=== PATIENT | female | born 1935 | race Caucasian/White ===

== ENCOUNTER → 2017-11-12 07:37 | Outpatient (CLI) | payer MEDICARE, SELFPAY ==
[2017-11-12 08:50] LABS: Microalbumin:Creatinine Ratio 100.8 mg/g CRE (<30 mg/g CRE)
[2017-11-12 08:56] LABS: AST(SGOT) 18 U/L (15-37); Alanine Aminotransfer ALT/SGPT 23 U/L (13-56); Albumin, Serum 3.8 g/dL (3.2-5.0); Alkaline Phosphatase 77 U/L (45-117); Bilirubin, Direct 0.15 mg/dL (0.00-0.30); Cholesterol 88 mg/dL (200); Globulin 3.8 g/dL (2.2-4.2); High Density Lipoprotein 37 mg/dL; Protein, Total 7.6 g/dL (6.4-8.2); Triglycerides 133 mg/dL; Very Low Density Lipoprotein 27 mg/dL (5-40)
[2017-11-12 08:59] LABS: Hemoglobin A1c 7.1 % (4.2-6.3)
[2017-11-12 09:06] LABS: T4 Free Direct 0.96 ng/dL (0.76-1.46)
== END ==
PROVIDERS: Family Provider Internal Medicine; PCP Internal Medicine; Visit Provider Internal Medicine Cardiovascular Disease
DX: E78.5 Hyperlipidemia, unspecified (principal); E11.65 Type 2 diabetes mellitus with hyperglycemia; E03.9 Hypothyroidism, unspecified; Z79.899 Other long term (current) drug therapy
CPT/HCPCS: 36415; 80061; 80076; 82043; 82570; 83036; 84439; 84443

== ENCOUNTER → 2018-03-09 10:24 | Outpatient (CLI) | payer MEDICARE, SELFPAY ==
[2018-03-09 12:52] LABS: Hemoglobin A1c 7.2 % (4.2-6.3)
== END ==
PROVIDERS: Nurse Practitioner Family; Family Provider Internal Medicine; PCP Internal Medicine; Referring Provider Internal Medicine; Visit Provider Internal Medicine
DX: E11.9 Type 2 diabetes mellitus without complications (principal)
CPT/HCPCS: 36415; 83036

== ENCOUNTER → 2018-03-15 13:37 | Outpatient (CLI) | payer MEDICARE, SELFPAY ==
[2018-03-15 16:06] LABS: T4 Free Direct 1.01 ng/dL (0.76-1.46); Thyroid Stim Hormone (TSH) 5.93 uIU/mL (0.358-3.74)
== END ==
PROVIDERS: Family Provider Internal Medicine; PCP Internal Medicine; Referring Provider Internal Medicine; Visit Provider Internal Medicine
DX: E03.9 Hypothyroidism, unspecified (principal)
CPT/HCPCS: 84439; 84443

== ENCOUNTER → 2018-06-05 07:57 | Outpatient (CLI) | payer MEDICARE, SELFPAY ==
[2018-03-12 09:46] VITALS: BMI 27.1
[2018-06-05 08:56] LABS: AST(SGOT) 13 U/L (15-37); Alanine Aminotransfer ALT/SGPT 21 U/L (13-56); Albumin, Serum 3.7 g/dL (3.2-5.0); Alkaline Phosphatase 74 U/L (45-117); Bilirubin, Direct 0.18 mg/dL (0.00-0.30); Cholesterol 115 mg/dL (200); Globulin 3.7 g/dL (2.2-4.2); High Density Lipoprotein 38 mg/dL; Protein, Total 7.4 g/dL (6.4-8.2); Triglycerides 134 mg/dL; Very Low Density Lipoprotein 27 mg/dL (5-40)
[2018-06-05 16:13] LABS: Xtra Tube EP Lab EXTRA TUBE
[2018-06-08 07:49] LABS: Hemoglobin A1c 8.9 % (4.2-6.3)
== END ==
PROVIDERS: Family Provider Internal Medicine; PCP Internal Medicine; Referring Provider Nurse Practitioner Family; Visit Provider Nurse Practitioner Family
DX: E11.9 Type 2 diabetes mellitus without complications (principal); E78.5 Hyperlipidemia, unspecified
CPT/HCPCS: 36415; 80061; 80076; 83036

== ENCOUNTER → 2018-06-22 07:40 | Outpatient (CLI) | payer MEDICARE, SELFPAY ==
[2018-06-08 14:36] VITALS: BMI 26.9
[2018-06-11 09:25] VITALS: BMI 26.9
--- NOTE | 2018-06-22 07:42 | ECHOD_ITS ---
Reason For Study: cabg/mvr Procedure This was a 2D Doppler, Color Flow transthoracic echocardiogram. Exam performed in department. Left Ventricle Normal size and thickness. The estimated ejection fraction is 65 %. No regional wall motion abnormalities noted. Right Ventricle Normal size and thickness. Normal systolic function. Atria Normal left atrium. Normal right atrium. Normal atrial septum. Mitral Valve Peak transmitral valve gradient 8 mmHg. Mean transmitral valve gradient 4 mmHg. Stable appearing bioprosthetic mitral valve apparatus. Tricuspid Valve Normal tricuspid valve. Mild (1+) tricuspid valve insufficiency. Right ventricular systolic pressure estimated to be 31 mmHg. Aortic Valve Trisinus/trileaflet aortic valve. Normal aortic valve. Pulmonic Valve Normal pulmonic valve. Trivial pulmonic valve insufficiency. Great Vessels Normal aortic root. Normal arch. Normal inferior vena cava. Inferior vena cava collapse with sniff. Pericardium/Pleural No pericardial effusion. MMode/2D Measurements & Calculations LVIDd: 3.9 cm IVSd: 0.96 cm Ao root diam: 3.0 cm LVIDs: 2.2 cm LVPWd: 0.91 cm RVDd: 2.5 cm FS: 42.4 % LAV(MOD-bp): 56.1 ml EDV(MOD-sp4): 47.6 ml SV(MOD-sp4): 31.6 ml LAV(MOD-bp) Indexed: 31.4 ml/m2 ESV(MOD-sp4): 16.0 ml LAV(MOD-sp2): 69.4 ml EF(MOD-sp4): 66.4 % LAV(MOD-sp4): 44.2 ml LA dimension(2D): 3.7 cm LA A4 area: 17.1 cm2 RA A4 area: 9.7 cm2 Time Measurements MV dec time: 0.26 sec Doppler Measurements & Calculations MV E max luther: 154.9 cm/sec Lat Peak E' Luther: 7.6 cm/sec Med Peak E' Luther: 5.0 cm/sec MV A max luther: 131.1 cm/sec E/E' lat: 20.5 E/E' med: 31.2 MV E/A: 1.2 MV V2 max: 144.1 cm/sec Ao V2 max: 183.0 cm/sec LV V1 max: 132.2 cm/sec MV max P.3 mmHg Ao max P.4 mmHg LV V1 max P.0 mmHg MV V2 mean: 96.6 cm/sec Ao V2 mean: 130.9 cm/sec LV V1 mean P.9 mmHg MV mean P.1 mmHg Ao mean P.5 mmHg LV V1 mean: 93.9 cm/sec MV V2 VTI: 48.8 cm Ao V2 VTI: 42.0 cm LV V1 VTI: 31.7 cm PA V2 max: 84.3 cm/sec PI end-d luther: 94.4 cm/sec TR max luther: 252.7 cm/sec TR max P.6 mmHg MV P1/2t-pr_phl: 102.5 msec Interpretation Summary The estimated ejection fraction is 65 %. Stable appearing bioprosthetic mitral valve apparatus with normal gradients. Mild (1+) tricuspid valve insufficiency. Right ventricular systolic pressure estimated to be 31 mmHg. Compared to echo report dated 05/07/2017, no appreciable changes noted. Ordering Physician: Ruddy Lewis Referring Physician: Renetta Barr Performed By: Enid Gómez, MICHAEL, RVT
== END ==
PROVIDERS: Family Provider Internal Medicine; PCP Internal Medicine; Referring Provider Internal Medicine Cardiovascular Disease; Visit Provider Internal Medicine Cardiovascular Disease
DX: Z95.3 Presence of xenogenic heart valve (principal); Z95.1 Presence of aortocoronary bypass graft
CPT/HCPCS: 93306

== ENCOUNTER → 2018-06-24 09:19 | Outpatient (CLI) | payer MEDICARE, SELFPAY ==
[2018-06-08 14:36] VITALS: BMI 26.9
[2018-06-11 09:25] VITALS: BMI 26.9
--- NOTE | 2018-06-24 09:22 | STE_ITS ---
Reason For Study: S/P CABG Stress Results Protocol: Stress Echocardiogram Maximum Predicted HR: 140 bpm Target HR: 119 bpm % Maximum Predicted HR: 94 % DurationHeart Rate Stage (mm:ss) (bpm) BP BASELINE 70 132/60 NESTOR PROTOCOL- STAGE 1 3:00 114 142/84 NESTOR PROTOCOL- STAGE 2 0:44 131 / RECOVERY 74 124/60 Stress Duration: 3:44 mm:ss Maximum Stress HR: 131 bpm Baseline Echocardiogram Findings The estimated ejection fraction is 65 %. Stable appearing bioprosthetic mitral valve apparatus. Stress Echo Wall motion Data Resting WM Intermediate WM Stress WM Resting Wall Motion Wall Motion Stress No regional wall motion No regional wall motion abnormalities noted. abnormalities noted. EKG Data The baseline ECG displays normal sinus rhythm. The patient exercised according to the regular Nestor protocol for a total duration of 3:44. The maximum heart rate attained was 131 beats per minute. This was 93% of maximum predicted heart rate. The patient exercised into stage 2 of the Nestor protocol. During stress, there were no ST or T wave changes noted to suggest ischemia. No clinical angina was noted. No arrhythmias noted. Interpretation Summary The estimated ejection fraction is 65 %. Normal, adequate, treadmill echocardiogram. Negative for ischemia by EKG and echocardiographic criteria. No anginal symptoms noted. No arrhythmias noted. Appropriate blood pressure response to exercise. Average exercise capacity for age. Final LVEF is 75%. Test terminated due to the attainment of target heart rate. Ordering Physician: Ruddy Lewis Referring Physician: Ruddy Lewis Performed By: Brianna Fisher RDCS
== END ==
PROVIDERS: Family Provider Internal Medicine; PCP Internal Medicine; Referring Provider Internal Medicine Cardiovascular Disease; Visit Provider Internal Medicine Cardiovascular Disease
DX: I25.10 Atherosclerotic heart disease of native coronary artery without angina pectoris (principal); I48.0 Paroxysmal atrial fibrillation; Z95.3 Presence of xenogenic heart valve
CPT/HCPCS: 93017; 93350

== ENCOUNTER → 2018-07-07 08:08 | Outpatient (CLI) | payer MEDICARE, SELFPAY ==
[2018-06-11 09:25] VITALS: BMI 26.9
[2018-07-07 10:48] LABS: AST(SGOT) 11 U/L (15-37); Alanine Aminotransfer ALT/SGPT 21 U/L (13-56); Albumin, Serum 3.7 g/dL (3.2-5.0); Alkaline Phosphatase 91 U/L (45-117); Bilirubin, Direct 0.11 mg/dL (0.00-0.30); Cholesterol 135 mg/dL (200); Globulin 4.2 g/dL (2.2-4.2); High Density Lipoprotein 36 mg/dL; Protein, Total 7.9 g/dL (6.4-8.2); Triglycerides 158 mg/dL; Very Low Density Lipoprotein 32 mg/dL (5-40)
[2018-07-07 10:55] LABS: T4 Free Direct 0.87 ng/dL (0.76-1.46)
== END ==
PROVIDERS: Nurse Practitioner Family; Family Provider Internal Medicine; PCP Internal Medicine; Referring Provider Internal Medicine; Visit Provider Internal Medicine
DX: E11.9 Type 2 diabetes mellitus without complications (principal); E03.9 Hypothyroidism, unspecified; E78.5 Hyperlipidemia, unspecified
CPT/HCPCS: 36415; 80061; 80076; 83036; 84439; 84443

== ENCOUNTER → 2018-08-27 09:34 | Outpatient (CLI) | payer MEDICARE, SELFPAY ==
[2018-08-10 09:25] VITALS: BMI 26.1
[2018-08-27 13:16] LABS: T4 Free Direct 1.36 ng/dL (0.76-1.46); Thyroid Stim Hormone (TSH) 1.41 uIU/mL (0.358-3.74)
== END ==
PROVIDERS: Family Provider Internal Medicine; PCP Internal Medicine; Visit Provider Internal Medicine
DX: E03.9 Hypothyroidism, unspecified (principal)
CPT/HCPCS: 36415; 84439; 84443

== ENCOUNTER → 2018-10-06 10:38 | Outpatient (CLI) | payer MEDICARE, SELFPAY ==
[2018-10-05 13:29] VITALS: BMI 25.7
[2018-10-06 12:30] LABS: Absolute Lymphocyte Count 1.88 X10^3/ul (0.83-4.51); Absolute Neutrophil Count 3.7 X10^3/uL (2.0-7.7); Basophil# 0.03 X10^3/uL; Basophil% 0.5 % (0-1); Eosinophil# 0.22 X10^3/uL; Eosinophils% 3.3 % (0-5); Hematocrit 41.1 % (37-47); Hemoglobin 13.4 g/dl (12.0-15.0); Lymphocyte # 1.88 X10^3/ul (4.0); Lymphocyte % 28.6 % (19-41); Mean Corp Hgb Conc 32.6 g/gl (32-36); Mean Corpuscular Hgb 29.1 pg (27.0-32.0); Mean Corpuscular Volume 89.2 fL (81-99); Mean Platelet Vol. 11.5 fl (6.2-12.0); Monocyte# 0.77 X10^3/uL; Monocyte% 11.7 % (0-10); Neutrophil # 3.67 X10^3/uL (2.7-7.7); Neutrophil % 55.7 % (47-70); Platelet Count 267 K/mm3 (150-450); RBC Distribution Width CV 13.7 % (11.6-14.6); Red Blood Count 4.61 M/mm3 (4.2-5.4); White Blood Count 6.6 K/mm3 (4.4-11.0)
[2018-10-06 12:36] LABS: POSITIVE COUNT NO; POSITIVE DIFFERENTIAL NO; POSITIVE MORPHOLOGY NO
== END ==
PROVIDERS: Family Provider Internal Medicine; PCP Internal Medicine; Visit Provider Nurse Practitioner Family
DX: E78.5 Hyperlipidemia, unspecified (principal); R53.83 Other fatigue
CPT/HCPCS: 36415; 85025

== ENCOUNTER → 2019-01-06 09:04 | Outpatient (CLI) | payer MEDICARE, SELFPAY ==
[2019-01-05 09:30] VITALS: BMI 25.7
[2019-01-06 12:53] LABS: Microalbumin,Random Urine 10.8 mg/L (NO RANGE EST.); Microalbumin:Creatinine Ratio 17.2 mg/g CRE (<30 mg/g CRE); T4 Free Direct 0.86 ng/dL (0.76-1.46); Thyroid Stim Hormone (TSH) 2.85 uIU/mL (0.358-3.74)
[2019-01-06 12:55] LABS: AST(SGOT) 16 U/L (15-37); Alanine Aminotransfer ALT/SGPT 19 U/L (13-56); Albumin, Serum 3.6 g/dL (3.2-5.0); Alkaline Phosphatase 63 U/L (45-117); Bilirubin, Direct 0.12 mg/dL (0.00-0.30); Cholesterol 109 mg/dL (200); Globulin 3.9 g/dL (2.2-4.2); High Density Lipoprotein 39 mg/dL; Protein, Total 7.5 g/dL (6.4-8.2); Triglycerides 112 mg/dL; Very Low Density Lipoprotein 22 mg/dL (5-40)
== END ==
PROVIDERS: Nurse Practitioner Family; Family Provider Internal Medicine; PCP Internal Medicine; Visit Provider Internal Medicine
DX: E11.9 Type 2 diabetes mellitus without complications (principal); E78.5 Hyperlipidemia, unspecified; E03.9 Hypothyroidism, unspecified
CPT/HCPCS: 36415; 80061; 80076; 82043; 82570; 84439; 84443

== ENCOUNTER → 2019-03-17 09:15 | Outpatient (CLI) | payer MEDICARE, SELFPAY ==
[2019-03-16 13:26] VITALS: BMI 24.3
[2019-03-17 11:00] LABS: Prolactin 16.9 ng/mL
== END ==
PROVIDERS: Family Provider Internal Medicine; PCP Internal Medicine; Visit Provider Internal Medicine
DX: N64.52 Nipple discharge (principal)
CPT/HCPCS: 36415; 84146

== ENCOUNTER → 2019-03-22 | Outpatient (CLI) | payer MEDICARE, SELFPAY ==
[2019-03-16 13:26] VITALS: BMI 24.3
--- NOTE | 2019-03-22 08:36 | BI_ITS ---
MAMMOGRAPHY - BILATERAL DIAGNOSTIC REASON FOR EXAM: Female, 83 years old. Six-month history of right breast discharge. PERTINENT HISTORY: Non-contributory. TECHNIQUE: Digital bilateral breast kaylin (3D mammographic acquisition) in the CC and MLO projections. 2-D mediolateral oblique (MLO) and craniocaudad (CC) views of both breasts were obtained. Compression spot views of the breast were obtained as well. CAD: Full Field Digital Mammography with Computer Added Detection was performed. COMPARISON: Comparison is made with prior mammogram dated March 16, 2008. FINDINGS: Breast Composition: There are scattered areas of fibroglandular density. There are no dominant masses or suspicious calcifications. Amorphous calcifications are now seen in the inferior medial aspect of the right breast. A biopsy is recommended. No other significant abnormalities are identified. BI/DIAG MAMM W/CAD, BILAT IMPRESSION: Amorphous calcifications seen in the inferior medial aspect of the right breast. Biopsy recommended. ASSESSMENT CATEGORY: BIRADS Category 4: Suspicious - Biopsy Should Be Considered. A letter regarding these results will be sent to the patient by the facility within 30 days. Approximately 10% of breast cancers are not detected by mammography. A normal mammogram should not delay biopsy of a clinically suspicious abnormality. Electronically Signed: Abel Mcmahon, at 11:16 EDT , Service support ,
--- NOTE | 2019-03-22 10:03 | US_ITS ---
STUDY: ULTRASOUND BREAST - RIGHT REASON FOR EXAM: Female, 83 years old. Patient has a history of right nipple discharge. TECHNIQUE: Axial and longitudinal images of the RIGHT breast were performed with a high resolution ultrasound transducer. COMPARISON: Comparison is made with prior mammogram done earlier in the day. FINDINGS: RIGHT Breast: The retroareolar region of the right breast was examined by ultrasound. No sonographic abnormality is seen US/Breast Limited Unilateral IMPRESSION: No sonographic abnormality is seen. ASSESSMENT CATEGORY: BIRADS Category 1: Negative. A letter regarding these results will be sent to the patient by the facility within 30 days. Electronically Signed: Abel Mcmahon, at 11:01 EDT , Service support ,
== END | disposition home or self-care (01) ==
LOC: OPBI 08:34
PROVIDERS: Family Provider Internal Medicine; PCP Internal Medicine; Referring Provider Internal Medicine; Visit Provider Internal Medicine
DX: N64.52 Nipple discharge (principal)
CPT/HCPCS: 76642; 77062; 77066; G0279

== ENCOUNTER → 2019-04-05 10:27 | Outpatient (CLI) | payer MEDICARE, SELFPAY ==
--- NOTE | 2019-03-24 02:56 | HP_ITS ---
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 Is patient in pain?: No Allergies cortisone Allergy (Verified 03/16/19 13:23) Hives erythromycin base Allergy (Verified 03/16/19 13:23) Swelling Medications aspirin 81 mg tablet,delayed release PO 07/29/17 [History Confirmed 03/24/19] trazodone 50 mg tablet 25 mg PO QHS PRN #60 tab 11/27/17 [Rx Confirmed 03/24/19] citalopram 10 mg tablet 10 mg PO DAILY 06/08/18 [History Confirmed 03/24/19] losartan 50 mg tablet 25 mg PO QDAY tab 06/11/18 [History Confirmed 03/24/19] sitagliptin 100 mg tablet 100 mg PO DAILY #90 tab 06/11/18 [Rx Confirmed 03/24/19] levothyroxine 75 mcg tablet 75 mcg PO QDAY #90 tab 07/07/18 [Rx Confirmed 03/24/19] blood sugar diagnostic strips See Dose Instructions .ROUTE .MEDSUPPLY #50 ea 08/30/18 [Rx Confirmed 03/24/19] metformin 500 mg tablet 1,000 mg PO BID 90 Days #360 tab 10/05/18 [Rx Confirmed 03/24/19] metoprolol tartrate 50 mg tablet 50 mg PO BID tab 10/05/18 [History Confirmed 03/24/19] rosuvastatin 40 mg tablet 40 mg PO QDAY #90 tab 10/12/18 [Rx Confirmed 03/24/19] Is last menstrual period known: No Post menopausal: Yes Patient : No PFSH Medical History Paroxysmal atrial fibrillation (Chronic) Atherosclerosis of coronary artery of [place] heart without angina 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) Diabetes type 2, uncontrolled (Chronic) Tremor (Chronic) Syncope (Chronic) IBS (irritable bowel syndrome) (Chronic) GERD (gastroesophageal reflux disease) (Chronic) Hypothyroidism (Chronic) Hyperlipemia (Chronic) Hypertension (Chronic) History of hysterectomy (Chronic) Surgical History History of mitral valve replacement with bioprosthetic valve (Chronic 11/23/09) 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) History of carpal tunnel release (Chronic) History of knee surgery (Chronic) Family History Mother Heart disease Myocardial infarction Father Tuberculosis Brother Diabetes Sister Heart disease Social History (Updated 03/24/19 @ 14:57 by Ruddy Humphries MD) Smoking Status: Never smoker alcohol intake: never substance use type: does not use what type of physical activity do you participate in: none HPI HPI HPI: LAKEISHA SHIRLEY, is a 83 F who presents to the office today for HPI HPI Surgical H&P: Yes HPI: LAKEISHA SHIRLEY, is a 83 F who presents to the office today for Evaluation of an abnormal mammogram. Patient had her mammograms completed was [facility] on 03/22/2019. This came back showing a amorphous calcification seen in the inferior medial aspect of the right breast and a biopsy was recommended. They gave this a BI-RADS Category 4. Patient has had numerous biopsies in the past never a stereotactic breast biopsy though. She is not having any breast pain at the present time she is not experiencing any nipple discharge. ROS General General: No weight change, appetite, fatigue, colon cancer, breast cancer or weakness HEENT HEENT: No difficulty swallowing, eye injury, eye surgery, swollen glands or hoarseness Endo Endocrine: Yes thyroid disease and diabetes mellitus; no thyroid cancer, Hair loss, heat intolerance or cold intolerance Breast Breast: Yes nipple discharge and abnormal mammogram; no left breast lump, right breast lump, breast pain, abnormal US or breast enlargement Cardio Cardiovascular: Yes heart disease, atrial fibrillation and high blood pressure; no murmur, pacemaker, heart attack, heart stent, palpitations, shortness of breat with exertion or chest pain Additional Details: CABG, CAD, Mitral valve replacement Resp Respiratory: No shortness of breath, No sleep apnea, No cough, No COPD, No asthma, No emphysema, No wheezing Gastro Gastrointestinal: No abdominal pain, No nausea or vomiting, Yes diarrhea, No constipation, No blood in stool, Yes acid reflux, No hemorrhoids, No ulcers, No gallbladder problem, No black,tarry stools Neuro Neurologic: No weakness Exam [facility] Head: normal to inspection, normocephalic, atraumatic Mouth: oropharynx normal, moist mucous membranes Eyes General: appearance normal, both eyes and all related structures Sclera: sclerae normal Neck Neck: trachea midline, no lymphadenopathy noted Neck mass: No Thyroid: thyroid normal Lymphatic: no lymphadenopathy noted Chest Breast inspection: normal inspection of the breasts Breast Palpation: Yes nipple discharge Resp Other: Respiratory Exam: Deferred Cardio Heart Sounds: no murmurs Other: Cardiac Exam: Deferred GI Other: GI Exam: Deferred Other: Rectal Exam: Deferred Extrem Other: Extremity Exam: Deferred Assessment & Plan Problems 1. Microcalcification of right breast on mammogram R92.0 Plan I have discussed above with the patient. I have recommended Stereotactic guided needle core breast biopsy with vacuum assistance. I have described the procedure to the patient. I have discussed with the patient that sometimes the Stereotactic lesion may be artifact and is user dependent and therefore prior to undergoing the procedure, the patient will have a definitive US to ensure that the lesion is truly present and is not artifact. A marker clip will be placed to identify the location. Patient has been counseled to the risks/benefits of the procedure. I have explained the risks of the surgery, including but not limited to: infection, bleeding, injury to any blood vessels/nerves, scar tissue, missing the lesion, further surgery, etc. - the patient understands and agrees to proceed. I have answered all of the patient's questions to her satisfaction and she has no further questions. Coding Level of Care Code Off vis,new,level 3 Diagnoses Microcalcification of right breast on mammogram R92.0 03/24/19 0550 <Electronically signed by Ruddy iniguez MD> Date _ Ruddy Humphries MD I have re-examined the patient. There are no clinical changes since date of exam.
[2019-03-24 14:40] VITALS: BMI 24.3
--- NOTE | 2019-04-05 | IMM_PTH ---
PATIENT: LAKEISHA SHIRLEY LOC: [facility] U#:[id number] AGE/SX: 89/F ROOM: RE04/05/[address]: Dr. Ruddy Humphries MD : 1935 BED: DIS: SPEC #: [id number] RECD: 04/06/19 12:18 STATUS: AIDE REQ #: [id number] DENNIS: 04/05/19 00:[address]: Ruddy Humphries DEPT: IMMUNOHISTOCHEMISTRY RECD BY: Destini Win ENTERED: 04/06/19 12:20 SP TYPE: IMMUNO OTHR DR: Dr. Renetta Barr MD Tissues: Right breast, NOS Procedures: CALPONIN-1 (add) CK5-6 (add) CK8 (add) E-CAD (add) HER2 STACI (add) KI-67 (add) P53 (add) NC (add) P40 (add) ER (initial) PHYSICIAN & INSTITUTION [place] [id number] SPECIMEN INFORMATION: Tissue Source: Right breast core tissue Clinical Info: Right breast medial inferior microcalcification Specimen Number: [id number] #[id number] CPT code: 66019, 57880 x6, 52410 x3 METHODOLOGY: Deparaffinized sections of prefer/formalin-fixed tissue or PAP/DQ stained slides are incubated with monoclonal/polyclonal antibodies/oligonucleotide probes. Localization is made via biotin free immunoperoxidase method. Appropriate controls are performed and reacted as expected. Results on target cell population are indicated in the following table: RESULTS: ANTIBODY / CLONE RESULT Block 5 E-Cad (ECH-6) positive CK8 (37oyrrH48) positive Calponin-1 (EZ706M) negative CK5-6 (D5 & 1684) negative P40 (BC28) negative P53 (DO-7) positive, moderate Ki-67 (30-9) positive, low MORPHOMETRIC ANALYSIS ER (clone 6F11) 0% NC (clone 16/1E2) 0% Her-2Neu (clone CB11) 3+ The prognostic test for HER2 is performed on formalin-fixed paraffin embedded tissue. A 3+ (positive) staining pattern is defined as intense, homogeneous, complete, circumferential membranous staining in >10% of contiguous tumor cells. A similar weak (2+) staining pattern is interpreted as equivocal. CARMEN follow-up testing is recommended for all equivocal cases. Positivity/negativity for ER/NC is reported if > or < 1% of the tumor cells are immuno- reactive, respectively. The ASCO/CAP criteria is used for scoring. Reference: Journal of Clinical Oncology, 2013; 31:9136-8901 & 2010; 16:3474-3305. Duration of fixation: 8 Hrs; Sample Adequate: Yes. These assays have not been validated on decalcified tissues. Results should be interpreted with caution given the likelihood of false negativity on decalcified specimens. These tests were developed and their performance characteristics determined by [facility]. They may not have been cleared or approved by the U.S. Food and Drug Administration. The FDA has determined that such clearance or approval is not necessary. The above immunohistochemical/dualISH markers are ordered and reviewed by the Pathologist. INTERPRETATION: Right breast, medial inferior microcalcification, stereotactic core biopsy: Invasive ductal carcinoma, nuclear grade 3. Negative for estrogen receptors (unfavorable prognostic indicator). Negative for progesterone receptors (unfavorable prognostic indicator). Positive for overexpression of FGN0khf. SJ:westley 04/07/19 Case has been reviewed in consultation with Dr. Gaming who concurs with the above diagnosis. IDC:AM
--- NOTE | 2019-04-05 11:00 | BRBX_PTH ---
PATIENT: LAKEISHA SHIRLEY LOC: [facility] U#:[id number] AGE/SX: 89/F ROOM: RE04/05/[address]: Dr. Ruddy Humphries MD : 1935 BED: DIS: SPEC #: [id number] RECD: 04/05/19 11:59 STATUS: AIDE REGINO #: [id number] DENNIS: 04/05/19 11:[address]: Ruddy Humphries DEPT: SURGICAL PATHOLOGY RECD BY: Beatriz Johnson ENTERED: 04/05/19 12:19 SP TYPE: BREAST BX OTHR DR: Dr. Renetta Barr MD Tissues: Right breast, NOS Procedures: Surgery Specimen Level IV HEADER OPERATION: Right stereotactic breast biopsy PRE-OP DIAGNOSIS: Right breast medial inferior microcalcification TISSUE SUBMITTED: Right breast core tissue ISCHEMIC TIME: 1 minute FIXATION TIME: 8 hours MICROSCOPIC DIAGNOSIS Right breast, medial inferior microcalcifications, stereotactic core biopsy: Invasive ductal carcinoma (0.3 cm in greatest dimension). Additional findings - fibrocystic changes, adenosis and intraductal hyperplasia with focal atypia. Focal microcalcifications. See comment. JAMMIE:westley 04/06/19 COMMENT Immunohistochemistry ([id number]) supports the above diagnosis. ER/NJ/Sog4uxa studies are being performed on sections of tumor and the results from this study will be reported separately ([id number]). Case has been reviewed in consultation with Dr. Gaming who concurs with the above diagnosis. IDC:AM MICROSCOPIC DESCRIPTION Slides are reviewed. GROSS DESCRIPTION Received is one container labeled with the patient's name and not further designated. The specimen consists of multiple elongated fragments of velasco-yellow fibroadipose tissue that in aggregate measure 5 x 3 x 0.8 cm. The entire specimen is submitted in five cassettes. / JAMMIE:westley 04/05/19 TC:0 CPT: 57642
--- NOTE | 2019-04-05 11:34 | PCM.HP.BLA ---
History and Physical Date of Admission: 04/05/19 [facility] Medical Records Department [address] [place] [address] History and Physical 03/24/19 0256 MR#: [id number] Acct: [id number] Name: LAKEISHA SHIRLEY Rep #: [id number] : 1935 83 From: Ruddy Humphries MD PCP: Renetta Barr MD Status: PRE CLI Location: [facility] Intake Vital Signs 03/24/19 Body Mass Index (BMI) 24.3 03/24/19 Height 5 ft 5 in 03/24/19 Weight: 146 lb 2 oz 03/24/19 Body Mass Index (BMI) 24.3 03/24/19 Blood Pressure 139/69 H 03/24/19 Blood Pressure Location Rt brachial 03/24/19 Blood Pressure Position Sitting 03/24/19 Respiratory Rate 20 H 03/24/19 Pulse Rate 70 03/24/19 Pulse Ox 99 Intake Visit Reasons: Rt Breast Birads 4 Chief Complaint: discharge Rt breast Straddle Bug Operator Required: No Is patient in pain?: No Allergies cortisone Allergy (Verified 03/16/19 13:23) Hives erythromycin base Allergy (Verified 03/16/19 13:23) Swelling Medications aspirin 81 mg tablet,delayed release PO 07/29/17 [History Confirmed 03/24/19] trazodone 50 mg tablet 25 mg PO QHS PRN #60 tab 11/27/17 [Rx Confirmed 03/24/19] citalopram 10 mg tablet 10 mg PO DAILY 06/08/18 [History Confirmed 03/24/19] losartan 50 mg tablet 25 mg PO QDAY tab 06/11/18 [History Confirmed 03/24/19] sitagliptin 100 mg tablet 100 mg PO DAILY #90 tab 06/11/18 [Rx Confirmed 03/24/19] levothyroxine 75 mcg tablet 75 mcg PO QDAY #90 tab 07/07/18 [Rx Confirmed 03/24/19] blood sugar diagnostic strips See Dose Instructions .ROUTE .MEDSUPPLY #50 ea 08/30/18 [Rx Confirmed 03/24/19] metformin 500 mg tablet 1,000 mg PO BID 90 Days #360 tab 10/05/18 [Rx Confirmed 03/24/19] metoprolol tartrate 50 mg tablet 50 mg PO BID tab 10/05/18 [History Confirmed 03/24/19] rosuvastatin 40 mg tablet 40 mg PO QDAY #90 tab 10/12/18 [Rx Confirmed 03/24/19] Is last menstrual period known: No Post menopausal: Yes Patient : No PFSH Medical History Paroxysmal atrial fibrillation (Chronic) Atherosclerosis of coronary artery of [place] heart without angina 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) Diabetes type 2, uncontrolled (Chronic) Tremor (Chronic) Syncope (Chronic) IBS (irritable bowel syndrome) (Chronic) GERD (gastroesophageal reflux disease) (Chronic) Hypothyroidism (Chronic) Hyperlipemia (Chronic) Hypertension (Chronic) History of hysterectomy (Chronic) Surgical History History of mitral valve replacement with bioprosthetic valve (Chronic 11/23/09) 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) History of carpal tunnel release (Chronic) History of knee surgery (Chronic) Family History Mother Heart disease Myocardial infarction Father Tuberculosis Brother Diabetes Sister Heart disease Social History (Updated 03/24/19 @ 14:57 by Ruddy Humphries MD) Smoking Status: Never smoker alcohol intake: never substance use type: does not use what type of physical activity do you participate in: none HPI HPI HPI: LAKEISHA SHIRLEY is a 83 F who presents to the office today for HPI HPI Surgical H&P: Yes HPI: LAKEISHA SHIRLEY, is a 83 F who presents to the office today for Evaluation of an abnormal mammogram. Patient had her mammograms completed [facility] on 03/22/2019. This came back showing a amorphous calcification seen in the inferior medial aspect of the right breast and a biopsy was recommended. They gave this a BI-RADS Category 4. Patient has had numerous biopsies in the past never a stereotactic breast biopsy though. She is not having any breast pain at the present time she is not experiencing any nipple discharge. ROS General General: No weight change, appetite, fatigue, colon cancer, breast cancer or weakness HEENT HEENT: No difficulty swallowing, eye injury, eye surgery, swollen glands or hoarseness Endo Endocrine: Yes thyroid disease and diabetes mellitus; no thyroid cancer, Hair loss, heat intolerance or cold intolerance Breast Breast: Yes nipple discharge and abnormal mammogram; no left breast lump, right breast lump, breast pain, abnormal US or breast enlargement Cardio Cardiovascular: Yes heart disease, atrial fibrillation and high blood pressure; no murmur, pacemaker, heart attack, heart stent, palpitations, shortness of breat with exertion or chest pain Additional Details: CABG, CAD, Mitral valve replacement Resp Respiratory: No shortness of breath, No sleep apnea, No cough, No COPD, No asthma, No emphysema, No wheezing Gastro Gastrointestinal: No abdominal pain, No nausea or vomiting, Yes diarrhea, No constipation, No blood in stool, Yes acid reflux, No hemorrhoids, No ulcers, No gallbladder problem, No black,tarry stools Neuro Neurologic: No weakness Exam HENMT Head: normal to inspection, normocephalic, atraumatic Mouth: oropharynx normal, moist mucous membranes Eyes General: appearance normal, both eyes and all related structures Sclera: sclerae normal Neck Neck: trachea midline, no lymphadenopathy noted Neck mass: No Thyroid: thyroid normal Lymphatic: no lymphadenopathy noted Chest Breast inspection: normal inspection of the breasts Breast Palpation: Yes nipple discharge Resp Other: Respiratory Exam: Deferred Cardio Heart Sounds: no murmurs Other: Cardiac Exam: Deferred GI Other: GI Exam: Deferred Other: Rectal Exam: Deferred Extrem Other: Extremity Exam: Deferred Assessment & Plan Problems 1. Microcalcification of right breast on mammogram R92.0 Plan I have discussed above with the patient. I have recommended Stereotactic guided needle core breast biopsy with vacuum assistance. I have described the procedure to the patient. I have discussed with the patient that sometimes the Stereotactic lesion may be artifact and is user dependent and therefore prior to undergoing the procedure, the patient will have a definitive US to ensure that the lesion is truly present and is not artifact. A marker clip will be placed to identify the location. Patient has been counseled to the risks/benefits of the procedure. I have explained the risks of the surgery, including but not limited to: infection, bleeding, injury to any blood vessels/nerves, scar tissue, missing the lesion, further surgery, etc. - the patient understands and agrees to proceed. I have answered all of the patient's questions to her satisfaction and she has no further questions. Coding Level of Care Code Off vis,new,level 3 Diagnoses Microcalcification of right breast on mammogram R92.0 03/24/19 1457 <Electronically signed by Ruddy Humphries MD> Date Ruddy Humphries MD Date: Time: Ruddy Humphries MD CC: ~ Date Dictated: 03/24/19 0256 Date Transcribed: 03/28/19 1033 Riding Double: Draft I have re-examined the patient. There are no clinical changes since date of exam.
--- NOTE | 2019-04-05 11:35 | PCM.OPRPT ---
Problem List (1) Microcalcification of right breast on mammogram Status: Acute Report of Operation Date of Procedure: 04/05/19 Pre-Operative Diagnosis: Microcalcifications to right breast Post-Operative Diagnosis: Same Surgery/Procedure Performed:: Right stereotactic breast biopsy Type of Anesthesia:: Local Description of Procedure: Patient was brought into the mammography unit placed in the supine position on the fissure table. Right breast was brought down through the opening. Medial to lateral view was obtained. Microcalcifications were identified ?15 degrees views were obtained. I targeted on the microcalcifications. I prepped the breast with Betadine. I injected 1% lidocaine plain. A skin gila was made. I placed the needle in the prefire position. 2 more stereo views were obtained showing the microcalcifications to be targeted appropriately. I fired the needle and took 360 degree circumferential biopsies. I x-rayed my specimen. Micro calcifications were identified. I backed the needle off 6 mm and placed a small titanium clip in the biopsy cavity. Sterile dressings were applied. Mammograms were obtained. Patient tolerated the procedure well. - Admit VTE Documentation VTE Present on Admission: No VTE Mechan Device Prophylaxis: None VTE Pharm Prophylaxis ordered?: No Reason prophylaxis not ordered:: Treatment Not Indicated
== END ==
PROVIDERS: Family Provider Internal Medicine; PCP Internal Medicine; Referring Provider Surgery; Visit Provider Surgery
DX: C50.311 Malignant neoplasm of lower-inner quadrant of right female breast (principal); N60.21 Fibroadenosis of right breast; N62 Hypertrophy of breast; I48.0 Paroxysmal atrial fibrillation; I25.10 Atherosclerotic heart disease of native coronary artery without angina pectoris; I05.2 Rheumatic mitral stenosis with insufficiency; E11.65 Type 2 diabetes mellitus with hyperglycemia; I10 Essential (primary) hypertension; E03.9 Hypothyroidism, unspecified; E78.5 Hyperlipidemia, unspecified; K58.9 Irritable bowel syndrome, unspecified; K21.9 Gastro-esophageal reflux disease without esophagitis; Z78.0 Asymptomatic menopausal state; Z79.82 Long term (current) use of aspirin; Z79.84 Long term (current) use of oral hypoglycemic drugs; Z79.899 Other long term (current) drug therapy; Z88.1 Allergy status to other antibiotic agents; Z95.2 Presence of prosthetic heart valve; Z90.710 Acquired absence of both cervix and uterus; Z95.1 Presence of aortocoronary bypass graft
CPT/HCPCS: 19081; 88305; 88341; 88342; J7050; A4648

== ENCOUNTER 2019-04-26 15:01 | Observation (INO) | payer MEDICARE, SELFPAY ==
--- NOTE | 2019-03-24 02:56 | HP_ITS ---
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 Is patient in pain?: No Allergies cortisone Allergy (Verified 03/16/19 13:23) Hives erythromycin base Allergy (Verified 03/16/19 13:23) Swelling Medications aspirin 81 mg tablet,delayed release PO 07/29/17 [History Confirmed 03/24/19] trazodone 50 mg tablet 25 mg PO QHS PRN #60 tab 11/27/17 [Rx Confirmed 03/24/19] citalopram 10 mg tablet 10 mg PO DAILY 06/08/18 [History Confirmed 03/24/19] losartan 50 mg tablet 25 mg PO QDAY tab 06/11/18 [History Confirmed 03/24/19] sitagliptin 100 mg tablet 100 mg PO DAILY #90 tab 06/11/18 [Rx Confirmed 03/24/19] levothyroxine 75 mcg tablet 75 mcg PO QDAY #90 tab 07/07/18 [Rx Confirmed 03/24/19] blood sugar diagnostic strips See Dose Instructions .ROUTE .MEDSUPPLY #50 ea 08/30/18 [Rx Confirmed 03/24/19] metformin 500 mg tablet 1,000 mg PO BID 90 Days #360 tab 10/05/18 [Rx Confirmed 03/24/19] metoprolol tartrate 50 mg tablet 50 mg PO BID tab 10/05/18 [History Confirmed 03/24/19] rosuvastatin 40 mg tablet 40 mg PO QDAY #90 tab 10/12/18 [Rx Confirmed 03/24/19] Is last menstrual period known: No Post menopausal: Yes Patient : No PFSH Medical History Paroxysmal atrial fibrillation (Chronic) Atherosclerosis of coronary artery of [place] heart without angina 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) Diabetes type 2, uncontrolled (Chronic) Tremor (Chronic) Syncope (Chronic) IBS (irritable bowel syndrome) (Chronic) GERD (gastroesophageal reflux disease) (Chronic) Hypothyroidism (Chronic) Hyperlipemia (Chronic) Hypertension (Chronic) History of hysterectomy (Chronic) Surgical History History of mitral valve replacement with bioprosthetic valve (Chronic 11/23/09) 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) History of carpal tunnel release (Chronic) History of knee surgery (Chronic) Family History Mother Heart disease Myocardial infarction Father Tuberculosis Brother Diabetes Sister Heart disease Social History (Updated 03/24/19 @ 14:57 by Ruddy Humphries MD) Smoking Status: Never smoker alcohol intake: never substance use type: does not use what type of physical activity do you participate in: none HPI HPI HPI: LAKEISHA SHIRLEY, is a 83 F who presents to the office today for HPI HPI Surgical H&P: Yes HPI: LAKEISHA SHIRLEY, is a 83 F who presents to the office today for Evaluation of an abnormal mammogram. Patient had her mammograms completed was [facility] on 03/22/2019. This came back showing a amorphous calcification seen in the inferior medial aspect of the right breast and a biopsy was recommended. They gave this a BI-RADS Category 4. Patient has had numerous biopsies in the past never a stereotactic breast biopsy though. She is not having any breast pain at the present time she is not experiencing any nipple discharge. ROS General General: No weight change, appetite, fatigue, colon cancer, breast cancer or weakness HEENT HEENT: No difficulty swallowing, eye injury, eye surgery, swollen glands or hoarseness Endo Endocrine: Yes thyroid disease and diabetes mellitus; no thyroid cancer, Hair loss, heat intolerance or cold intolerance Breast Breast: Yes nipple discharge and abnormal mammogram; no left breast lump, right breast lump, breast pain, abnormal US or breast enlargement Cardio Cardiovascular: Yes heart disease, atrial fibrillation and high blood pressure; no murmur, pacemaker, heart attack, heart stent, palpitations, shortness of breat with exertion or chest pain Additional Details: CABG, CAD, Mitral valve replacement Resp Respiratory: No shortness of breath, No sleep apnea, No cough, No COPD, No asthma, No emphysema, No wheezing Gastro Gastrointestinal: No abdominal pain, No nausea or vomiting, Yes diarrhea, No constipation, No blood in stool, Yes acid reflux, No hemorrhoids, No ulcers, No gallbladder problem, No black,tarry stools Neuro Neurologic: No weakness Exam [facility] Head: normal to inspection, normocephalic, atraumatic Mouth: oropharynx normal, moist mucous membranes Eyes General: appearance normal, both eyes and all related structures Sclera: sclerae normal Neck Neck: trachea midline, no lymphadenopathy noted Neck mass: No Thyroid: thyroid normal Lymphatic: no lymphadenopathy noted Chest Breast inspection: normal inspection of the breasts Breast Palpation: Yes nipple discharge Resp Other: Respiratory Exam: Deferred Cardio Heart Sounds: no murmurs Other: Cardiac Exam: Deferred GI Other: GI Exam: Deferred Other: Rectal Exam: Deferred Extrem Other: Extremity Exam: Deferred Assessment & Plan Problems 1. Microcalcification of right breast on mammogram R92.0 Plan I have discussed above with the patient. I have recommended Stereotactic guided needle core breast biopsy with vacuum assistance. I have described the procedure to the patient. I have discussed with the patient that sometimes the Stereotactic lesion may be artifact and is user dependent and therefore prior to undergoing the procedure, the patient will have a definitive US to ensure that the lesion is truly present and is not artifact. A marker clip will be placed to identify the location. Patient has been counseled to the risks/benefits of the procedure. I have explained the risks of the surgery, including but not limited to: infection, bleeding, injury to any blood vessels/nerves, scar tissue, missing the lesion, further surgery, etc. - the patient understands and agrees to proceed. I have answered all of the patient's questions to her satisfaction and she has no further questions. Coding Level of Care Code Off vis,new,level 3 Diagnoses Microcalcification of right breast on mammogram R92.0 03/24/19 8311 <Electronically signed by Ruddy iniguez MD> Date _ Ruddy Humphries MD
[2019-04-11 09:22] VITALS: BMI 24.3
--- NOTE | 2019-04-18 09:11 | EKG12_ITS ---
Test Reason : PRE-OP Blood Pressure : / mmHG Vent. Rate : 073 BPM Atrial Rate : 073 BPM P-R Int : 178 ms QRS Dur : 070 ms QT Int : 386 ms P-R-T Axes : 030 037 031 degrees QTc Int : 425 ms Normal sinus rhythm Normal ECG Confirmed by KEHINDE MARQUEZ, LENORA ([id number]), assignment editor SELINA REYES ([id number]) on 04/19/2019 9:49:20 AM Referred By: Ruddy Humphries Confirmed By:LENORA BUSBY MD
[2019-04-18 10:31] LABS: Hematocrit 38.5 % (37-47); Hemoglobin 12.5 g/dL (12.0-15.0); Mean Corp Hgb Conc 32.5 g/dL (32-36); Mean Corpuscular Hgb 29.6 pg (27.0-32.0); Mean Platelet Vol. 11.2 fl (6.2-12.0); Platelet Count 266 K/mm3 (150-450); RBC Distribution Width CV 13.6 % (11.6-14.6); RBC Distribution Width SD 45.5 fl (35.1-43.9); Red Blood Count 4.23 M/mm3 (4.2-5.4); White Blood Count 6.4 K/mm3 (4.4-11.0)
[2019-04-18 11:28] LABS: Anion Gap 5 (5-15); BUN 19 mg/dL (7-18); Chloride 106 mmol/L (98-107); EST Glomerular Filtration Rate 57 mL/min (>60); Est Glom Filt Rate - Afr Amer 68 mL/min (>60); Glucose 139 mg/dL (74-106); Sodium Level 138 mmol/L (136-145)
[2019-04-26] VITALS (13 sets, daily range): BP systolic 93–124; BP diastolic 40–72; PULSE 63–81; RESP 16–18; TEMP 35.9–36.8; O2SAT 92–100; BMI 25.0
--- NOTE | 2019-04-26 | IMM_PTH ---
PATIENT: LAKEISHA SHIRLEY LOC: MS3 U#:[id number] AGE/SX: 83/F ROOM: MS307 RE04/26/[address]: Dr. Ruddy Humphries MD : 1935 BED: 1 DIS: 04/27/2019 SPEC #: [id number] RECD: 05/02/19 12:10 STATUS: AIDE REQ #: [id number] DENNIS: 04/26/19 00:[address]: Ruddy Humphries DEPT: IMMUNOHISTOCHEMISTRY RECD BY: Beatriz Johnson ENTERED: 05/02/19 12:11 SP TYPE: IMMUNO OTHR DR: MD Dr. Renetta Urrutia MD Tissues: Lymph node, NOS Procedures: CK8 (initial) CK8 (add) ER (add) P53 (add) MN (add) Pankeratin (initial) Pankeratin (add) PHYSICIAN & INSTITUTION [place] [address] SPECIMEN INFORMATION: Tissue Source: A. [place] lymph node biopsy, B. 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 Localization is made via biotin free immunoperoxidase method. Appropriate controls are performed and reacted as expected. Results on target cell population are indicated in the following table: RESULTS: ANTIBODY / CLONE RESULT Block A1 AE1-3 (AE1/AE3/PCK26) negative CK8 (75hwiiU20) negative Block A2 AE1-3 (AE1/AE3/PCK26) negative CK8 (67tztjC41) negative Block A3 AE1-3 (AE1/AE3/PCK26) negative CK8 (32ckhrM71) negative Block B1 CK8 (78fkztP91) positive ER (6F11) negative MN (1E2) negative P53 (DO-7) negative These tests were developed and their performance characteristics determined by [facility]. They may not have been cleared or approved by the U.S. Food and Drug Administration. The FDA has determined that such clearance or approval is not necessary. The above immunohistochemical/dualISH markers are ordered and reviewed by the Pathologist. INTERPRETATION: A. Right axillary sentinel lymph nodes, biopsy: Two out of 2 lymph nodes negative for carcinoma B. Right breast, lumpectomy: Consistent with Paget's disease of nipple AM:cc 05/03/19
--- NOTE | 2019-04-26 | AXNB_PTH ---
PATIENT: LAKEISHA HSIRLEY LOC: MS3 U#:[id number] AGE/SX: 83/F ROOM: MS307 RE04/26/[address]: Dr. Ruddy Humphries MD : 1935 BED: 1 DIS: 04/27/2019 SPEC #: [id number] RECD: 04/26/19 11:46 STATUS: AIDE REQ #: [id number] DENNIS: 04/26/19 00:[address]: Ruddy Humphries DEPT: SURGICAL PATHOLOGY RECD BY: Destini Win ENTERED: 04/26/19 13:09 SP TYPE: AX NODE BX OTHR DR: MD Dr. Renetta Urrutia MD Tissues: A - Axillary lymph node, NOS B - Right breast, NOS Procedures: Frozen Section (charge) Surgery Specimen Level IV Surgery Specimen Level HEADER OPERATION: Mastectomy with sentinel lymph node biopsy, radiotracer PRE-OP DIAGNOSIS: Right breast invasive ductal carcinoma TISSUE SUBMITTED: A - [place] lymph node right breast sent for FS, B - Right breast FROZEN SECTION DIAGNOSIS A. Right axillary sentinel lymph nodes, biopsy: Two out of two lymph nodes negative for carcinoma. AM:westley 04/26/19 MICROSCOPIC DIAGNOSIS A. Right axillary sentinel lymph nodes, biopsy: Two out of two lymph nodes negative for carcinoma B. Right breast, lumpectomy: Invasive ductal carcinoma See cancer check list below AM:keron 05/02/19 COMMENT BREAST CANCER SUMMARY: Procedure: Mastectomy Specimen: Type: Total breast Size: 26 x 19 x 5.6 cm Laterality: Right breast Invasive tumor: Size: 2 x 2 x 1 mm Focality: Single focus of invasive tumor Histologic type: Invasive ductal carcinoma Histologic Grade (Santiago grade): Glandular/tubular differentiation score - 2 Nuclear pleomorphism score - 2 Mitotic count score - 1 Overall grade - 1 (score of 5) Lymph-vascular invasion: not identified Ductal carcinoma Insitu: Not identified Lobular carcinoma Insitu: Not present Tumor extension: Skin: Free of invasive and insitu carcinoma Nipple: Paget's disease present Skeletal muscle: Not applicable Margins involved by Invasive Carcinoma: None. Distance from closets margin: 10 mm from posterior margin Lymph nodes: Number of sentinel lymph nodes examined: 2 Total number of lymph nodes examined: 2 No evidence of macrometastases, micrometastases or isolated tumor cells See specimen A Microcalcification: Present in non-neoplastic tissue Treatment effect: Unknown Additional Pathologic Findings: Biopsy cavity focal intra ductal hyperplasia without atypia Ancillary studies: Previously performed on same tumor ([id number] and [id number]) ER : 0% OH : 0% Her2 :3+ (IHC) Ki67: low Clinical History: Mass of right breast PATHOLOGIC STAGE: pT1a N0 Mx Case has been reviewed in consultation with Dr. Mcpherson who concurs with the above diagnosis. IDC:SJ The above summary is in compliance with [employer] [place] [employer] (CAP) Cancer Protocols Checklist and [place] Joint Committee on Cancer (AJCC), Staging Manual, 7th Ed. MICROSCOPIC DESCRIPTION Slides are reviewed. GROSS DESCRIPTION A - Received fresh for frozen section consultation labeled with the patient's name is a specimen designated sentinel lymph node, right. The specimen consists of an irregular fragment of yellow fatty tissue measuring 4 x 3 x 2 cm. Dissection reveals two nodules ranging in size from 1.2 to 3 cm in greatest dimension. The nodules are submitted in their entirety for frozen section consultation in three blocks. / AM:rg 04/26/19 B - Received in fixative is one container labeled with the patient's name and designated right breast. The specimen consists of a mastectomy specimen measuring 26 x 19 x 6.5 cm and weighing 734 gm. The anterior surface contains grossly unremarkable skin containing centrally located nipple and areola. The skin fragment measures 15.3 x 7.8 cm. The specimen is differentially inked as follows: posterior - black, superior - blue, inferior - green. Serial sections reveal a blood-filled biopsy cavity measuring 8.5 x 3.2 x 3 cm. The biopsy cavity is located 1 cm from its closest (posterior) margin of excision. The remainder of the breast parenchyma is velasco-yellow with occasional fatty streaks. No distinct mass lesion is identified. The specimen is left for additional overnight fixation. / AM: 04/26/19 Pl Sql Developer sections are submitted in 12 cassettes as follows: 1 - nipple, 2 - perpendicular posterior margin, 3 - perpendicular superior margin, 4 - perpendicular inferior margin, 5 - perpendicular medial margin, 6 - perpendicular lateral margin, 7-9 - blood filled biopsy cavity, 10-12 - event representative sections of uninvolved breast parenchyma adjacent to and away from biopsy cavity. Cassettes are submitted after additional fixation. / AM: 04/27/19 TC: 0 CPT: 05522 x2, 87606, 64956 x2
--- NOTE | 2019-04-26 08:30 | NM_ITS ---
PROCEDURE: NUCLEAR MEDICINE Injection [place] Node - RIGHT breast(s). REASON FOR EXAM: Female, 83 years old. Right breast cancer. TECHNIQUE: [place] node localization using radionuclide methods of the RIGHT breast(s) was performed following subcutaneous administration of 1.2 mCi of of sulfur colloid Tc-99m. FINDINGS: 1.2 mCi of technetium labeled sulfur colloid was injected subcutaneously in 4 equal aliquots in the inferior slightly medial aspect of the breast. NM/Lymph Node Injection Only IMPRESSION: 1.2 mCi of technetium labeled sulfur colloid was injected subcutaneously for [place] node imaging. Electronically Signed: Abel Mcmahon, at 9:47 EST , Service support ,
[2019-04-26] MEDS: Lactated Ringers 1,000 ML 100 ML IV (08:46)
[2019-04-26 09:05] LABS: Bedside Glucose 143 mg/dL (70-110)
--- NOTE | 2019-04-26 10:10 | PCM.HP.BLA ---
History and Physical Date of Admission: 04/26/19 [facility] [address] [place] [address] OFFICE VISIT Date of Service: 04/11/19 MR#: [id number] Acct: [id number] Name: LAKEISHA SHIRLEY Rep #: [id number] : 1935 Provider: Ruddy Humphries MD Age/Sex: 83/F Location: [facility] Status: Signed Intake Vital Signs 04/11/19 Body Mass Index (BMI) 24.3 04/11/19 Height 5 ft 4.5 in 04/11/19 Weight: 147 lb 04/11/19 Body Mass Index (BMI) 24.8 04/11/19 Blood Pressure 143/73 H 04/11/19 Blood Pressure Location Rt brachial 04/11/19 Blood Pressure Position Sitting 04/11/19 Respiratory Rate 18 04/11/19 Pulse Rate 70 04/11/19 Pulse Source Monitor 04/11/19 Temperature 97.5 F L 04/11/19 Temperature Source Oral 04/11/19 Pulse Ox 97 04/11/19 Oxygen Delivery Method room air Intake Visit Reasons: F/U R Breast BX Chief Complaint: F/U right breast biopsy Chemical Detection Expert Required: No Is patient in pain?: No Allergies cortisone Allergy (Verified 04/11/19 09:19) Hives erythromycin base Allergy (Verified 04/11/19 09:19) Swelling Medications aspirin 81 mg tablet,delayed release PO 07/29/17 [History Confirmed 04/11/19] trazodone 50 mg tablet 25 mg PO QHS PRN #60 tab 11/27/17 [Rx Confirmed 04/11/19] sitagliptin 100 mg tablet 100 mg PO DAILY #90 tab 06/11/18 [Rx Confirmed 04/11/19] levothyroxine 75 mcg tablet 75 mcg PO QDAY #90 tab 07/07/18 [Rx Confirmed 04/11/19] blood sugar diagnostic strips See Dose Instructions .ROUTE .MEDSUPPLY #50 ea 08/30/18 [Rx Confirmed 04/11/19] metformin 500 mg tablet 1,000 mg PO BID 90 Days #360 tab 10/05/18 [Rx Confirmed 04/11/19] metoprolol tartrate 50 mg tablet 50 mg PO BID tab 10/05/18 [History Confirmed 04/11/19] rosuvastatin 40 mg tablet 40 mg PO QDAY #90 tab 10/12/18 [Rx Confirmed 04/11/19] citalopram 10 mg tablet 10 mg PO DAILY #90 tab 04/05/19 [Rx Confirmed 04/11/19] losartan 50 mg tablet 25 mg PO QDAY #90 tab 04/05/19 [Rx Confirmed 04/11/19] [facility] Medical History Paroxysmal atrial fibrillation (Chronic) Atherosclerosis of coronary artery of [place] heart without angina 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) Diabetes type 2, uncontrolled (Chronic) Tremor (Chronic) Syncope (Chronic) IBS (irritable bowel syndrome) (Chronic) GERD (gastroesophageal reflux disease) (Chronic) Hypothyroidism (Chronic) Hyperlipemia (Chronic) Hypertension (Chronic) Breast cancer (Acute) History of hysterectomy (Chronic) Surgical History History of mitral valve replacement with bioprosthetic valve (Chronic 11/23/09) 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) history right stereotactic biopsy (Acute ~04/05/19) History of carpal tunnel release (Chronic) History of knee surgery (Chronic) Family History Mother Heart disease Myocardial infarction Father Tuberculosis Brother Diabetes Sister Heart disease Social History (Updated 04/11/19 @ 12:23 by Ruddy Humphries MD) Smoking Status: Never smoker alcohol intake: never substance use type: does not use what type of physical activity do you participate in: none HPI HPI HPI: LAKEISHA SHIRLEY, is a 83 F who presents to the office today for HPI HPI Surgical H&P: Yes HPI: LAKEISHA SHIRLEY, is a 83 F who presents to the office today for A stereotactic breast biopsy on her right breast. This was completed on 04/05/2019. 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 The pathology report also was ER and WA negative and HER-2/akbar 3+. She has complained of some significant bruising in the lower aspect of her breast. ROS General General: No weight change, appetite, fatigue, colon cancer, breast cancer or weakness HEENT HEENT: No difficulty swallowing, eye injury, eye surgery, swollen glands or hoarseness Endo Endocrine: Yes thyroid disease and diabetes mellitus; no thyroid cancer, Hair loss, heat intolerance or cold intolerance Breast Breast: Yes nipple discharge and abnormal mammogram; no left breast lump, right breast lump, breast pain, abnormal US or breast enlargement Cardio Cardiovascular: Yes heart disease, atrial fibrillation and high blood pressure; no murmur, pacemaker, heart attack, heart stent, palpitations, shortness of breat with exertion or chest pain Additional Details: CABG, CAD, Mitral valve replacement Resp Respiratory: No shortness of breath, No sleep apnea, No cough, No COPD, No asthma, No emphysema, No wheezing Gastro Gastrointestinal: No abdominal pain, No nausea or vomiting, Yes diarrhea, No constipation, No blood in stool, Yes acid reflux, No hemorrhoids, No ulcers, No gallbladder problem, No black,tarry stools Neuro Neurologic: No weakness Exam Const General: no acute distress, well developed, well hydrated Orientation: oriented to person, oriented to place, oriented to time [facility] Head: normocephalic, atraumatic Ears: external ears normal Mouth: moist mucous membranes Eyes Sclera: sclerae normal Pupils: normal by confrontation Neck Neck: no lymphadenopathy noted Neck mass: No Thyroid: thyroid normal, symmetrical Chest Chest palpation & inspection: normal inspection of the chest Breast inspection: normal inspection of the breasts Breast Palpation: Yes nipple discharge Other: Palpation of the right breast reveals Significant bruising on the inferior aspect of the breast. There is no signs of any cellulitis.. Palpation of the left breast reveals Negative. Axillary exam demonstrates no suspicious masses in either the left or right axilla. Resp Effort & Inspection: normal respiratory effort Auscultation: clear to auscultation bilaterally Percussion: percussion normal Cardio Rate: regular rate Rhythm: regular rhythm Heart Sounds: no murmurs GI Palpation: soft, no hepatosplenomegaly, no masses, nontender Rectal Exam: other Other: Rectal exam deferred. Extrem General: normal to inspection, no clubbing, cyanosis or edema Assessment & Plan Problems 1. 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 Options are the following: lumpectomy followed by radiation therapy vs. mastectomy vs. mastectomy followed by immediate reconstruction. I have described the procedures to the patient. I have described the advantages and disadvantages of the options, but I have told the patient that among the options, the survival rate for breast cancer is the same. I have told the patient that with all the surgeries that a sentinel lymph node biopsy is required. I have described the procedure of sentinel lymph node biopsy to the patient. I have told the patient that if the biopsy is positive for metastatic disease, then a full axillary lymph node dissection is required. I have told the patient that adjuvant chemotherapy will be required should the lymph nodes reveal metastatic disease. Also, a full lymph node dissection will increase the risk for lymphedema, especially if there are 4 or more lymph nodes positive for metastatic disease and radiation to the axilla is also required. I have told the patient the risks of surgery, including but not limited to: infection, bleeding, scar tissue, seroma and persistent seroma, lymph leak, injury to any blood vessels, injury to any nerves (particularly the long thoracic, the thoracodorsal, and the second intercostal brachial and the resultant sequelae), lymphedema, cosmetic deformity, dysesthesias, wound infections, further surgery (especially if margins are not clear), complications of anesthesia, etc. the patient understands. The patient will think about the options and discuss it further with the family. The patient will contact me in the next few days when she decides what the patient wishes to do. I have answered all the patient?s questions at this point to her satisfaction and she has no further questions. The patient has elected to undergo a right-sided mastectomy with sentinel lymph node biopsies Coding Level of Care Code Off vis,est,level 3 Diagnoses Malignant neoplasm of lower-outer quadrant of right breast of female, estrogen receptor negative C50.511; Z17.1 ??Breast location: lower outer quadrant of breast ??Estrogen receptor status: negative ??Laterality: right 04/11/19 1224 <Electronically signed by Ruddy Humphries MD> Date Ruddy Godwin Signature: Date (if applicable) CC: Renetta Barr MD ~ I have re-examined the patient. There are no clinical changes since date of exam.
[2019-04-26] MEDS: Cefazolin 2 GM in 0.9% Normal Saline 100 ML IV (10:50)
[2019-04-26] MEDS: Isosulfan Blue 1% 5 ML Vial (10:55)
--- NOTE | 2019-04-26 11:47 | OP.PCM_ITS ---
Problem List (1) Malignant neoplasm of lower-outer quadrant of right female breast Status: Acute Qualifiers: Estrogen receptor status: negative Qualified Code(s): C50.511 - Malignant neoplasm of lower-outer quadrant of right female breast; Z17.1 - Estrogen receptor negative status [ER-] Report of Operation Date of Procedure: 04/26/19 Pre-Operative Diagnosis: Invasive ductal cancer or lower inner quadrant of right breast Post-Operative Diagnosis: Same Surgery/Procedure Performed:: 1. Injection of 5 cc of Lymphazurin blue. 2. Right-sided simple mastectomy. 3. Right-sided sentinel lymph node biopsy Type of Anesthesia:: General Anesthesiologist: Oc Londono Specimen's removed: 1. Right breast. 2. Right sentinel lymph nodes Drains: 15 round Anupam-Amado Estimated Blood Loss (mL): < 25 CC Description of Procedure: She was brought into the operating room. Placed in the supine position. Under excellent general anesthetic the right breast was cleaned with alcohol and injected with 5 cc of Lymphazurin blue circumareolar Gadiel. The breast was then sterilely prepped and draped in usual fashion. Elliptical incision was made around the nipple areolar complex. Dawson retractors were used in elliptical flaps were created going superiorly toward the clavicle inferiorly to the rectus abdominis muscle medially to the sternum and then laterally out to the latissimus dorsi muscle. I took the breast off of the pectoralis fascia with the plasma blade I had good hemostasis. I came to the clavipectoral fascia entered the clavipectoral fascia identified a grouping of blue lymph nodes the neoprobe lit up to 300 and I remove these lymph nodes with a harmonic dissector and sent it to pathology for frozen section. I remove the breast laterally off the latissimus dorsi muscle and sent it to pathology for permanent sectioning. I irrigated the cavity removing all extraneous small fat. I used the plasma blade for good hemostasis. I placed a 15 round Anupam-Amado drain from the me dial incision suturing it to the skin with a 3-0 nylon. Skin was brought together with deep dermal stitches of 3-0 Vicryl then a running 4-0 Monocryl Steri-Strips were applied sterile dressings were applied and the patient tolerated the procedure well. Frozen section came back as - Admit VTE Documentation VTE Present on Admission: No VTE Mechan Device Prophylaxis: SCD's VTE Pharm Prophylaxis ordered?: No Reason prophylaxis not ordered:: Treatment Not Indicated
[2019-04-26] MEDS: Bupivacaine 0.5% PF 10 ML VIAL (12:02)
[2019-04-26 13:06] LABS: Bedside Glucose 279 mg/dL (70-110)
[2019-04-26] MEDS: Lactated Ringers 1,000 ML 75 ML IV (14:30)
[2019-04-26] MEDS: metFORMIN HCl 1,000 MG Tablet 1000 MG PO (16:34)
[2019-04-26] MEDS: Cefazolin 1 GM/50 ML BAG IV (18:21)
[2019-04-26] MEDS: Ondansetron 4 MG/2 ML Vial IV (18:23)
[2019-04-26] MEDS: Atorvastatin Calcium 80 MG Tablet PO (20:45)
[2019-04-27 00:30] VITALS: BP 94/40; PULSE 72; RESP 16; TEMP 36.6; O2SAT 94
[2019-04-27] MEDS: Cefazolin 1 GM/50 ML BAG IV (03:15)
[2019-04-27] MEDS: Lactated Ringers 1,000 ML 75 ML IV (03:25)
[2019-04-27] MEDS: Levothyroxine 50 MCG Tablet PO (05:01)
[2019-04-27 05:37] VITALS: BP 94/48; PULSE 82; RESP 16; TEMP 37.2; O2SAT 97
--- NOTE | 2019-04-27 08:56 | NURSING ---
Pt is s/p right mastectomy. changed dressing and cleaned around the drain site with peroxide. applied a new split gauze dressing. discussed local support group and well as boutiques in [facility]. Pt states she plans to go get fitted for a prosthetic in the future. pt denies further needs at this time.
--- NOTE | 2019-04-27 09:49 | CASEMGMT ---
LW/POA forms in [facility], Kristofer Nagel is listed at POA, and Kristofer aNgel as the alternate. SW printed forms to be placed in paper chart, so they can be scanned into the summary tab of the [facility]. EDWAR Cummings
[2019-04-27 09:56] VITALS: BP 105/41; PULSE 88; RESP 18; TEMP 36.3; O2SAT 98
[2019-04-27 10:05] VITALS: PULSE 88
[2019-04-27] MEDS: Citalopram 10 MG Tablet PO (10:05)
[2019-04-27] MEDS: Metoprolol Tartrate 50 MG Tablet PO (10:05)
[2019-04-27] MEDS: metFORMIN HCl 1,000 MG Tablet 1000 MG PO (10:06)
[2019-04-27] MEDS: LINAGLIPTIN 5 MG TABLET PO (10:06)
--- NOTE | 2019-04-27 10:38 | PN.SURG_ITS ---
Patient Problems: Active and Suspected Problems (Last Reviewed 04/11/19 @ 12:20 by Ruddy Humphries MD) Malignant neoplasm of lower-outer quadrant of right female breast (Acute) Subjective: Patient evaluated resting comfortably in bed. She denies incisional discomfort, nausea, vomiting. - Physical Exam Vitals/I&O's: Vital Signs Temp Pulse Resp BP Pulse Ox 97.4 F L 88 18 105/41 L 98 04/27/19 09:56 04/27/19 10:05 04/27/19 09:56 04/27/19 09:56 04/27/19 09:56 Oxygen Flow Rate (L/min) 2 Oxygen Delivery Method Room Air Weight: 148 lb 0.011 oz Body Mass Index (BMI) 25.0 Intake and Output for Last 24 Hours 04/25/19 04/26/19 04/27/19 23:59 23:59 23:59 Intake Total 1432.08 / 1632.08 1203.75 / 1203.75 Output Total 558 / 883 565 / 565 Balance 874.08 / 749.08 638.75 / 638.75 General: Alert, Oriented x3, Cooperative Skin: - - Right chest- incision c/d/i. No erythema or infection noted. HEDY drain intact with bloody drainage noted. Laboratory Results 04/26/19 12:56: POC Glucose 279 H Current Medications Atorvastatin Calcium (Lipitor) 80 mg PO QHS [facility] Last Admin: 04/26/19 20:45 Dose: 80 mg Documented by: Citalopram Hydrobromide (Celexa) 10 mg PO DAILY [facility] Last Admin: 04/27/19 10:05 Dose: 10 mg Documented by: Hydromorphone HCl (Dilaudid Inj) 0.5 - 1 mg IV Q2H PRN PRN PRN Reason: Pain Score 1-10/10 Cefazolin Sodium () 1 gm in 50 mls @ 100 mls/hr IV Q8H [facility] Last Infusion: 04/27/19 04:48 Dose: Infused Documented by: Sodium Chloride () 250 mls @ 15 mls/hr IV .[id number] PRN PRN Reason: Saline Flush Lactated Ringer's () 1,000 mls @ 75 mls/hr IV .[id number] [facility] Last Infusion: 04/27/19 04:48 Dose: 75 mls/hr Documented by: Levothyroxine Sodium (Synthroid) 50 mcg PO DAILY@0600 [facility] Last Admin: 04/27/19 05:01 Dose: 50 mcg Documented by: Linagliptin (Tradjenta) 5 mg PO DAILY [facility] Last Admin: 04/27/19 10:06 Dose: 5 mg Documented by: Losartan Potassium (Cozaar) 25 mg PO DAILY [facility] Last Admin: 04/27/19 10:01 Dose: Not Given Documented by: [facility] Last Admin: 04/27/19 10:06 Dose: 1,000 mg Documented by: Metoprolol Tartrate (Lopressor (Beta Ashwini)) 50 mg PO BID [facility] Last Admin: 04/27/19 10:05 Dose: 50 mg Documented by: Ondansetron HCl (Zofran) 4 mg IV Q8H PRN PRN PRN Reason: NAUSEA Last Admin: 04/26/19 18:23 Dose: 4 mg Documented by: Oxycodone HCl (Oxyir) 5 - 10 mg PO Q4H PRN PRN PRN Reason: Pain Score 6-10/10 Sodium Chloride () 10 - 40 ml IV UD PRN PRN Reason: SALINE FLUSH Trazodone HCl (Desyrel) 12.5 mg PO QHS PRN PRN Reason: insomnia Medical Necessity - Tobacco Use Smoking Status: Never smoker Tobacco Use: Non-smoker Assessment/Plan All Active Problems (Last Reviewed 04/11/19 @ 12:20 by Ruddy Humphries MD) Malignant neoplasm of lower-outer quadrant of right female breast (Acute) Microcalcification of right breast on mammogram (Acute) Change in bowel habit (Acute) I am following this patient in conjunction with Dr. Humphries S/p right mastectomy with sentinel lymph node biopsy Ready for discharge
--- NOTE | 2019-04-27 10:46 | PCM.DC.BS ---
Discharge Diet: No Restrictions Discharge Activity: May Not Drive - for 5 days or while taking narcotic pain meds. May shower in (days): 1 Lifting Restrictions: 10 pounds for 1 week. Call your doctor if your incision/area has: Continuous Slow Oozing, Sudden Increased Bleeding Call your doctor if you observe: Fever of 101 or Higher Suture Line Care: Avoid Pulling/Pushing, Avoid Pinching/Bending Cleanse incision/area with: Soap & Water Additional Dressing/Incision Instructions:: Remove bulky dressing tomorrow. May leave any opsite dressing for 3-4 days. Keep dressing in place until your follow-up appointment. Allergies/Adverse Reactions: Allergies cortisone Allergy (Verified 04/26/19 08:21) Hives erythromycin base Allergy (Verified 04/26/19 08:21) Swelling Medications to take at Discharge aspirin 81 mg tablet,delayed release 81 mg PO DAILY 07/29/17 blood sugar diagnostic strips See Dose Instructions .ROUTE .MEDSUPPLY #50 ea 08/30/18 metoprolol tartrate 50 mg tablet 50 mg PO BID tab 10/05/18 Citalopram Hydrobromide [Citalopram HBr] 10 mg PO DAILY 04/15/19 Levothyroxine Sodium 50 mcg PO QDAY 04/15/19 Losartan Potassium [Cozaar] 25 mg PO QDAY 04/15/19 Metformin HCl [Glucophage] 1,000 mg PO BID 04/15/19 Rosuvastatin Calcium 40 mg PO QHS 04/15/19 Sitagliptin Phosphate [Januvia] 100 mg PO DAILY 04/15/19 Trazodone HCl 12.5 mg PO QHS PRN 04/15/19 Orders to be completed after discharge: 12 Lead EKG [CVS] Time Frame: 04/15/19, Facility: [facility], Location: Cardiovascular Services Basic Metabolic Profile (BMP) Time Frame: 04/15/19, Facility: [facility], Location: Laboratory CBC-Complete Blood Cnt No Diff Time Frame: 04/15/19, Facility: [facility], Location: Laboratory Hemoglobin A1c Time Frame: 04/15/19, Facility: [facility], Location: Laboratory Thyroid Stim Hormone (TSH) Time Frame: 04/15/19, Facility: [facility], Location: Laboratory Primary Care Physician: Renetta Barr MD [Primary Care Provider] - Please Follow Up With: Ruddy Humphries MD - [phone] When: 5 days, Wednesday 05/02 Proposed Discharge Date: 04/27/19
--- NOTE | 2019-04-27 10:50 | CASEMGMT ---
SW met w/pt and and room, offered support given new cancer diagnosis. SW remains available for any supportive needs. EDWAR Cummings
--- NOTE | 2019-04-27 13:31 | CASEMGMT ---
RN CM Assessment Presentation: Mastectomy Intro role of CM and purpose of RN CM assessment to patient and her in room. Demographics, PCP and Pharmacy verified. Pt and state they are able to manage at home. states he can empty drains, and pt's dressing is to remain intact until office visit. RN CM reviewed if difficulties or questions arise, to call to surgeon office and request to speak with nurse re: needs. No further questions. PCP: Dr. Barr Specialists: Dr. Humphries Preferred Pharmacy: [facility] Insurance: [employer] Prescription Benefit: yes LNOK: Living Arrangements: Lives independently in home with . No DME Transportation: drives, and can drive DME: none HHC: none Patient DC goals: Home DC PLAN: Home Ivet MCNEIL RN ACM
== END 2019-04-27 11:39 | disposition home or self-care (01) ==
LOC: SDC 16:38 → MS3 16:38
PROVIDERS: Admitting Provider Surgery; Family Provider Internal Medicine; PCP Internal Medicine; Referring Provider Surgery; Visit Provider Surgery
PROC: (CPT 19307; principal; 2019-04-26 10:45)
DX: C50.511 Malignant neoplasm of lower-outer quadrant of right female breast (principal); Z17.1 Estrogen receptor negative status [ER-]; I25.10 Atherosclerotic heart disease of native coronary artery without angina pectoris; I48.20 Chronic atrial fibrillation, unspecified; I48.0 Paroxysmal atrial fibrillation; K21.9 Gastro-esophageal reflux disease without esophagitis; E11.65 Type 2 diabetes mellitus with hyperglycemia; K58.9 Irritable bowel syndrome, unspecified; E03.9 Hypothyroidism, unspecified; I10 Essential (primary) hypertension; E78.5 Hyperlipidemia, unspecified; Z95.2 Presence of prosthetic heart valve; Z79.899 Other long term (current) drug therapy; Z79.84 Long term (current) use of oral hypoglycemic drugs; Z79.82 Long term (current) use of aspirin
CPT/HCPCS: 00400; 19303; 38525; 36415; 38792; 80048; 82962; 83036; 84443; 85027; 88305; 88309; 88331; 88341; 88342; 93005; 94762; 96361; 96365; 96366; 96375; 99218; 99251; J7120; A4216; G0378; G0379; G0463; J2405; Q9968

== ENCOUNTER → 2019-06-28 10:06 | Outpatient (CLI) | payer MEDICARE, SELFPAY ==
[2019-06-28 09:21] VITALS: BMI 23.2
[2019-06-28 13:01] LABS: Thyroid Stim Hormone (TSH) 3.53 uIU/mL (0.358-3.74)
== END ==
PROVIDERS: PCP Internal Medicine; Referring Provider Internal Medicine; Visit Provider Internal Medicine
DX: E03.9 Hypothyroidism, unspecified (principal)
CPT/HCPCS: 36415; 84443

== ENCOUNTER → 2019-07-08 07:40 | Outpatient (CLI) | payer MEDICARE, SELFPAY ==
[2019-06-28 09:21] VITALS: BMI 23.2
--- NOTE | 2019-07-08 07:41 | ECHOD_ITS ---
Reason For Study: S/P CABG Procedure This was a 2D Doppler, Color Flow transthoracic echocardiogram. Exam performed in department. Left Ventricle Mild concentric left ventricular hypertrophy. The estimated ejection fraction is 65 %. No regional wall motion abnormalities noted. Right Ventricle Normal size and thickness. Normal systolic function. Atria Normal left atrium. Normal right atrium. Normal atrial septum. Mitral Valve Peak transmitral valve gradient 10 mmHg. Mean transmitral valve gradient 4 mmHg. Stable appearing bioprosthetic mitral valve apparatus. Tricuspid Valve Normal tricuspid valve. Mild (1+) tricuspid valve insufficiency. Right ventricular systolic pressure estimated to be 31 mmHg. Aortic Valve Trisinus/trileaflet aortic valve. Aortic sclerosis, no stenosis. Pulmonic Valve Normal pulmonic valve. Mild (1+) pulmonic valve insufficiency. Great Vessels Calcified aortic root. Normal arch. Mild atherosclerosis of the aortic arch. Normal inferior vena cava. Inferior vena cava collapse with sniff. Pericardium/Pleural No pericardial effusion. MMode/2D Measurements & Calculations LVIDd: 4.2 cm IVSd: 1.1 cm Ao root diam: 2.9 cm LVIDs: 2.5 cm LVPWd: 0.74 cm ACS: 1.4 cm RVDd: 3.4 cm FS: 42.2 % LAV(MOD-bp): 55.7 ml LA A4 area: 17.6 cm2 LA dimension(2D): 4.2 cm LAV(MOD-bp) Indexed: 31.1 ml/m2 LAV(MOD-sp2): 64.8 ml LAV(MOD-sp4): 46.3 ml RA A4 area: 10.8 cm2 Time Measurements MV dec time: 0.23 sec Doppler Measurements & Calculations MV E max luther: 143.4 cm/sec Lat Peak E' Luther: 8.9 cm/sec Med Peak E' Luther: 4.2 cm/sec MV A max luther: 107.6 cm/sec E/E' lat: 16.0 E/E' med: 34.4 MV E/A: 1.3 MV V2 max: 160.5 cm/sec MV P1/2t max luther: 155.6 cm/sec Ao V2 max: 159.2 cm/sec MV max P.3 mmHg MV P1/2t: 76.8 msec Ao max P.1 mmHg MV V2 mean: 86.5 cm/sec MV dec slope: 593.6 cm/sec2 Ao V2 mean: 121.8 cm/sec MV mean P.5 mmHg Ao mean P.3 mmHg MV V2 VTI: 47.2 cm MVA(P1/2t): 2.9 cm2 Ao V2 VTI: 41.2 cm LV V1 max: 129.3 cm/sec PA V2 max: 76.0 cm/sec TR max luther: 254.1 cm/sec LV V1 max P.7 mmHg TR max P.8 mmHg LV V1 mean P.3 mmHg LV V1 mean: 101.5 cm/sec LV V1 VTI: 34.1 cm Interpretation Summary Mild concentric left ventricular hypertrophy. The estimated ejection fraction is 65 %. Stable appearing and normal functioning bioprosthetic mitral valve apparatus. Mild (1+) tricuspid valve insufficiency. Right ventricular systolic pressure estimated to be 31 mmHg. Compared to echo report dated 06/22/2018, no appreciable changes noted. Ordering Physician: Ruddy Lewis Referring Physician: Renetta Barr Performed By: Awa Phan, MICHAEL, RVT
== END ==
PROVIDERS: PCP Internal Medicine; Referring Provider Internal Medicine Cardiovascular Disease; Visit Provider Internal Medicine Cardiovascular Disease
DX: Z95.3 Presence of xenogenic heart valve (principal)
CPT/HCPCS: 93306

== ENCOUNTER → 2019-07-14 10:10 | Outpatient (CLI) | payer MEDICARE, SELFPAY ==
[2019-06-28 09:21] VITALS: BMI 23.2
--- NOTE | 2019-07-14 10:11 | STE_ITS ---
Reason For Study: Chest Pain; CAD Stress Results Protocol: Lyle Protocol Maximum Predicted HR: 139 bpm Target HR: 118 bpm % Maximum Predicted HR: 83 % DurationHeart Rate Stage (mm:ss) (bpm) BP Comment Baseline 71 136/64No Chest Pain Lyle Protocol Stage I 3:00 107 138/70No Chest Pain; Mild Dyspnea Lyle Protocol Stage II 2:30 116 138/62No Chest Pain; Moderate Dyspnea Recovery 80 120/64No Chest Pain Stress Duration: 5:30 mm:ss Maximum Stress HR: 116 bpm METS: 7 Baseline Echocardiogram Findings The estimated ejection fraction is 65 %. Stress Echo Wall motion Data Resting WM Intermediate WM Stress WM Resting Wall Motion Wall Motion Stress No regional wall motion No regional wall motion abnormalities noted. abnormalities noted. EKG Data The baseline ECG displays normal sinus rhythm. The patient exercised according to the regular Lyle protocol for a total duration of 5:30. The maximum heart rate attained was 129 beats per minute. This was 92% of maximum predicted heart rate. The patient exercised into stage 2 of the Lyle protocol. During stress, there were no ST or T wave changes noted to suggest ischemia. No clinical angina was noted. No arrhythmias noted. Interpretation Summary The estimated ejection fraction is 65 %. Normal, adequate, treadmill echocardiogram. Negative for ischemia by EKG and echocardiographic criteria. No anginal symptoms noted. No arrhythmias noted. Average exercise capacity for age. Normal blood pressure response to exercise. Test terminated due to dyspnea. Final LVEF is 75%. Patient tolerated procedure well. No complications. Ordering Physician: Ruddy Lewis Referring Physician: Renetta Barr Performed By: Vincent Hoover RCS
== END ==
PROVIDERS: PCP Internal Medicine; Referring Provider Internal Medicine Cardiovascular Disease; Visit Provider Internal Medicine Cardiovascular Disease
DX: R07.9 Chest pain, unspecified (principal); I25.10 Atherosclerotic heart disease of native coronary artery without angina pectoris
CPT/HCPCS: 93017; 93350

== ENCOUNTER → 2019-07-20 07:38 | Outpatient (CLI) | payer MEDICARE, SELFPAY ==
[2019-06-28 09:21] VITALS: BMI 23.2
[2019-07-20 08:51] LABS: AST(SGOT) 13 U/L (15-37); Alanine Aminotransfer ALT/SGPT 21 U/L (13-56); Albumin, Serum 3.8 g/dL (3.2-5.0); Alkaline Phosphatase 66 U/L (45-117); Bilirubin, Direct 0.15 mg/dL (0.00-0.30); Cholesterol 117 mg/dL (200); Globulin 4.1 g/dL (2.2-4.2); High Density Lipoprotein 38 mg/dL; Protein, Total 7.9 g/dL (6.4-8.2); Triglycerides 138 mg/dL; Very Low Density Lipoprotein 28 mg/dL (5-40)
== END ==
PROVIDERS: PCP Internal Medicine; Referring Provider Internal Medicine Cardiovascular Disease; Visit Provider Internal Medicine Cardiovascular Disease
DX: E78.00 Pure hypercholesterolemia, unspecified (principal); E78.5 Hyperlipidemia, unspecified
CPT/HCPCS: 36415; 80061; 80076

== ENCOUNTER → 2019-10-28 08:18 | Outpatient (CLI) | payer MEDICARE, SELFPAY ==
[2019-05-10 09:37] VITALS: BMI 23.9
[2019-10-24 09:39] VITALS: BMI 25.0
--- NOTE | 2019-10-28 08:35 | BI_ITS ---
MAMMOGRAPHY - UNILATERAL SCREENING: LEFT BREAST REASON FOR EXAM: Female, 83 years old. Routine annual screening examination (unilateral). PERTINENT HISTORY: Personal history of breast cancer. Prior right mastectomy. Prior left excisional breast biopsy. TECHNIQUE: Digital unilateral breast ariela (3D mammographic acquisition) in the CC and MLO projections. 2-D mediolateral oblique (MLO) and craniocaudad (CC) views of both breasts were obtained. CAD: Full Field Digital Mammography with Computer Added Detection was performed. COMPARISON: Comparison is made with prior study dated March 22, 2019. FINDINGS: Breast Composition: There are scattered areas of fibroglandular density. There are no dominant masses or suspicious calcifications. Stable vascular calcification in the left breast. No other significant abnormalities are identified. There has been no significant change since the prior study. BI/SCREEN MAMM (CAD) W/ARIELA UNI L IMPRESSION: Status post right mastectomy. Yearly follow-up mammogram recommended. (A) ASSESSMENT CATEGORY: BIRADS Category 2: Benign. A letter regarding these results will be sent to the patient by the facility within 30 days. Approximately 10% of breast cancers are not detected by mammography. A normal mammogram should not delay biopsy of a clinically suspicious abnormality. [id number] Electronically Signed: Abel Mcmahon, at 9:35 EDT , Service support ,
== END ==
PROVIDERS: Family Provider Internal Medicine; PCP Internal Medicine; Referring Provider Internal Medicine Medical Oncology; Visit Provider Internal Medicine Medical Oncology
DX: Z12.31 Encounter for screening mammogram for malignant neoplasm of breast (principal); Z85.3 Personal history of malignant neoplasm of breast
CPT/HCPCS: 77063; 77067

== ENCOUNTER → 2019-10-31 | Outpatient (CLI) | payer MEDICARE, SELFPAY ==
[2019-10-24 09:39] VITALS: BMI 25.0
--- NOTE | 2019-10-31 07:56 | CDU_ITS ---
Reason For Study: VERTIGO Rt. Velocities/BP Lt. Velocities/BP Prox CCA 73/16 cm/sec. Prox CCA 110/21 cm/sec. Mid CCA 80/16 cm/sec. Mid CCA 112/20 cm/sec. Dist CCA 84/15 cm/sec. Dist CCA 100/20 cm/sec. Prox ICA 100/18 cm/sec. Prox ICA 69/18 cm/sec. Mid ICA 168/40 cm/sec. Mid ICA 111/33 cm/sec. Dist ICA 125/26 cm/sec. Dist ICA 113/29 cm/sec. Rt. ICA/CCA = 2.2. Lt. ICA/CCA = 1.0. Prox ECA 52/0 cm/sec. Prox ECA 100/7 cm/sec. Rt. Vert. 84/18 cm/sec. Lt. Vert. 58/9 cm/sec. Right Extracranial There is homogeneous, smooth atherosclerotic plaque noted in the right common carotid artery. There is heterogeneous, irregular atherosclerotic plaque noted in the right internal carotid artery. There is heterogeneous, irregular atherosclerotic plaque noted in the right external carotid artery. Antegrade flow is noted in the right vertebral artery. There is heterogeneous, irregular atherosclerotic plaque noted in the right bulb. Left Extracranial There is homogeneous, smooth atherosclerotic plaque noted in the left common carotid artery. There is heterogeneous, irregular atherosclerotic plaque noted in the left internal carotid artery. There is homogeneous, smooth atherosclerotic plaque noted in the left external carotid artery. Antegrade flow is noted in the left vertebral artery. Procedure Carotid Duplex [id number]. Exam performed in department. Interpretation Summary Moderate (50-69%) stenosis right extracranial internal carotid. Mild (<50%) stenosis left extracranial internal carotid. Flow within the vertebral arteries is antegrade bilaterally. Ordering Physician: Keke Ortiz Referring Physician: Renetta Barr Performed By: Enid Gómez, RDCS, RVT
== END | disposition home or self-care (01) ==
LOC: CVS 07:56
PROVIDERS: PCP Internal Medicine; Referring Provider Physician Assistant Medical; Visit Provider Physician Assistant Medical
DX: R55 Syncope and collapse (principal)
CPT/HCPCS: 93880

== ENCOUNTER → 2020-01-17 08:18 | Outpatient (CLI) | payer MEDICARE, SELFPAY ==
[2020-01-02 10:09] VITALS: BMI 24.9
--- NOTE | 2020-01-17 08:25 | BD_ITS ---
STUDY: DUAL ENERGY X-RAY ABSORPTIOMETRY / DXA REASON FOR EXAM: Female, 84 years old. COLORS CUSTODIAN -- TYPE 2 DIABETIC- ON MEDS -- TAKES THYROID MEDICATION -- TAKES CALCIUM AND VITAMIN D -- DOES MODERATE AMOUNT OF EXERCISE -- ETHAN OF 0.75 INCHES TECHNIQUE: Bone Mineral Density (BMD) measurements of lumbar spine and bilateral hips were obtained. COMPARISON: None. FINDINGS: Lumbar Spine (L1-L4): g/cm2 (1.221) / T-score (0.2) / Z-score (2.0) Findings are suggestive of normal bone density with a low fracture risk. Left Femur Total: g/cm2 (0.803) / T-score (-1.6) / Z-score (0.5) Left Femoral Neck: g/cm2 (0.824) / T-score (-1.5) / Z-score (0.7) Right Femur Total: g/cm2 (0.777) / T-score (-1.8) / Z-score (0.3) Right Femoral Neck: g/cm2 (0.790) / T-score (-1.8) / Z-score (0.5) BD/Dexa Bone Density Study IMPRESSION: The patient is considered osteopenic as outlined below according to World Isaiah Organization (WHO) criteria with a moderate fracture risk. Reference Information: The T-score is the number of standard deviations above or below the standard which is normal for young adults at their peak bone mineral density. The World Health Organization (WHO) interprets the T-scores as follows: Above -1 Normal bone density Between -1 and -2.5 Osteopenia Equal to / or below -2.5 Osteoporosis As a practical clinical guideline, osteopenia may be graded as follows: Mild -1 through -1.5 Moderate -1.6 through -2.0 Severe -2.1 through -2.4 The Z-score is the number of standard deviations above or below age-matched controls. A Z-score of less than -1.5 would be considered abnormal. References: 1. NIH Osteoporosis and Related Bone Diseases http://www.osteo.org 2. International Society for Clinical Densitometry http://www.iscd.org 3. National Osteoporosis Foundation http://www.nof.org Electronically Signed: Abel Mcmahon, at 10:00 EDT , Service support ,
== END ==
PROVIDERS: PCP Internal Medicine; Referring Provider Internal Medicine; Visit Provider Internal Medicine
DX: Z78.0 Asymptomatic menopausal state (principal); M85.80 Other specified disorders of bone density and structure, unspecified site; E11.9 Type 2 diabetes mellitus without complications
CPT/HCPCS: 77080

== ENCOUNTER 2020-03-17 13:31 | Emergency (ER) | payer MEDICARE, SELFPAY ==
[2020-01-02 10:09] VITALS: BMI 24.9
[2020-03-17] VITALS (7 sets, daily range): BP systolic 123–204; BP diastolic 53–99; PULSE 73–83; RESP 15–20; TEMP 36.6; O2SAT 97–98; BMI 26.0
--- NOTE | 2020-03-17 13:44 | CT_ITS ---
STUDY: CT CERVICAL SPINE WITHOUT CONTRAST REASON FOR EXAM: Female, 84 years old. Fall trauma neck pain RADIATION DOSAGE (If Supplied By Facility): CTDIvol = ( 13.82 ) mGy, DLP = ( 289.07 ) mGycm TECHNIQUE: High resolution transaxial imaging was performed without contrast material. Sagittal and coronal images were reconstructed. Individualized dose optimization techniques were used for this CT. COMPARISON: None FINDINGS: Craniocervical junction and cervical spine are intact and aligned. Mineralization is normal. Paraspinous soft tissues are normal. There is spondylotic degeneration at C4-C5 and C5-C6 endplates with uncinate and facet hypertrophy producing mild thecal sac stenosis. C4-C5 has bilateral moderate foraminal stenosis. C5-C6 has moderate to severe left foraminal stenosis. CT/Spine Cervical without Contras IMPRESSION: 1. No acute osseous injury. 2. Age-appropriate spondylosis with minor thecal sac stenosis. Electronically Signed: Zenon Wharton, at 14:35 EDT Tel , Service support ,
--- NOTE | 2020-03-17 13:44 | CT_ITS ---
STUDY: CT FACIAL BONES WITHOUT CONTRAST REASON FOR EXAM: Female, 84 years old. Fall trauma hit face facial pain RADIATION DOSAGE (If Supplied By Facility): CTDIvol = ( 29.38 ) mGy, DLP = ( 569.49 ) mGycm TECHNIQUE: The patient was scanned in a multi detector CT scanner. Sagittal and coronal images were reconstructed. Individualized dose optimization techniques were used for this CT. COMPARISON: None. FINDINGS: Skull base is intact. Facial bones are intact. Orbits are normal. Paranasal sinuses are clear. Soft tissues of the face are unremarkable. Upper airway is patent. CT/Sinus/Facial Bone IMPRESSION: 1. Unremarkable face CT. No acute facial fracture. Electronically Signed: Zenon Wharton, at 14:41 EDT Tel , Service support ,
--- NOTE | 2020-03-17 13:44 | CT_ITS ---
STUDY: CT BRAIN WITHOUT CONTRAST REASON FOR EXAM: Female, 84 years old. Fall trauma head pain and face pain RADIATION DOSAGE (If Supplied By Facility): CTDIvol = ( 44.99 ) mGy, DLP = ( 796.11 ) mGycm TECHNIQUE: Transaxial CT imaging of the brain was performed without administration of intravenous contrast material. Individualized dose optimization techniques were used for this CT. COMPARISON: No relevant priors. FINDINGS: There is a small, 3 mm thick, left prefrontal subdural hematoma. There is no subarachnoid, intraventricular or parenchymal hemorrhage. Brain parenchyma is intact without focal lesions. The skull is intact. CT/Brain/Head without Contrast IMPRESSION: 1. Small acute 3 mm thick left prefrontal subdural hematoma. Electronically Signed: Zenon Wharton, at 14:27 EDT Tel , Service support ,
--- NOTE | 2020-03-17 13:44 | RAD_ITS ---
STUDY: X-RAY - RIGHT WRIST REASON FOR EXAM: Female, 84 years old. Fall injury pain in the wrist TECHNIQUE: view(s) of the wrist were obtained. COMPARISON: None. FINDINGS: The bones of the wrist are intact and located. There are extensive degenerative changes at the base of the thumb. Mineralization is decreased. Soft tissues are intact without defects, foreign bodies or gas.. RAD/Wrist min 3 Views IMPRESSION: 1. No acute osseous injury. 2. Base of thumb degenerative change, age-appropriate. Electronically Signed: Zenon Wharton, at 14:52 EDT Tel , Service support ,
--- NOTE | 2020-03-17 14:08 | RAD_ITS ---
STUDY: X-RAY - LEFT HAND REASON FOR EXAM: Female, 84 years old. TRIPPED OVER CURB AND FELL ONTO PAVEMENT. PAIN AND ABRASION TO BOTH HANDS, LACERATION TO LEFT HAND. TECHNIQUE: view(s) of the hand. COMPARISON: None. FINDINGS: Normal radiocarpal articulation. Normal distal radioulnar joint. Normal visualized carpal bones. Normal carpal articulations Normal carpometacarpal articulation of the thumb. Normal second through fifth carpometacarpal joints. Normal metacarpi. Normal metacarpophalangeal joint of the thumb. Normal interphalangeal joint of the thumb. Normal proximal and distal phalanges of the thumb. Normal metacarpophalangeal joints of the second through fifth fingers. There are degenerative changes in the second through fifth distal interphalangeal joints, age-appropriate. The soft tissue structures are unremarkable. RAD/Hand Min 3 Views IMPRESSION: No acute osseous injury. Electronically Signed: Zenon Wharton, at 14:44 EDT Tel , Service support ,
--- NOTE | 2020-03-17 14:09 | RAD_ITS ---
STUDY: X-RAY - LEFT WRIST REASON FOR EXAM: Female, 84 years old. Tripped over curb, fall trauma pain TECHNIQUE: view(s) of the wrist were obtained. COMPARISON: None. FINDINGS: The bones of the wrist are intact and located. There is expected reactive change at the base of the thumb. Mineralization is decreased. Soft tissues are intact without gas, foreign bodies or laceration. RAD/Wrist min 3 Views IMPRESSION: 1. No acute osseous injury. No acute fracture. Electronically Signed: Zenon Wharton, at 14:50 EDT Tel , Service support ,
--- NOTE | 2020-03-17 14:15 | RAD_ITS ---
STUDY: X-RAY - RIGHT HAND REASON FOR EXAM: Female, 84 years old. TRIPPED OVER CURB AND FELL ONTO PAVEMENT. PAIN AND ABRASION TO BOTH HANDS. TECHNIQUE: 3 view(s) of the hand. COMPARISON: None. FINDINGS: Normal radiocarpal articulation. Normal distal radioulnar joint. Normal visualized carpal bones. Normal carpal articulations Normal carpometacarpal articulation of the thumb. Normal second through fifth carpometacarpal joints. Normal metacarpi. Normal metacarpophalangeal joint of the thumb. Normal interphalangeal joint of the thumb. Normal proximal and distal phalanges of the thumb. Normal metacarpophalangeal joints of the second through fifth fingers. There are moderate to severe degenerative changes of the second through fifth distal interphalangeal joints.. Normal phalanges of the second through fifth fingers. The soft tissue structures are unremarkable. RAD/Hand Min 3 Views IMPRESSION: No acute osseous injury. Second through fifth distal interphalangeal joint degeneration. Electronically Signed: Zenon Wharton, at 14:51 EDT Tel , Service support ,
--- NOTE | 2020-03-17 14:57 | ED.DCSUM_ITS ---
- ER Visit Summary Date of Service: 03/17/20 Chief Complaint: Fall History of Present Illness: The patient is a 84 F who tripped on a curb and fell from standing. She did not lose consciousness. She complains of a headache and she broke a tooth. She injured both of her hands and her wrists. Physical Examination: Blood pressure 176/78. Otherwise vitals unremarkable. Tooth #11 is fractured, otherwise head and neck are atraumatic. Heart regular. Lungs clear. Abdomen soft. Back is nontender. Bilateral hand and wrist tenderness. No deformity. Good range of motion. Abrasion to her upper lip and skin tear to her left base of her thumb. Cranial nerves grossly intact. Good strength and sensation. Test Results: Labs are pending. CT head shows a 3 mm left frontal subdural, otherwise imaging is unremarkable. X-rays are still pending. Emergency Department Course and Treatment: Patient was discussed with Dr. Adkins. He will accept the patient to [place] [id number]. He advised DDAVP. Patient received a dose here. He recommended keeping the blood pressure less than 160. Patient will receive a dose of labetalol as needed. She is stable for transfer for further care. Treatment Plan: As above Disposition: Transfer Impression: Left frontal subdural hematoma This note was generated with [employer] dictation software. It may contain incorrect words, spelling, and punctuation that were not noted in review of the chart prior to signing ED Disposition - Plan for ED Patient: Referrals: Renetta Barr MD [Primary Care Provider] -
[2020-03-17] MEDS: Labetalol 100 MG/20 ML Vial 10 MG IV (15:02)
[2020-03-17] MEDS: Diphth,Pertuss(Acell),Tet Vac 0.5 ML Vial IM (15:04)
[2020-03-17 15:08] LABS: International Normalized Ratio 1.1; Prothrombin Time (Protime)PT. 13.4 SECONDS (11.7-14.9)
[2020-03-17 15:09] LABS: Absolute Lymphocyte Count 2.32 X10^3/uL (0.83-4.51); Absolute Neutrophil Count 7.1 X10^3/uL (2.0-7.7); Basophil# 0.06 X10^3/uL; Basophil% 0.6 % (0-1); Eosinophil# 0.19 X10^3/uL; Eosinophils% 1.8 % (0-5); Hematocrit 41.4 % (37-47); Hemoglobin 13.3 g/dL (12.0-15.0); Lymphocyte # 2.32 X10^3/ul (4.0); Lymphocyte % 21.6 % (19-41); Mean Corp Hgb Conc 32.1 g/dL (32-36); Mean Corpuscular Hgb 29.2 pg (27.0-32.0); Mean Corpuscular Volume 90.8 fL (81-99); Monocyte# 1.08 X10^3/uL; Monocyte% 10.1 % (0-10); NRBC Flagged by Analyzer 0 % (0-5); Neutrophil # 7.05 X10^3/uL (2.7-7.7); Neutrophil % 65.6 % (47-70); Partial Thromboplast Time 24.7 Seconds (24.1-36.2); Platelet Count 262 K/mm3 (150-450); RBC Distribution Width CV 13.1 % (11.6-14.6); RBC Distribution Width SD 43.1 fl (35.1-43.9); Red Blood Count 4.56 M/mm3 (4.2-5.4); White Blood Count 10.7 K/mm3 (4.4-11.0)
[2020-03-17 15:16] LABS: Anion Gap 4 (5-15); BUN 15 mg/dL (7-18); BUN/Creat Ratio 13.2 RATIO (10-20); Calcium,Total 10.1 mg/dL (8.5-10.1); Chloride 106 mmol/L (98-107); Creatinine, Serum 1.14 mg/dL (0.55-1.02); EST Glomerular Filtration Rate 49 mL/min (>60); Est Glom Filt Rate - Afr Amer 59 mL/min (>60); Estimated Creatinine Clearance 32.85 ml/min; Glucose 139 mg/dL (74-106); Potassium 5.3 mmol/L (3.5-5.1); Sodium Level 138 mmol/L (136-145)
[2020-03-17] MEDS: Desmopressin Acetate 40 MCG/10 ML Vial 20 MCG IV (15:23)
== END 2020-03-17 16:11 | disposition short-term general hospital (02) ==
PROVIDERS: Emergency Provider Emergency Medicine; PCP Internal Medicine
DX: S06.5X0A Traumatic subdural hemorrhage without loss of consciousness, initial encounter (principal); S02.5XXA Fracture of tooth (traumatic), initial encounter for closed fracture; S61.412A Laceration without foreign body of left hand, initial encounter; S00.511A Abrasion of lip, initial encounter; M79.641 Pain in right hand; M25.532 Pain in left wrist; M25.531 Pain in right wrist; W01.198A Fall on same level from slipping, tripping and stumbling with subsequent striking against other object, initial encounter; Y93.9 Activity, unspecified; Y92.9 Unspecified place or not applicable; I48.91 Unspecified atrial fibrillation; Y99.9 Unspecified external cause status; E11.9 Type 2 diabetes mellitus without complications; I10 Essential (primary) hypertension; Z79.84 Long term (current) use of oral hypoglycemic drugs; Z79.82 Long term (current) use of aspirin; Z79.899 Other long term (current) drug therapy
CPT/HCPCS: 70450; 70486; 72125; 73110; 73130; 80048; 85025; 85610; 85730; 90715; 96374; 96375; 99285; A4216; J2597

== ENCOUNTER → 2020-04-25 08:20 | Outpatient (CLI) | payer MEDICARE, SELFPAY ==
[2020-03-20 14:35] VITALS: BMI 24.7
[2020-04-25 09:32] LABS: AST(SGOT) 15 U/L (15-37); Alanine Aminotransfer ALT/SGPT 18 U/L (13-56); Albumin, Serum 3.7 g/dL (3.2-5.0); Alkaline Phosphatase 88 U/L (45-117); Bilirubin, Direct 0.19 mg/dL (0.00-0.30); Cholesterol 104 mg/dL (200); High Density Lipoprotein 39 mg/dL; Protein, Total 7.7 g/dL (6.4-8.2); Triglycerides 137 mg/dL; Very Low Density Lipoprotein 27 mg/dL (5-40)
== END ==
PROVIDERS: PCP Internal Medicine; Referring Provider Internal Medicine Cardiovascular Disease; Visit Provider Internal Medicine Cardiovascular Disease
DX: E78.5 Hyperlipidemia, unspecified (principal)
CPT/HCPCS: 36415; 80061; 80076; J7030; A4216

== ENCOUNTER 2020-07-02 14:10 | Emergency (ER) | payer MEDICARE, SELFPAY ==
[2020-05-01 09:29] VITALS: BMI 25.0
[2020-07-02 14:10] VITALS: BP 171/78; PULSE 84; RESP 136; TEMP 36.3; O2SAT 99; BMI 24.6
[2020-07-02 14:15] VITALS: TEMP 36.4
--- NOTE | 2020-07-02 14:18 | RAD_ITS ---
STUDY: X-RAY - LUMBAR SPINE REASON FOR EXAM: Female, 84 years old. fell on ice today -- LBP TECHNIQUE: 3 view(s) of the lumbar spine were obtained. COMPARISON: None FINDINGS: Normal lumbar lordosis. Mild levoscoliosis. There is a normal alignment of the vertebrae. There is multilevel endplate spondylosis of the lumbar vertebrae. There is multi-level degenerative disc disease with multi-level disc space narrowing. The soft tissue structures are unremarkable. RAD/Lumbar Spine 2 or 3 Views IMPRESSION: Mild levoscoliosis with mild diffuse degenerative disc disease per Electronically Signed: Tomás Noel MD at 15:27 EST Tel , Service support ,
--- NOTE | 2020-07-02 14:18 | RAD_ITS ---
STUDY: X-RAY - RIGHT HAND REASON FOR EXAM: Female, 84 years old. Fell on ice today, pain -- laceration to R hand TECHNIQUE: 3 view(s) of the hand. COMPARISON: 03/17/2020 FINDINGS: Normal radiocarpal articulation. Normal distal radioulnar joint. Normal visualized carpal bones. There is degenerative joint disease of the scaphotrapezium / trapezoid articulation. The remainder of the carpal articulations are normal. There is degenerative arthrosis of the carpometacarpal (CMC) articulation of the thumb. Normal second through fifth carpometacarpal joints. Normal metacarpi. Normal metacarpophalangeal joint of the thumb. Normal interphalangeal joint of the thumb. Normal proximal and distal phalanges of the thumb. Normal metacarpophalangeal joints of the second through fifth fingers. There is diffuse articular joint space narrowing of the proximal and distal interphalangeal joints of the second through fifth fingers, but without erosive changes or periarticular soft tissue swelling. Normal phalanges of the second through fifth fingers. The soft tissue structures are unremarkable. RAD/Hand Min 3 Views IMPRESSION: Degenerative joint disease of the hand and wrist, as described above. No acute fracture or dislocation. Electronically Signed: Tomás Noel MD at 15:26 EST Tel , Service support ,
--- NOTE | 2020-07-02 14:18 | RAD_ITS ---
STUDY: X-RAY - RIGHT WRIST REASON FOR EXAM: Right wrist pain after right wrist injury from a fall today. TECHNIQUE: 3 view(s) of the wrist were obtained. COMPARISON: Radiographs 03/17/2020. FINDINGS: Normal visualized distal radius and ulna. Normal radiocarpal articulation. Normal distal radioulnar articulation. Normal carpal bones. There is severe joint space narrowing of the triscaphe articulation. There are marginal osteophytes and severe joint space narrowing of the carpometacarpal articulation of the thumb. Normal second through fifth carpometacarpal articulations. Normal visualized metacarpal bones. There is mild vascular calcification. 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 No demonstrated fracture. Electronically Signed: Tavo Castro MD at 15:17 EST Tel , Service support ,
--- NOTE | 2020-07-02 14:18 | RAD_ITS ---
STUDY: X-RAY - THORACIC SPINE REASON FOR EXAM: Female, 84 years old. fell on ice today, pain TECHNIQUE: 3 view(s) of the thoracic spine were obtained. COMPARISON: None. FINDINGS: Normal kyphosis of the thoracic spine. There is no substantial scoliosis. Normal thoracic vertebrae and endplates. Normal disc space heights. Mild wedge compression fracture of L1 which may be acute or chronic. Clinical correlation correlation MRI would be useful. The soft tissue structures are unremarkable. RAD/Thoracic Spine 3 Views IMPRESSION: Mild compression fracture of L1 which may be acute or chronic and clinical correlation and MRI may be useful for Electronically Signed: Tomás Noel MD at 15:31 EST Tel , Service support ,
--- NOTE | 2020-07-02 14:22 | ED.VISSUMM ---
- ER Visit Summary Date of Service: 07/02/20 Chief Complaint: Fall History of Present Illness: The patient is a 84 F presenting after fall. Patient states she slipped on icy steps and fell down approximately 2 steps. She landed on her back. She denies hitting her head. She denies loss of consciousness. She complains of mid and lower back pain. She caught herself with her right hand and has a skin tear to the right hand. She is on aspirin, no other anticoagulants. No other complaints. Tetanus is up-to-date. Physical Examination: Vitals are stable. Patient is afebrile. Alert no acute distress. HEENT exam is unremarkable. No evidence of head trauma Neck is nontender Lungs are clear and equal bilaterally. Heart is regular rate and rhythm. Abdomen is soft nontender nondistended. Back: Mild thoracic and lumbar tenderness with no step-off Extremities skin tear right hand. Active full range of motion, no bony tenderness. Skin is warm and dry. No focal neurologic deficit. Remainder of exam is unremarkable. Emergency Department Course and Treatment: Skin tear was cleaned and dressed. Right hand and wrist x-ray read by myself and radiology show no acute fracture or dislocation. Lumbar xray shows mild levoscoliosis with mild diffuse degenerative disc disease. Thoracic xray shows mild compression fracture of L1 which may be acute or chronic. Patient was able to ambulate in the ED without difficulty. She is resting comfortably. She will follow-up with her primary care physician at scheduled appointment. She states she will take Tylenol and declines other pain medications. Advised wound care instructions. She is advised to return to the ED for worsening complaints. Disposition: Discharge home Impression: Status post mechanical fall, L1 compression fracture, skin tear right hand This note was generated with [employer] dictation software. It may contain incorrect words, spelling, and punctuation that were not noted in review of the chart prior to signing ED Disposition - Plan for ED Patient: Instructions: Back Fracture (Compression Fracture), ED Mechanical Fall, ED Skin Avulsion Referrals: Renetta Barr MD [Primary Care Provider] -
[2020-07-02 15:34] VITALS: BP 159/66; PULSE 74; RESP 17; O2SAT 97
--- NOTE | 2020-07-02 15:34 | ED.RN ---
Patient ambulated to bathroom and back with steady gait.
--- NOTE | 2020-07-02 15:43 | ED.DEP ---
ED Disposition - Plan for ED Patient: Instructions: ED Mechanical Fall, Back Fracture (Compression Fracture), ED Skin Avulsion Referrals: Renetta Barr MD [Primary Care Provider] -
[2020-07-02 15:52] VITALS: PULSE 74; RESP 17; O2SAT 99
== END 2020-07-02 15:54 | disposition home or self-care (01) ==
LOC: ED 15:08
PROVIDERS: Emergency Provider Emergency Medicine; PCP Internal Medicine
DX: S32.019A Unspecified fracture of first lumbar vertebra, initial encounter for closed fracture (principal); S61.411A Laceration without foreign body of right hand, initial encounter; W00.1XXA Fall from stairs and steps due to ice and snow, initial encounter; Y93.9 Activity, unspecified; Y92.9 Unspecified place or not applicable; Y99.9 Unspecified external cause status; M51.36 Other intervertebral disc degeneration, lumbar region; I48.91 Unspecified atrial fibrillation; I25.10 Atherosclerotic heart disease of native coronary artery without angina pectoris; E11.9 Type 2 diabetes mellitus without complications; I10 Essential (primary) hypertension; Z79.82 Long term (current) use of aspirin; Z79.899 Other long term (current) drug therapy
CPT/HCPCS: 72072; 72100; 73110; 73130; 99282

== ENCOUNTER → 2020-08-06 10:23 | Outpatient (CLI) | payer MEDICARE, SELFPAY ==
[2020-08-06 09:32] VITALS: BMI 23.9
[2020-08-06 12:54] LABS: Vitamin B12 394 pg/mL (211-911)
== END ==
PROVIDERS: PCP Internal Medicine; Visit Provider Internal Medicine
DX: E53.8 Deficiency of other specified B group vitamins (principal)
CPT/HCPCS: 36415; 82607

== ENCOUNTER → 2020-11-01 07:47 | Outpatient (CLI) | payer MEDICARE, SELFPAY ==
[2020-08-06 09:32] VITALS: BMI 23.9
--- NOTE | 2020-11-01 07:49 | BI_ITS ---
MAMMOGRAPHY - UNILATERAL SCREENING: LEFT BREAST REASON FOR EXAM: Female, 84 years old. Routine annual screening examination (unilateral). PERTINENT HISTORY: Personal history of breast cancer. Prior right mastectomy. Left excisional breast biopsy. TECHNIQUE: Digital unilateral breast ariela (3D mammographic acquisition) in the CC and MLO projections. 2-D mediolateral oblique (MLO) and craniocaudad (CC) views of both breasts were obtained. CAD: Full Field Digital Mammography with Computer Added Detection was performed. COMPARISON: Comparison is made with prior study dated 10/28/2019 and 03/22/2019. FINDINGS: Breast Composition: There are scattered areas of fibroglandular density. There are no dominant masses or suspicious calcifications. No other significant abnormalities are identified. There has been no significant change since the prior study. BI/SCREEN MAMM (CAD) W/ARIELA UNI L IMPRESSION: Stable unilateral screening mammogram. Yearly follow-up mammogram recommended. (A) ASSESSMENT CATEGORY: BIRADS Category 1: Negative. A letter regarding these results will be sent to the patient by the facility within 30 days. Approximately 10% of breast cancers are not detected by mammography. A normal mammogram should not delay biopsy of a clinically suspicious abnormality. [id number] Electronically Signed: Abel Mcmahon MD at 8:51 EDT , Service support ,
== END ==
PROVIDERS: PCP Internal Medicine; Referring Provider Internal Medicine; Visit Provider Internal Medicine
DX: Z12.31 Encounter for screening mammogram for malignant neoplasm of breast (principal); Z85.3 Personal history of malignant neoplasm of breast; Z90.11 Acquired absence of right breast and nipple
CPT/HCPCS: 77063; 77067

== ENCOUNTER → 2020-11-05 10:11 | Outpatient (CLI) | payer MEDICARE, SELFPAY ==
[2020-11-05 09:35] VITALS: BMI 23.9
[2020-11-05 12:38] LABS: Vitamin B12 399 pg/mL (211-911)
[2020-11-05 13:00] LABS: AST(SGOT) 12 U/L (15-37); Alanine Aminotransfer ALT/SGPT 17 U/L (13-56); Albumin, Serum 3.8 g/dL (3.2-5.0); Alkaline Phosphatase 89 U/L (45-117); Bilirubin, Direct 0.18 mg/dL (0.00-0.30); Cholesterol 116 mg/dL (200); Globulin 4.1 g/dL (2.2-4.2); High Density Lipoprotein 41 mg/dL; Protein, Total 7.9 g/dL (6.4-8.2); Triglycerides 163 mg/dL; Very Low Density Lipoprotein 33 mg/dL (5-40)
[2020-11-05 13:03] LABS: Anion Gap 6 (5-15); BUN 13 mg/dL (7-18); Calcium,Total 9.9 mg/dL (8.5-10.1); Chloride 105 mmol/L (98-107); Creatinine, Serum 1.08 mg/dL (0.55-1.02); EST Glomerular Filtration Rate 52 mL/min (>60); Est Glom Filt Rate - Afr Amer 62 mL/min (>60); Glucose 141 mg/dL (74-106); Potassium 4.9 mmol/L (3.5-5.1); Sodium Level 139 mmol/L (136-145); Thyroid Stim Hormone (TSH) 2.77 uIU/mL (0.358-3.74)
== END ==
PROVIDERS: Internal Medicine Cardiovascular Disease; PCP Internal Medicine; Referring Provider Internal Medicine; Visit Provider Internal Medicine
DX: I10 Essential (primary) hypertension (principal); E78.5 Hyperlipidemia, unspecified; E78.00 Pure hypercholesterolemia, unspecified; E03.9 Hypothyroidism, unspecified; E53.8 Deficiency of other specified B group vitamins
CPT/HCPCS: 36415; 80048; 80061; 80076; 82607; 84443

== ENCOUNTER → 2020-12-14 12:48 | Outpatient (CLI) | payer MEDICARE, SELFPAY ==
[2020-11-05 09:35] VITALS: BMI 23.9
--- NOTE | 2020-12-14 12:50 | ART_ITS ---
Reason For Study: PVD Procedure A bilateral lower extremity continuous wave Doppler with analog waveform analysis,segmental pressures,and ankle brachial indexes without exercise. Left Segmental Pressures Left brachial= 135mmHg. Left posterior tibial artery = 162mmHg. Left dorsalis pedis artery = 144mmHg. Left digit = 87 mmHg. Right Segmental Pressures Right posterior tibial artery = 168mmHg. Right dorsalis pedis artery = 155mmHg. Right digit = 92 mmHg. Indices The right ankle brachial index by the posterior tibial artery is 1.24. The right ankle brachial index by the dorsalis pedis is 1.15. The right digital-brachial index is 0.68. The left ankle brachial index by the posterior tibial artery is 1.20. The left ankle brachial index by the dorsalis pedis is 1.07. The left digital-brachial index is 0.64. VL/Lower Ext Art Exam w/o Exercis Interpretation Summary Triphasic Doppler waveforms are noted at ankle level bilaterally. Pulse-volume recording waveform amplitudes are diminished at digital level on the left, but satisfactory at all other levels bilaterally. Resting ankle-brachial indices are normal bilaterally. Digital-bra chial indices are mildly diminished bilaterally. Arterial flow appears normal at ankle level bilaterally. There is evidence of m ild, distal, small- vessel arterial occlusive disease at digital level bilaterally. Ordering Physician: Duarte Roberts Referring Physician: Duarte Roberts Performed By: Eileen Machado RDCS/RVT
== END ==
PROVIDERS: PCP Internal Medicine; Referring Provider Podiatrist; Visit Provider Podiatrist
DX: E11.51 Type 2 diabetes mellitus with diabetic peripheral angiopathy without gangrene (principal)
CPT/HCPCS: 93923

== ENCOUNTER → 2021-02-06 10:15 | Outpatient (CLI) | payer MEDICARE, SELFPAY ==
[2021-02-06 11:19] LABS: Anion Gap 5 (5-15); BUN 17 mg/dL (7-18); BUN/Creat Ratio 16.5 RATIO (10-20); Calcium,Total 10.1 mg/dL (8.5-10.1); Chloride 102 mmol/L (98-107); Creatinine, Serum 1.03 mg/dL (0.55-1.02); EST Glomerular Filtration Rate 54 mL/min (>60); Est Glom Filt Rate - Afr Amer 66 mL/min (>60); Glucose 162 mg/dL (74-106); Potassium 5.2 mmol/L (3.5-5.1); Sodium Level 136 mmol/L (136-145)
[2021-02-06 11:30] LABS: Microalbumin,Random Urine 25.3 mg/L (NO RANGE EST.); Microalbumin:Creatinine Ratio 20.2 mg/g CRE (<30 mg/g CRE)
== END ==
PROVIDERS: PCP Internal Medicine; Referring Provider Internal Medicine; Visit Provider Internal Medicine
DX: E11.9 Type 2 diabetes mellitus without complications (principal)
CPT/HCPCS: 36415; 80048; 82043; 82570

== ENCOUNTER → 2021-02-27 08:43 | Outpatient (CLI) | payer MEDICARE, SELFPAY ==
[2021-02-27 12:52] LABS: Potassium 5.6 mmol/L (3.5-5.1)
== END ==
PROVIDERS: PCP Internal Medicine; Referring Provider Internal Medicine; Visit Provider Internal Medicine
DX: E87.5 Hyperkalemia (principal)
CPT/HCPCS: 36415; 84132

== ENCOUNTER 2021-03-07 11:30 | Outpatient (RCR) | payer MEDICARE, SELFPAY ==
--- NOTE | 2021-02-13 11:41 | HP.PTEVAL_ITS ---
Patient's Visit Information LAKEISHA SHIRLEY is a 85 year old F referred to Physical Therapy by Dr. Renetta Barr MD with a diagnosis of Unsteady gait. Date of Evaluation: 02/13/21 Physical Therapist: Martinez Zhang, DPT, OCS, CSCS - Visit Plan Frequency: 2x /Week Duration: 4-6 Weeks Plan: 2x/week for 4-6 weeks. Recommended patient use cane but declines, does not wish to. Reviewwed in depth balance systems and risks with HO. Pt to be careful and focussed when walking. Please teach and progress to HEP the following... 1. weight shift exerices. 2. vestibular challenges(VOR, head movement, foam, ec balance ex). 3. General LE and postural strength ex pt can eventually do at home. Give pics as safety allows. - Subjective When I walk I sometimes run into wall, no dizzyness or spinning. Walks with and bumps into him sometimes. I do have tremors and has seen neurologist but no current management. Dr. Barr wants her to recheck with neuro. Feels insteady all the time not inetrmittent and has to be careful on steps and use railing, has fear of falling. No cane or walker needed. Admits to falling a year ago in front of [employer] and breaking tooth, occasionally will mis a step or trip on something. Was trying to multi task. Sleep is not great but that is normal for her. No pain. No dizzyness. Denies neuropathy. Not employed. Activities inculde trying to keep busy. Worked at [employer] until last year. No regular exercises. Used to walk all the time. Basic ADLS are getting done easily. Tremors make measuirng hard. and writing. - Objective Walks back to PT I a little slow. Trasnfers without UE I bed and chair. steps with one rail up and down reciprocally. When I challenge her walking she staggers quite a bit with head movemnets, visual challenges. Recommended using a cane but she does not have a cane or walker nor wish to use one at this point. reflexes 2/3 patella and achilles. Sensation WNL to gross light touch in LE. 4-/5 LE stretngth without myotomal abnormalities except hip abd, flexion, and ext which are 3+. Coordination to reciprocal toe tap is good, heel to cantrell test is good. Able to heel raise well with min support. VOR walking is a challenge for patient. - Balance/Special Test Scores Functional Gait Assessment Score: 20 % Disability: 33.3400 CATSIB Score (Max score 120 seconds): 45 Lower Extremity Functional Score: 63 - Goals Goal 1:: FGA to diminish fall risk. Goal Time Frame: 4-6 Weeks Goal 2:: Pt ambulate through PT department with head mvements without staggering Goal Time Frame: 4-6 Weeks Goal 3:: Pt feel 75% bbetter in overall balance and I appropriate HEP to minimize future risks. Goal Time Frame: 4-6 Weeks - Rehabilitation Potential Physical Therapy Diagnosis: Unsteady gait. Rehabilitation Potential: Fair - Anticipated Interventions Patient/Client Instruction: Educate patient on: Condition, Plan of Care, Risk Factors For the Purpose of:: To increase tolerance to activity/condition/position, To improve ability of physical actions for home/community/work/leisure, To improve gait and locomotor functions, To improve safety with gait Therapeutic Exercise to Include: Strength training, Balance training, Gait and locomotor training For the Purpose of:: To improve ability of physical actions for home/community/work/leisure, To improve safety with gait, To improve safety Thank you for the opportunity to evaluate your patient. For Medicare and Medicare HMO plans, please review the plan of care and approve it. It will need to be FAXED BACK to us at [phone] for Medicare purposes. For Medicare only, by signing this I certify the plan of care. Please let me know if there are questions or concerns regarding this plan of care. Physician Signature: Date:
--- NOTE | 2021-03-07 12:17 | HP.PTDCSUM ---
It has been my pleasure to treat LAKEISHA SHIRLEY referred by Dr. Renetta Barr MD, with the diagnosis of Unsteady gait for a total of 7 visit(s). Discharge Date: 03/07/21 Please see the following information for a summary of their discharge status. Subjective: Doing pretty good. No new complaitns. % Improvement: 75 Objective/Function: Great tolerance to all strength and dynamic balance activities. Mild dizzy following fast movement VOR. Left knee mildly bothersome with squat, step-up and nustep, etc. Goal 1:: FGA to diminish fall risk. Goal Progress: Goal Met Goal 2:: Pt ambulate through PT department with head mvements without staggering Goal Progress: Goal Met Goal 3:: Pt feel 75% bbetter in overall balance and I appropriate HEP to minimize future risks. Goal Progress: Goal Met Plan: Re-check with [facility]. Discharge Comments: Will continue HEP at homeand f/u doctor in 2 weeks. If there are questions or concerns regarding this patient's physical therapy, please feel free to call me at [phone]. Thank you for the referral of this patient. Sincerely, Martinez Zhang, DPT, OCS, CSCS Balance/Gait/Functional tests - Balance/Special Test Scores Functional Gait Assessment Score: 24 % Disability: 20.0000 CATSIB Score (Max score 120 seconds): 45 Lower Extremity Functional Score: 63
== END 2021-03-07 19:00 | disposition home or self-care (01) ==
LOC: PT 11:30
PROVIDERS: PCP Internal Medicine; Referring Provider Internal Medicine; Visit Provider Internal Medicine
DX: R26.81 Unsteadiness on feet (principal)
CPT/HCPCS: 97110; 97162; 97164

== ENCOUNTER → 2021-03-28 09:04 | Outpatient (CLI) | payer MEDICARE, SELFPAY ==
[2021-03-28 12:24] LABS: Anion Gap 8 (5-15); BUN 16 mg/dL (7-18); BUN/Creat Ratio 13.4 RATIO (10-20); Calcium,Total 9.5 mg/dL (8.5-10.1); Chloride 101 mmol/L (98-107); Creatinine, Serum 1.19 mg/dL (0.55-1.02); EST Glomerular Filtration Rate 46 mL/min (>60); Est Glom Filt Rate - Afr Amer 56 mL/min (>60); Glucose 180 mg/dL (74-106); Potassium 4.4 mmol/L (3.5-5.1); Sodium Level 138 mmol/L (136-145)
== END ==
PROVIDERS: PCP Internal Medicine; Visit Provider Internal Medicine
DX: E87.5 Hyperkalemia (principal)
CPT/HCPCS: 36415; 80048

== ENCOUNTER → 2021-04-08 09:08 | Outpatient (CLI) | payer MEDICARE, SELFPAY ==
[2021-04-08 12:26] LABS: Anion Gap 5 (5-15); BUN 16 mg/dL (7-18); BUN/Creat Ratio 14.3 RATIO (10-20); Calcium,Total 9.6 mg/dL (8.5-10.1); Chloride 102 mmol/L (98-107); Creatinine, Serum 1.12 mg/dL (0.55-1.02); EST Glomerular Filtration Rate 49 mL/min (>60); Est Glom Filt Rate - Afr Amer 60 mL/min (>60); Glucose 176 mg/dL (74-106); Potassium 4.3 mmol/L (3.5-5.1); Sodium Level 135 mmol/L (136-145)
[2021-04-08 12:35] LABS: Hemoglobin A1c 7.2 % (3.8-5.6)
== END ==
PROVIDERS: PCP Internal Medicine; Referring Provider Internal Medicine; Visit Provider Internal Medicine
DX: E11.9 Type 2 diabetes mellitus without complications (principal); I10 Essential (primary) hypertension
CPT/HCPCS: 36415; 80048; 83036

== ENCOUNTER 2021-09-09 09:22 | Outpatient (RCR) | payer MEDICARE, SELFPAY ==
--- NOTE | 2021-09-09 10:30 | HP.PTEVAL_ITS ---
Patient's Visit Information LAKEISHA SHIRLEY is a 85 year old F referred to Physical Therapy by MERLINE Chaudhary with a diagnosis of Ataxia. Date of Evaluation: 09/09/21 Physical Therapist: Pola Turner, PT, ATC - Visit Plan Frequency: 1x/Week Duration: 1 Week Plan: Pt is to continue with I HEP and gym membership for one month. Pt will follow up if she still has balance disturbances at that time. Pt to be discharged at that time if now balance issue remain. - Subjective Pt reports she has had difficulty with walking for quite a while. Pt notes she walks sometimes like she is drunk. Pt reports she will get light headed at times which makes her lose her balance and fall. Pt notes she has had several falls in the past. Pt reports she can sense that the light headedness is coming on at times, but other times she cant and that is when she falls. Pt reports she has had several diagnostic tests which really haven't given her a solid reason for her falls. Pt does note that she feels like her L ear may be clogged a little. Pt reports she has good feeling in both of her LE's. Pt reports once her light headed feelings start, she is unable to stop herself from walking and usually results in a fall. Pt notes joe has been told to use a walker in the past, but notes she is not ready to use one yet. Pt notes she has had PT for this in the past and has ex's at home which she does still do on occasion. Pt reports she has L hip pain when she walks because she needs a L ARIAS but wants to hold off on that for now. - Pain L hip Pain Intensity (Out of 10): N/A Pain Intensity Range: N/A - Objective Neuro: B LE sensation is WNL to light touch. B patellar reflex= 1/3. ROM: B LE's are WFL this date. MMT: B LE's are grossly 5/5 throughout. FGA: 20/30 (Normal range for her age group) - Balance/Special Test Scores Functional Gait Assessment Score: 20 % Disability: 33.3400 - Goals Goal 1:: Pt will consistently perform her HEP for balance improvement and begin strengthening ex's with a gym membership to aid with preventing future falls Goal Time Frame: 4-6 Weeks - Rehabilitation Potential Physical Therapy Diagnosis: Pt has a Hx of falls secondary to ataxia Rehabilitation Potential: Good - Anticipated Interventions Patient/Client Instruction: Educate patient on: Condition, Plan of Care For the Purpose of:: To improve self management Therapeutic Exercise to Include: Strength training, Endurance training, Balance training For the Purpose of:: To improve muscle performance and motor function, To increase tolerance to activity/condition/position Thank you for the opportunity to evaluate your patient. For Medicare and Medicare HMO plans, please review the plan of care and approve it. It will need to be FAXED BACK to us at [phone] for Medicare purposes. For Medicare only, by signing this I certify the plan of care. Please let me know if there are questions or concerns regarding this plan of care. Physician Signature: Date :
--- NOTE | 2021-11-08 12:58 | HP.PT.NRP ---
LAKEISHA SHIRLEY was seen in my office for initial evaluation on 09/09/21. The following Plan of Care was established for this patient: Initial Frequency: 1x/Week Initial Duration: 1 Week Patient/Client Instruction: Educate patient on: Condition, Plan of Care For the Purpose of:: To improve self management Therapeutic Exercise to Include: Strength training, Endurance training, Balance training For the Purpose of:: To improve muscle performance and motor function, To increase tolerance to activity/condition/position This patient was last seen in our office . Pertinent comments regarding their Physical therapy will appear below: Pt was treated for 1 PT visit for unsteady gait through the date of 09/09/21. Pt has not returned through todays date and is discontinued at this time At this point I will be discontinuing this patient from physical therapy. I would be happy to see this patient again in the future if found appropriate by the physician. Thank you! Pola Turner, PT, ATC Balance/Gait/Functional tests - Balance/Special Test Scores Functional Gait Assessment Score: 20 % Disability: 33.3400
== END 2021-09-09 19:00 | disposition home or self-care (01) ==
LOC: PT 09:22
PROVIDERS: PCP Internal Medicine; Referring Provider Physician Assistant; Visit Provider Physician Assistant
DX: R27.0 Ataxia, unspecified (principal)
CPT/HCPCS: 97161

== ENCOUNTER → 2021-11-26 | Outpatient (CLI) | payer MEDICARE, SELFPAY ==
--- NOTE | 2021-11-26 08:00 | BI_ITS ---
MAMMOGRAPHY - UNILATERAL SCREENING: LEFT BREAST REASON FOR EXAM: Female, 86 years old. Routine annual screening examination (unilateral). PERTINENT HISTORY: Personal history of breast cancer. Prior right mastectomy. Prior left excisional breast biopsy. TECHNIQUE: Digital unilateral breast ariela (3D mammographic acquisition) in the CC and MLO projections. 2-D mediolateral oblique (MLO) and craniocaudad (CC) views of both breasts were obtained. CAD: Full Field Digital Mammography with Computer Added Detection was performed. COMPARISON: Comparison is made with prior study dated 11/01/2020 and 10/28/2019. FINDINGS: Breast Composition: There are scattered areas of fibroglandular density. There are no dominant masses or suspicious calcifications. A tissue clip marker is seen in the upper lateral aspect of the left breast. No other significant abnormalities are identified. There has been no significant change since the prior study. BI/SCREEN MAMM (CAD) W/ARIELA UNI L IMPRESSION: Stable unilateral screening mammogram. Yearly follow-up mammogram recommended. (A) ASSESSMENT CATEGORY: BIRADS Category 2: Benign. A letter regarding these results will be sent to the patient by the facility within 30 days. Approximately 10% of breast cancers are not detected by mammography. A normal mammogram should not delay biopsy of a clinically suspicious abnormality. [id number] Electronically Signed: Abel Mcmahon MD at 9:40 EDT ,
== END | disposition home or self-care (01) ==
PROVIDERS: PCP Internal Medicine; Visit Provider Internal Medicine
DX: Z12.31 Encounter for screening mammogram for malignant neoplasm of breast (principal); Z90.11 Acquired absence of right breast and nipple
CPT/HCPCS: 77063; 77067

== ENCOUNTER → 2021-12-09 | Outpatient (CLI) | payer MEDICARE, SELFPAY ==
[2021-12-09 09:02] LABS: AST(SGOT) 18 U/L (15-37); Alanine Aminotransfer ALT/SGPT 16 U/L (13-56); Albumin, Serum 3.8 g/dL (3.2-5.0); Alkaline Phosphatase 59 U/L (45-117); Bilirubin, Direct 0.18 mg/dL (0.00-0.30); Cholesterol 108 mg/dL (200); High Density Lipoprotein 39 mg/dL; Protein, Total 7.8 g/dL (6.4-8.2); Triglycerides 137 mg/dL; Very Low Density Lipoprotein 27 mg/dL (5-40)
== END | disposition home or self-care (01) ==
LOC: LAB 07:39
PROVIDERS: PCP Internal Medicine; Referring Provider Internal Medicine Cardiovascular Disease; Visit Provider Internal Medicine Cardiovascular Disease
DX: E78.00 Pure hypercholesterolemia, unspecified (principal)
CPT/HCPCS: 36415; 80061; 80076

== ENCOUNTER 2021-12-29 09:37 | Emergency (ER) | payer MEDICARE, SELFPAY ==
[2021-12-29 09:39] VITALS: BP 129/67; PULSE 70; RESP 16; TEMP 36.3; O2SAT 98; BMI 22.1
--- NOTE | 2021-12-29 10:30 | RAD_ITS ---
STUDY: X-RAY - LEFT KNEE REASON FOR EXAM: Female, 86 years old. fall TECHNIQUE: 4 view(s) of the knee. COMPARISON: None. FINDINGS: Normal visualized distal femur. Normal visualized proximal tibia and fibula. Normal proximal tibiofibular articulation. There is no demonstrated fracture. Normal medial femorotibial compartment. 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 Normal patellofemoral articulation. There is no demonstrated joint effusion. There are atherosclerotic calcifications. Moderate prepatellar soft tissue swelling is present. RAD/Knee 4 or More Views IMPRESSION: 1. Degenerative arthrosis. 2. Moderate prepatellar soft tissue swelling. Electronically Signed: Devendra Coon MD at 12:03 EDT ,
--- NOTE | 2021-12-29 10:30 | CT_ITS ---
STUDY: CT BRAIN WITHOUT CONTRAST REASON FOR EXAM: Female, 86 years old. fell today hitting left head/cheek. H diabetes, breast cancer. RADIATION DOSAGE (If Supplied By Facility): CTDIvol = ( 44.99 ) mGy, DLP = ( 796.11 ) mGycm TECHNIQUE: Transaxial CT imaging of the brain was performed without administration of intravenous contrast material. Individualized dose optimization techniques were used for this CT. COMPARISON: Head CT dated March 17, 2020 FINDINGS: Acute nondisplaced oblique fractures are present through the anterior and posterior norris of the left maxillary sinus resulting and a moderate amount of hemorrhage filling the left maxillary sinus. No visualized skull fracture or hemorrhagic contusions of the brain parenchyma. Normal calvarium. There is moderate cerebral atrophy with widening of the extra-axial spaces and ventricular dilatation. There are areas of decreased attenuation within the white matter tracts of the supratentorial brain, consistent with microvascular disease changes. There are small punctate calcifications of the basal ganglia which are seen in the aging brain as a normal variant. Normal brainstem. Normal cerebellum. There is no intracranial hemorrhage. There are no findings of an acute ischemic infarction. Normal visualized paranasal sinuses. CT/Brain/Head without Contrast IMPRESSION: 1. Acute fractures of the anterior and posterior norris of the left maxillary sinus with a moderate amount of hemorrhage within the sinus chamber. 2. Chronic involutional changes of the brain. Electronically Signed: Devendra Coon MD at 12:06 EDT ,
--- NOTE | 2021-12-29 10:30 | CT_ITS ---
STUDY: CT FACIAL BONES WITHOUT CONTRAST REASON FOR EXAM: Female, 86 years old. fell today hitting left head/cheek. H diabetes, breast cancer. RADIATION DOSAGE (If Supplied By Facility): CTDIvol = ( 29.38 ) mGy, DLP = ( 518.07 ) mGycm TECHNIQUE: Axial CT images of the facial bones were obtained with multiplanar reconstruction. The protocol utilizes one or more of the following dose reduction techniques: automated exposure control, adjustment of the mA and/or KV according to the patient size, and/or use of iterative reconstruction techniques. Individualized dose optimization techniques were used for this CT. COMPARISON: No relevant priors. FINDINGS: Acute oblique minimally displaced fractures are present in the anterior and posterior norris of the left maxillary sinus resulting in moderate hemorrhage opacification of the sinus chamber. Mild to moderate overlying left mid facial soft tissue swelling is also present. Facial Bones: Normal remaining facial bony structures. No visualized destructive process. Mandible/TMJ: Normal. Orbital Contents: Normal globes, extraocular muscles, optic nerves, intraconal and extraconal spaces. Normal lamina papyracea. Visualized Paranasal Sinuses: Normal. Visualized Mastoid Air Cells: Normal. CT/Sinus/Facial Bone IMPRESSION: 1. Acute oblique minimally displaced fractures are present in the anterior and posterior norris of the left maxillary sinus resulting in moderate hemorrhage opacification of the sinus chamber. 2. Mild to moderate overlying left mid facial soft tissue swelling is also present. Electronically Signed: Devendra Coon MD at 12:14 EDT ,
--- NOTE | 2021-12-29 10:31 | ED.VIS.FALL ---
HPI HPI - Fall History of Present Illness Chief Complaint: Fall Detail of Chief Complaint: Fall with head injury and injury to left elbow and left knee Informant: patient Narrative Narrative: Patient presents to the emergency department after sustaining a fall this morning. Patient states that she went to visit her sister to feed her this morning. Patient was coming out of the patient's room where there is normal carpet and walked into the hallway where there is carpet and her foot caught on the carpet and she fell injuring her head. Patient had a small nosebleed from the left side of her nose. Patient also sustained an injury to her left knee and a skin tear to her left elbow. Patient has been ambulatory since the fall. Patient has remote history of fall with intracranial hemorrhage. Patient currently on aspirin and no other blood thinners. She denies any neck pain. She denies paresthesias in extremities. She denies chest pain. She denies abdominal pain. Patient unsure of her last tetanus. Tetanus Immunization: Unknown 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 Microcalcification of right breast on mammogram Paroxysmal atrial fibrillation Rheumatic mitral stenosis with insufficiency Seborrheic keratosis Stenosis of right carotid artery Syncope Traumatic subdural hematoma (03/17/20) Tremor Tremor Type 2 diabetes mellitus Home Medications aspirin 81 mg tablet,delayed release (Adult Aspirin Regimen) 81 mg PO DAILY [facility] 07/29/17 [History Last Taken Unknown] blood sugar diagnostic 03/17/20 [History Last Taken Unknown] cyanocobalamin (vitamin B-12) 1,000 mcg capsule 1,000 mcg PO DAILY 04/27/20 [History Last Taken Unknown] bismuth subsalicylate 262 mg tablet (Pepto-Bismol) 2 tab PO Q30-60M 05/01/20 [History Last Taken Unknown] blood sugar diagnostic ([place] Verio test strips) #100 ea 08/21/20 [Rx Last Taken Unknown] rosuvastatin 40 mg tablet (Crestor) 40 mg PO QHS cholesterol #90 tabs 01/08/21 [Rx Last Taken Unknown] sitagliptin 100 mg tablet 100 mg PO DAILY diabetes #90 tabs 06/03/21 [Rx Last Taken Unknown] metformin 500 mg tablet 1,000 mg PO BID diabetes #180 tabs 06/13/21 [Rx Last Taken Unknown] hydrochlorothiazide 12.5 mg tablet 12.5 mg PO DAILY #90 tabs 07/08/21 [Rx Last Taken Unknown] citalopram 10 mg tablet 10 mg PO DAILY 12/10/21 [History Last Taken Unknown] levothyroxine 75 mcg tablet 75 mcg PO QDAY thyroid #90 tabs 12/12/21 [Rx Last Taken Unknown] metoprolol tartrate 25 mg tablet 12.5 mg PO BID 3 months #90 tabs 12/27/21 [Rx Last Taken Unknown] Allergy/AdvReac Type Severity Reaction Status Date / Time cortisone Allergy Hives Verified 12/29/21 09:41 erythromycin base Allergy Swelling Verified 12/29/21 09:41 Family History Mother Heart disease Myocardial infarction Father Tuberculosis Brother Diabetes Sister Heart disease Surgical History H/O coronary artery bypass surgery (11/23/09) History of carpal tunnel release History of hysterectomy History of knee surgery History of mitral valve replacement with bioprosthetic valve (11/23/09) history right simple mastectomy (04/26/19) history right stereotactic biopsy (04/05/19) Social History Smoking Status: Never smoker alcohol intake: never substance use type: does not use what type of physical activity do you participate in: none ROS ROS ED Review of Systems ROS Unobtainable: other Constitutional Constitutional ED: Reports lethargy; Denies chills, fever(s), sweats or weight loss Eyes Eyes: Denies blurry vision, change in vision or diplopia ENT ENT ED: Denies rhinorrhea or sore throat Cardiovascular Cardiovascular: Reports chest pain and racing heartbeat; Denies orthopnea Respiratory/Chest Respiratory/Chest: Reports dyspnea and dyspnea on exertion; Denies cough, orthopnea or sputum Gastrointestinal Gastrointestinal: Denies abdominal pain, diarrhea, nausea or vomiting Genitourinary Genitourinary ED: Denies dysuria, hematuria or urinary frequency Musculoskeletal Musculoskeletal: Reports other Details: Ecchymosis and bruising to left knee anterior to patella ; Denies arthralgias, back pain, myalgias or neck pain Integumentary Reports other Details: Skin tear left elbow ; Denies abscess, Abrasions or rash Neurologic Neurologic: Reports headache(s); Denies weakness Psychiatric Psychiatric: Denies anxiety, depression or suicidal thoughts Endocrine Endocrinology: Denies polydipsia, polyphagia or polyuria Hematologic/Lymphatic Hematologic/Lymphatic: Denies easy bleeding, easy bruising or lymphadenopathy Allergic/Immunologic Allergic/Immunologic ED: Denies mouth swelling, tongue swelling or urticaria EXAM Physical Exam Const Vital Signs: 12/29/21 09:39 12/29/21 09:42 Temperature 97.4 F L Temperature Source Temporal Pulse Rate 70 Respiratory Rate 16 Respiratory Effort Normal Respiratory Depth Normal Respiratory Pattern Normal Blood Pressure 129/67 H Blood Pressure Mean 87 Pulse Ox 98 Oxygen Delivery Method Room Air Room Air Positive well nourished and well developed General Appearance ED: well developed and NAD HEENT Reports TM's clear and moist mucous membranes HEENT Narrative: No evidence of trauma to her head. There is no septal hematoma. Patient does have soft tissue swelling over the left maxillary sinus with tenderness to palpation over the area. normocephalic and atraumatic; Negative for trauma or tenderness Tympanic Membrane ED: Yes TM's clear Eyes PERRL and EOMs intact bilaterally General Eye ED: Negative for pale conjunctiva or scleral icterus Neck no lymphadenopathy, supple and no JVD General: Negative for tenderness Chest Wall inspection of chest normal and palpation of chest normal Chest: Negative for tenderness Resp normal respiratory effort and clear to auscultation bilaterally Effort and Inspection: Negative for respiratory distress or pain with movement Auscultation: Negative for rhonchi, wheezes or diminished lung sounds Cardio regular rate, regular rhythm, S1 normal heart sound, S2 normal heart sound and no murmurs Peripheral Pulses: pulses 2+ throughout GI normal to inspection, nondistended, normoactive bowel sounds, soft to palpation, non-tender, non-distended and no masses Back/Spine no CVA tenderness and no thoracic nor lumbar tenderness Extremity Extremity Narrative: Left knee-patient has soft tissue swelling as well as ecchymosis and bruising anterior to the patella with some tenderness palpation over the patella of the knee. Ligamentously stable. She has good range of motion flexion extension of the knee. Neurovascular intact distally. General Extremety ED: Negative for edema General Extremity: Negative for edema Neuro oriented x3, CN's II-XII intact bilaterally, no sensory deficits noted and gait normal Sensorium / Orientation: awake, alert, oriented to person, oriented to place and oriented to time Motor Exam: strength 5/5 throughout and strength abnormal Psych mental status grossly normal Skin no rashes or lesions noted and no wounds Skin Narrative: Patient has a superficial skin tear over the posterior lateral aspect of the left elbow that has been Steri-Stripped and dressed and looks well approximated with no active bleeding. She has no bony tenderness on exam. MDM MDM MDM Narrative Medical decision making narrative: CT scan of the brain without contrast was unremarkable. CT scan of the facial bones was positive for left maxillary sinus fracture relatively nondisplaced with some hemorrhage in the sinus. X-rays of the left knee were obtained and showed no fractures. I did discuss case with ENT on-call Dr. Colón who did not recommend antibiotics for this and he would be happy to see her from follow-up in the office. Patient was given a dose of Tylenol and does not anything stronger for pain. She is advised to keep ice over her left knee and face 3-4 times a day for the the next 2 days. Patient to follow-up with ENT and primary care physician. Lab Data Attestation: I reviewed the patient's lab results. Radiography Diagnostic Testing: Clinical Impression(s) from Imaging Studies Brain CT 12/29/21 10:30 IMPRESSION: 1. Acute fractures of the anterior and posterior norris of the left maxillary sinus with a moderate amount of hemorrhage within the sinus chamber. 2. Chronic involutional changes of the brain. Electronically Signed: Devendra Coon MD at 12:06 EDT , Facial/Sinus 12/29/21 10:30 IMPRESSION: 1. Acute oblique minimally displaced fractures are present in the anterior and posterior norris of the left maxillary sinus resulting in moderate hemorrhage opacification of the sinus chamber. 2. Mild to moderate overlying left mid facial soft tissue swelling is also present. Electronically Signed: Devendra Coon MD at 12:14 EDT Reading Location ID and State: [facility] / [place] , Service support , Knee X-Ray 12/29/21 10:30 IMPRESSION: 1. Degenerative arthrosis. 2. Moderate prepatellar soft tissue swelling. Electronically Signed: Devendra Coon MD at 12:03 EDT , 4 view x-rays left knee obtained interpreted by myself as no acute fractures or dislocations. She has soft tissue swelling over the area of the patella. Radiology in agreement. Discharge Plan Triage Chief Complaint: Fall ED Provider: Bhargav Rosen Dx/Rx/DC Orders Clinical Impression: Fall, Closed fracture of maxillary sinus, Contusion of knee, left, Closed head injury Instructions: ED Soft Tissue Contusion, ED Facial Fracture, ED Mechanical Fall, ED Head Injury (Adult) Prescriptions: No Action aspirin [Adult Aspirin Regimen] 81 mg tablet,delayed release (DR/EC) 81 mg PO DAILY Hold Instructions: subdural hematoma cyanocobalamin (vitamin B-12) 1,000 mcg capsule 1,000 mcg PO DAILY Pepto-Bismol 262 mg tablet 2 tab PO Q30-60M Rx Instructions: do not exceed 16 tabs per 24 hrs citalopram 10 mg tablet 10 mg PO DAILY hydrochlorothiazide 12.5 mg tablet 12.5 mg PO DAILY Qty: 90 1RF metoprolol tartrate 25 mg tablet 12.5 mg PO BID 90 Days Qty: 90 2RF (DME) blood sugar diagnostic 1 EACH strip 0 ( .Route .MEDSUPPLY Rx Instructions: check glucose daily for type 2 DM (DME) OneTouch Verio test strips Strip See Rx Instructions .ROUTE .MEDSUPPLY Qty: 100 3RF Rx Instructions: check blood glucose once daily for type 2 DM rosuvastatin [Crestor] 40 mg tablet 40 mg PO QHS Qty: 90 3RF sitagliptin 100 mg tablet 100 mg PO DAILY Qty: 90 3RF metformin 500 mg tablet 1,000 mg PO BID Qty: 180 2RF levothyroxine 75 mcg tablet 75 mcg PO QDAY Qty: 90 3RF Primary Care Provider: Renetta Barr Referrals: Joseph Johnson MD [Med Staff - Active Staff] - 1 Week Renetta Barr MD [Primary Care Provider] - 5-7 Days Disposition Disposition: Home, Self Care
[2021-12-29] MEDS: Acetaminophen 325 MG Tablet 650 MG PO (12:37)
== END 2021-12-29 12:41 | disposition home or self-care (01) ==
PROVIDERS: Emergency Provider Emergency Medicine; PCP Internal Medicine; Visit Provider Emergency Medicine
DX: S02.40DA Maxillary fracture, left side, initial encounter for closed fracture (principal); I48.0 Paroxysmal atrial fibrillation; E11.9 Type 2 diabetes mellitus without complications; S51.012A Laceration without foreign body of left elbow, initial encounter; S80.02XA Contusion of left knee, initial encounter; R04.0 Epistaxis; W18.09XA Striking against other object with subsequent fall, initial encounter; I25.10 Atherosclerotic heart disease of native coronary artery without angina pectoris; I10 Essential (primary) hypertension; E78.5 Hyperlipidemia, unspecified; E03.9 Hypothyroidism, unspecified; Z79.82 Long term (current) use of aspirin; Z79.84 Long term (current) use of oral hypoglycemic drugs; Z79.890 Hormone replacement therapy; Z79.899 Other long term (current) drug therapy; Z95.1 Presence of aortocoronary bypass graft
CPT/HCPCS: 70450; 70486; 73564; 90715; 99283

== ENCOUNTER → 2022-02-11 | Outpatient (CLI) | payer MEDICARE, SELFPAY ==
--- NOTE | 2022-02-11 | LES_PTH ---
PATIENT: LAKEISHA SHIRLEY LOC: [facility] U#:[id number] AGE/SX: 86/F ROOM: RE02/11/[address]: Dr. Lynn Grover MD : [id number] BED: DIS: 02/11/2022 SPEC #: [id number] RECD: 02/11/22 11:14 STATUS: AIDE REGINO #: [id number] DENNIS: 02/11/22 00:[address]: Lynn Grover DEPT: SURGICAL PATHOLOGY RECD BY: Beatriz Johnson ENTERED: 02/11/22 12:10 SP TYPE: Lesion OTHR DR: Dr. Renetta Barr MD Tissues: Skin of arm Procedures: Surgery Specimen Level IV HEADER OPERATION: Excision of left arm skin lesion PRE-OP DIAGNOSIS: Left arm skin lesion TISSUE SUBMITTED: Left arm skin lesion, long suture - lateral, short suture - superior MICROSCOPIC DIAGNOSIS Skin lesion of left arm, biopsy: Verrucoid keratosis with associated cutaneous horn. Solar elastosis. See comment. AM:westley 02/12/2022 COMMENT The lesion appears to have been completely excised in the planes examined. MICROSCOPIC DESCRIPTION Slides are reviewed. GROSS DESCRIPTION Received in fixative is one container labeled with the patient's name and designated left arm skin lesion. The specimen consists of a velasco-white skin ellipse measuring 2.5 x 1 x 1 cm. The skin surface shows a velasco, raised lesion measuring 1 x 1 x 0.8 cm. The specimen is oriented as follows: long suture - lateral, short suture - superior. The specimen is inked as follows: superior tip - yellow, inferior tip - green, lateral margin - black and medial margin - blue. The specimen is serially sectioned and submitted entirely in two cassettes. Cassette 2 contains the entire lesion. / JAMMIE:westley 02/11/2022 TC:5 CPT: 52919
== END | disposition home or self-care (01) ==
LOC: LABSPEC 11:19
PROVIDERS: PCP Internal Medicine; Referring Provider Surgery; Visit Provider Surgery
DX: L57.0 Actinic keratosis (principal); L57.8 Other skin changes due to chronic exposure to nonionizing radiation
CPT/HCPCS: 88305

== ENCOUNTER → 2022-03-25 | Outpatient (CLI) | payer MEDICARE, SELFPAY ==
[2022-03-25 12:34] LABS: Absolute Lymphocyte Count 2.48 X10^3/uL (0.83-4.51); Absolute Neutrophil Count 3.3 X10^3/uL (2.0-7.7); Basophil# 0.07 X10^3/uL; Eosinophil# 0.16 X10^3/uL; Eosinophils% 2.4 % (0-5); Hematocrit 38.9 % (37-47); Hemoglobin 13.2 g/dL (12.0-15.0); Lymphocyte # 2.48 X10^3/ul (0.83-4.51); Lymphocyte % 36.8 % (19-41); Mean Corp Hgb Conc 33.9 g/dL (32-36); Mean Corpuscular Hgb 30.3 pg (27.0-32.0); Mean Corpuscular Volume 89.4 fL (81-99); Mean Platelet Vol. 11.6 fl (6.2-12.0); Monocyte# 0.73 X10^3/uL; Monocyte% 10.8 % (0-10); NRBC Flagged by Analyzer 0 % (0-5); Neutrophil # 3.28 X10^3/uL (2.7-7.7); Neutrophil % 48.9 % (47-70); Platelet Count 271 K/mm3 (150-450); RBC Distribution Width SD 42.3 fl (35.1-43.9); Red Blood Count 4.35 M/mm3 (4.2-5.4); White Blood Count 6.7 K/mm3 (4.4-11.0)
[2022-03-25 12:37] LABS: Anion Gap 6 (5-15); BUN 15 mg/dL (7-18); BUN/Creat Ratio 13.5 RATIO (10-20); Calcium,Total 9.9 mg/dL (8.5-10.1); Chloride 104 mmol/L (98-107); Creatinine, Serum 1.11 mg/dL (0.55-1.02); EST Glomerular Filtration Rate 50 mL/min (>60); Est Glom Filt Rate - Afr Amer 60 mL/min (>60); Glucose 147 mg/dL (74-106); Potassium 4.4 mmol/L (3.5-5.1); Sodium Level 138 mmol/L (136-145)
[2022-03-25 12:44] LABS: Hemoglobin A1c 6.8 % (3.8-5.6)
== END | disposition home or self-care (01) ==
LOC: BIMLAB 08:10
PROVIDERS: PCP Internal Medicine; Visit Provider Internal Medicine
DX: E11.69 Type 2 diabetes mellitus with other specified complication (principal); I05.2 Rheumatic mitral stenosis with insufficiency
CPT/HCPCS: 36415; 80048; 83036; 85025

== ENCOUNTER → 2022-05-01 | Outpatient (CLI) | payer MEDICARE, SELFPAY ==
--- NOTE | 2022-05-01 12:13 | MRI_ITS ---
HISTORY: Recurrent falls, unsteady gait. TECHNIQUE: Multiplanar and multisequence MR images of the cervical spine were obtained before and after the intravenous administration of 10 cc Clariscan. 273 images. COMPARISON: CT 03/17/2020. FINDINGS: VERTEBRAE: Vertebral body heights maintained. Degenerative bone marrow endplate changes of C3-4, C4-5, C5-6, and C6-7. Artifact from midline sternotomy. VERTEBRAL ALIGNMENT: Straightening of the cervical lordosis without significant anterior or posterior subluxation. SPINAL CANAL: Cervical cord signal and morphology within normal limits without enhancing lesion. No epidural collection or enhancing intradural extramedullary mass. SOFT TISSUES: No prevertebral fluid collection. INTERVERTEBRAL DISCS: C2-3: No significant posterior disc protrusion, central canal stenosis, or foraminal narrowing. C3-4: Posterior disc bulge osteophyte complex with uncovertebral and facet arthropathy resulting in minimal narrowing of the thecal sac and mild bilateral foraminal narrowing. C4-5: Moderate posterior disc bulge osteophyte complex eccentric to the right and also with a centrally extruded component in combination with uncovertebral and facet arthropathy mildly flattening the right ventral cord. Mild-moderate central canal stenosis and bilateral foraminal narrowing. C5-6: Moderate left paracentral disc protrusion effacing the left traversing and exiting nerve roots with uncovertebral and facet arthropathy resulting in moderate central canal stenosis, moderate left, and mild right foraminal narrowing. C6-7: Mild disc bulge resulting in minimal narrowing of the thecal sac and bilateral foramina. C7-T1: No significant posterior disc protrusion, central canal stenosis, or foraminal narrowing. 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 Spinal canal stenosis and foraminal narrowing at multiple levels. Electronically Signed: Radha Frank MD at 13:51 EST ,
== END | disposition home or self-care (01) ==
PROVIDERS: PCP Internal Medicine; Referring Provider Physician Assistant; Visit Provider Physician Assistant
DX: R29.6 Repeated falls (principal)
CPT/HCPCS: 72156; A9575

== ENCOUNTER → 2022-10-08 | Outpatient (CLI) | payer MEDICARE, SELFPAY ==
[2022-10-08 12:38] LABS: Thyroid Stim Hormone (TSH) 0.16 uIU/mL (0.358-3.74)
[2022-10-08 12:44] LABS: Vitamin B12 219 pg/mL (211-911)
[2022-10-08 12:45] LABS: AST(SGOT) 18 U/L (15-37); Alanine Aminotransfer ALT/SGPT 19 U/L (13-56); Albumin, Serum 3.6 g/dL (3.2-5.0); Alkaline Phosphatase 61 U/L (45-117); Bilirubin, Direct 0.18 mg/dL (0.00-0.30); Cholesterol 105 mg/dL (200); Globulin 3.8 g/dL (2.2-4.2); High Density Lipoprotein 39 mg/dL; Protein, Total 7.4 g/dL (6.4-8.2); Triglycerides 138 mg/dL; Very Low Density Lipoprotein 28 mg/dL (5-40)
== END | disposition home or self-care (01) ==
LOC: BIMLAB 08:40
PROVIDERS: Internal Medicine Cardiovascular Disease; PCP Internal Medicine; Referring Provider Internal Medicine; Visit Provider Internal Medicine
DX: E11.69 Type 2 diabetes mellitus with other specified complication (principal); E78.00 Pure hypercholesterolemia, unspecified; E03.9 Hypothyroidism, unspecified; E53.8 Deficiency of other specified B group vitamins
CPT/HCPCS: 36415; 80061; 80076; 82607; 83036; 84443

== ENCOUNTER → 2022-11-28 | Outpatient (CLI) | payer MEDICARE, SELFPAY ==
--- NOTE | 2022-11-28 07:19 | BI_ITS ---
MAMMOGRAPHY - UNILATERAL SCREENING: LEFT BREAST REASON FOR EXAM: Female, 87 years old. Routine annual screening examination (unilateral). PERTINENT HISTORY: Personal history of breast cancer. Prior right mastectomy. Prior left excisional breast biopsy. Daughter with breast cancer. TECHNIQUE: Digital unilateral breast ariela (3D mammographic acquisition) in the CC and MLO projections. 2-D mediolateral oblique (MLO) and craniocaudad (CC) views of both breasts were obtained. CAD: Full Field Digital Mammography with Computer Added Detection was performed. COMPARISON: Comparison is made with prior study dated November 26, 2021 and November 01, 2020. FINDINGS: Breast Composition: There are scattered areas of fibroglandular density. There are no dominant masses or suspicious calcifications. A tissue clip marker is once again seen in the upper lateral aspect of the left breast. No other significant abnormalities are identified. There has been no significant change since the prior study. BI/SCREEN MAMM (CAD) W/ARIELA UNI L IMPRESSION: Stable unilateral screening mammogram. Yearly follow-up mammogram recommended. (A) ASSESSMENT CATEGORY: BIRADS Category 2: Benign. A letter regarding these results will be sent to the patient by the facility within 30 days. Approximately 10% of breast cancers are not detected by mammography. A normal mammogram should not delay biopsy of a clinically suspicious abnormality. [id number] Electronically Signed: Abel Mcmahon MD at 10:04 EDT ,
== END | disposition home or self-care (01) ==
LOC: OPBI 07:18
PROVIDERS: PCP Internal Medicine; Referring Provider Internal Medicine; Visit Provider Internal Medicine
DX: Z12.31 Encounter for screening mammogram for malignant neoplasm of breast (principal)
CPT/HCPCS: 77063; 77067

== ENCOUNTER → 2022-12-19 | Outpatient (CLI) | payer MEDICARE, SELFPAY ==
--- NOTE | 2022-12-19 06:35 | ECHOCS_ITS ---
Reason For Study: Chest Pain Procedure This was a 2D Doppler, Color Flow transthoracic echocardiogram. The study was technically difficult. Contrast injection was performed. Exam performed in department. Left Ventricle Normal LV size. Left ventricular systolic function is normal. The estimated ejection fraction is 60 %. Stage 2 diastolic dysfunction. No regional wall motion abnormalities noted. Right Ventricle Normal RV size. Normal systolic function. Atria Normal left atrium. Normal right atrium. Mitral Valve There is mild mitral annular calcification. Bioprosthetic mitral valve. Tricuspid Valve Normal tricuspid valve. Mild tricuspid valve insufficiency. Pulmonary artery systolic pressure is 36 mmHg. Aortic Valve Normal aortic valve. Trisinus/trileaflet aortic valve. Pulmonic Valve Normal pulmonic valve. Pericardium/Pleural No pericardial effusion. Medication 20 gauge I.V. with prn adaptor inserted into left arm. Diluted definity 2ml given slow IV push to enhance endocardial definition. MMode/2D Measurements & Calculations LVIDd: 4.2 cm IVSd: 0.68 cm Ao root diam: 2.7 cm LVIDs: 2.4 cm LVPWd: 0.66 cm LA dimension: 3.4 cm RVDd: 3.8 cm FS: 41.9 % LAV(MOD-bp): 52.9 ml LVAd ap4: 22.4 cm2 SV(MOD-sp4): 40.7 ml LAV(MOD-bp) Indexed: 32.9 ml/m2 LVLd ap4: 6.7 cm LAV(MOD-sp2): 63.5 ml EDV(MOD-sp4): 62.5 ml LAV(MOD-sp4): 44.2 ml EDV(sp4-el): 63.6 ml LVAs ap4: 12.2 cm2 LVLs ap4: 5.7 cm ESV(MOD-sp4): 21.9 ml ESV(sp4-el): 22.2 ml EF(MOD-sp4): 65.0 % EF(sp4-el): 65.0 % SV(sp4-el): 41.4 ml LA A4 area: 17.0 cm2 RA A4 area: 13.3 cm2 Time Measurements MV dec time: 0.23 sec Doppler Measurements & Calculations MV E max luther: 158.4 cm/sec Lat Peak E' Luther: 7.6 cm/sec Med Peak E' Luther: 4.4 cm/sec MV A max luther: 88.6 cm/sec E/E' lat: 21.0 E/E' med: 35.8 MV E/A: 1.8 MV V2 max: 175.6 cm/sec MV P1/2t max luther: 175.6 cm/sec Ao V2 max: 146.2 cm/sec MV max P.3 mmHg MV P1/2t: 68.0 msec Ao max P.6 mmHg MV V2 mean: 81.0 cm/sec Ao V2 mean: 109.5 cm/sec MV mean P.3 mmHg MV dec slope: 756.1 cm/sec2 Ao mean P.3 mmHg MV V2 VTI: 46.5 cm MVA(P1/2t): 3.2 cm2 Ao V2 VTI: 40.7 cm AV (velocity ratio): 0.87 LV V1 max: 129.8 cm/sec PA V2 max: 85.1 cm/sec PI dec slope: 178.7 cm/sec2 LV V1 max P.7 mmHg PA V2 mean: 64.6 cm/sec LV V1 mean P.9 mmHg LV V1 mean: 91.5 cm/sec LV V1 VTI: 35.6 cm TR max luther: 289.6 cm/sec TR max P.6 mmHg ECHO/Echo Complete W/ Contrast Interpretation Summary Normal LV size. Left ventricular systolic function is normal. The estimated ejection fraction is 60 %. There is mild mitral annular calcification. Bioprosthetic mitral valve. Stage 2 diastolic dysfunction. Ordering Physician: Keke Ortiz Referring Physician: David Boyle Performed By: Vincent Hoover RCS
--- NOTE | 2022-12-19 16:38 | STRESSREP ---
Stress Test Report Pharmacologic myocardial perfusion stress test. 87-year-old lady with a history of chest pain. Resting EKG demonstrates sinus rhythm with a rate of 72 bpm. Resting blood pressure is 112/50 mmHg. 0.4 mg of regadenoson was infused per usual protocol followed by rapid intravenous saline flush injection. Continuous EKG monitoring was performed. The maximum heart rate was 100 bpm which was 74% of max impacted heart rate the maximum workload was 1 metabolic equivalent. At rest there were no ST or T wave changes noted to suggest ischemia and at peak infusion nonspecific ST changes were noted which did not meet the criteria for ischemia. No clinical angina is noted. The final blood pressure was 130/60 mmHg. Myocardial perfusion protocol. 10.8 mCi of technetium 99m sestamibi was injected at rest. 0.4 mg of regadenoson was infused per usual protocol. At peak infusion 34.4 mCi of technetium 99m sestamibi was injected stress images were obtained stress and rest images were reconstructed and compared in the short axis vertical long and horizontal long axis. Gated images were also obtained. Perfusion SPECT analysis: Review of the stress images demonstrate normal uptake of tracer noted in all areas of the myocardium. The resting images similar demonstrated normal uptake of tracer noted in all areas of the myocardium. No areas of reversibility are noted to suggest ischemia and no previous infarct is noted. Gated SPECT analysis: The gated ejection fraction is 90% plus. Conclusion: Normal pharmacologic myocardial perfusion stress test. Preserved ejection fraction.
== END | disposition home or self-care (01) ==
LOC: CVS 06:33
PROVIDERS: PCP Internal Medicine; Referring Provider Internal Medicine Cardiovascular Disease; Visit Provider Internal Medicine Cardiovascular Disease
DX: I05.2 Rheumatic mitral stenosis with insufficiency (principal); R07.9 Chest pain, unspecified; Z95.1 Presence of aortocoronary bypass graft
CPT/HCPCS: 78452; 93017; 93306; A9500; Q9957; A4216; C8929; J2785

== ENCOUNTER → 2023-01-13 | Outpatient (CLI) | payer MEDICARE, SELFPAY ==
[2023-01-13 13:03] LABS: Anion Gap 4 (5-15); BUN 18 mg/dL (7-18); BUN/Creat Ratio 15.9 RATIO (10-20); Calcium,Total 9.7 mg/dL (8.5-10.1); Chloride 104 mmol/L (98-107); Creatinine, Serum 1.13 mg/dL (0.55-1.02); EST Glomerular Filtration Rate 49 mL/min (>60); Est Glom Filt Rate - Afr Amer 59 mL/min (>60); Glucose 135 mg/dL (74-106); Sodium Level 140 mmol/L (136-145); Thyroid Stim Hormone (TSH) 4.65 uIU/mL (0.358-3.74)
== END | disposition home or self-care (01) ==
LOC: BIMLAB 08:34
PROVIDERS: PCP Internal Medicine; Referring Provider Internal Medicine; Visit Provider Internal Medicine
DX: I10 Essential (primary) hypertension (principal); E03.9 Hypothyroidism, unspecified
CPT/HCPCS: 36415; 80048; 84443

== ENCOUNTER → 2023-04-20 | Outpatient (CLI) | payer MEDICARE, SELFPAY ==
[2023-04-20 12:53] LABS: Absolute Lymphocyte Count 2.03 X10^3/uL (0.83-4.51); Absolute Neutrophil Count 4.4 X10^3/uL (2.0-7.7); Basophil# 0.04 X10^3/uL; Basophil% 0.6 % (0-1); Eosinophil# 0.17 X10^3/uL; Eosinophils% 2.4 % (0-5); Hematocrit 39.9 % (37-47); Hemoglobin 12.6 g/dL (12.0-15.0); Lymphocyte # 2.03 X10^3/ul (0.83-4.51); Lymphocyte % 28.2 % (19-41); Mean Corp Hgb Conc 31.6 g/dL (32-36); Mean Corpuscular Hgb 29.2 pg (27.0-32.0); Mean Corpuscular Volume 92.6 fL (81-99); Mean Platelet Vol. 10.9 fl (6.2-12.0); Monocyte# 0.61 X10^3/uL; Monocyte% 8.5 % (0-10); NRBC Flagged by Analyzer 0 % (0-5); Neutrophil # 4.35 X10^3/uL (2.7-7.7); Neutrophil % 60.2 % (47-70); Platelet Count 297 K/mm3 (150-450); RBC Distribution Width SD 44.5 fl (35.1-43.9); Red Blood Count 4.31 M/mm3 (4.2-5.4); White Blood Count 7.2 K/mm3 (4.4-11.0)
[2023-04-20 12:54] LABS: Vitamin B12 251 pg/mL (211-911)
[2023-04-20 13:02] LABS: AST(SGOT) 14 U/L (15-37); Alanine Aminotransfer ALT/SGPT 17 U/L (13-56); Albumin, Serum 3.7 g/dL (3.2-5.0); Alkaline Phosphatase 79 U/L (45-117); Bilirubin, Direct 0.15 mg/dL (0.00-0.30); Cholesterol 116 mg/dL (200); Globulin 3.7 g/dL (2.2-4.2); High Density Lipoprotein 39 mg/dL; Protein, Total 7.4 g/dL (6.4-8.2); Triglycerides 177 mg/dL; Very Low Density Lipoprotein 35 mg/dL (5-40)
[2023-04-20 13:13] LABS: Anion Gap 4 (5-15); BUN 16 mg/dL (7-18); BUN/Creat Ratio 13.3 RATIO (10-20); Calcium,Total 9.2 mg/dL (8.5-10.1); Chloride 104 mmol/L (98-107); EST Glomerular Filtration Rate 45 mL/min (>60); Est Glom Filt Rate - Afr Amer 55 mL/min (>60); Glucose 276 mg/dL (74-106); Potassium 4.7 mmol/L (3.5-5.1); Sodium Level 136 mmol/L (136-145); Thyroid Stim Hormone (TSH) 0.85 uIU/mL (0.358-3.74)
== END | disposition home or self-care (01) ==
LOC: BIMLAB 09:25
PROVIDERS: Internal Medicine Cardiovascular Disease; PCP Internal Medicine; Visit Provider Internal Medicine
DX: E78.00 Pure hypercholesterolemia, unspecified (principal); E11.9 Type 2 diabetes mellitus without complications; K21.9 Gastro-esophageal reflux disease without esophagitis; E03.9 Hypothyroidism, unspecified; E53.8 Deficiency of other specified B group vitamins
CPT/HCPCS: 36415; 80048; 80061; 80076; 82607; 84443; 85025

== ENCOUNTER → 2023-07-22 | Outpatient (CLI) | payer MEDICARE, SELFPAY ==
[2023-07-22 12:39] LABS: Vitamin B12 239 pg/mL (211-911)
[2023-07-22 13:06] LABS: Anion Gap 7 (5-15); BUN 26 mg/dL (7-18); BUN/Creat Ratio 18.4 RATIO (10-20); Calcium,Total 9.5 mg/dL (8.5-10.1); Chloride 102 mmol/L (98-107); Creatinine, Serum 1.41 mg/dL (0.55-1.02); EST Glomerular Filtration Rate 38 mL/min (>60); Est Glom Filt Rate - Afr Amer 46 mL/min (>60); Glucose 215 mg/dL (74-106); Potassium 4.4 mmol/L (3.5-5.1); Sodium Level 134 mmol/L (136-145); Thyroid Stim Hormone (TSH) 1.43 uIU/mL (0.358-3.74)
[2023-07-22 13:14] LABS: Hemoglobin A1c 7.1 % (3.8-5.6)
== END | disposition home or self-care (01) ==
LOC: BIMLAB 09:43
PROVIDERS: PCP Internal Medicine; Visit Provider Internal Medicine
DX: E53.8 Deficiency of other specified B group vitamins (principal); E11.69 Type 2 diabetes mellitus with other specified complication; E03.9 Hypothyroidism, unspecified
CPT/HCPCS: 36415; 80048; 82607; 83036; 84443

== ENCOUNTER → 2023-10-21 | Outpatient (CLI) | payer MEDICARE, SELFPAY ==
[2023-10-21 12:51] LABS: Cholesterol 97 mg/dL (200); High Density Lipoprotein 43 mg/dL; Triglycerides 91 mg/dL; Very Low Density Lipoprotein 18 mg/dL (5-40)
[2023-10-21 12:53] LABS: AST(SGOT) 19 U/L (15-37); Alanine Aminotransfer ALT/SGPT 17 U/L (13-56); Albumin, Serum 3.8 g/dL (3.2-5.0); Alkaline Phosphatase 59 U/L (45-117); Anion Gap 5 (5-15); BUN 14 mg/dL (7-18); BUN/Creat Ratio 12.7 RATIO (10-20); Bilirubin, Direct 0.22 mg/dL (0.00-0.30); Calcium,Total 9.9 mg/dL (8.5-10.1); Chloride 104 mmol/L (98-107); EST Glomerular Filtration Rate 50 mL/min (>60); Est Glom Filt Rate - Afr Amer 61 mL/min (>60); Glucose 150 mg/dL (74-106); Protein, Total 7.8 g/dL (6.4-8.2); Sodium Level 136 mmol/L (136-145)
== END | disposition home or self-care (01) ==
LOC: BIMLAB 09:26
PROVIDERS: Nurse Practitioner Family; PCP Internal Medicine; Visit Provider Internal Medicine
DX: E11.69 Type 2 diabetes mellitus with other specified complication (principal); E78.00 Pure hypercholesterolemia, unspecified
CPT/HCPCS: 36415; 80053; 80061; 82248

== ENCOUNTER → 2023-12-02 | Outpatient (CLI) | payer MEDICARE, SELFPAY ==
--- NOTE | 2023-12-02 10:18 | BI_ITS ---
MAMMOGRAPHY - UNILATERAL SCREENING: LEFT BREAST REASON FOR EXAM: Female, 88 years old. Routine annual screening examination (unilateral). PERTINENT HISTORY: Personal history of breast cancer. Prior right mastectomy. Daughter with breast cancer. TECHNIQUE: Digital unilateral breast ariela (3D mammographic acquisition) in the CC and MLO projections. 2-D mediolateral oblique (MLO) and craniocaudad (CC) views of both breasts were obtained. CAD: Full Field Digital Mammography with Computer Added Detection was performed. COMPARISON: Comparison is made with prior study November 28, 2022 and November 26, 2021. FINDINGS: Breast Composition: There are scattered areas of fibroglandular density. There are no dominant masses or suspicious calcifications. A tissue clip marker is once again seen in the upper lateral aspect of the left breast. No other significant abnormalities are identified. There has been no significant change since the prior study. BI/SCREEN MAMM (CAD) W/ARIELA UNI L IMPRESSION: Stable unilateral screening mammogram. Yearly follow-up mammogram recommended. (A) ASSESSMENT CATEGORY: BIRADS Category 2: Benign. A letter regarding these results will be sent to the patient by the facility within 30 days. Approximately 10% of breast cancers are not detected by mammography. A normal mammogram should not delay biopsy of a clinically suspicious abnormality. [id number] Electronically Signed: Abel Mcmahon MD at 11:54 EDT ,
== END | disposition home or self-care (01) ==
LOC: OPBI 10:17
PROVIDERS: PCP Internal Medicine; Referring Provider Internal Medicine; Visit Provider Internal Medicine
DX: Z12.31 Encounter for screening mammogram for malignant neoplasm of breast (principal); Z85.3 Personal history of malignant neoplasm of breast; Z90.11 Acquired absence of right breast and nipple; Z80.3 Family history of malignant neoplasm of breast
CPT/HCPCS: 77063; 77067

== ENCOUNTER → 2024-04-14 | Outpatient (CLI) | payer MEDICARE, SELFPAY ==
[2024-04-14 12:13] LABS: Absolute Lymphocyte Count 1.96 X10^3/uL (0.83-4.51); Absolute Neutrophil Count 4.3 X10^3/uL (2.0-7.7); Basophil# 0.05 X10^3/uL; Basophil% 0.7 % (0-1); Eosinophil# 0.15 X10^3/uL; Eosinophils% 2.1 % (0-5); Hematocrit 40.4 % (37-47); Lymphocyte # 1.96 X10^3/ul (0.83-4.51); Lymphocyte % 27.3 % (19-41); Mean Corp Hgb Conc 32.2 g/dL (32-36); Mean Corpuscular Hgb 28.9 pg (27.0-32.0); Mean Corpuscular Volume 89.8 fL (81-99); Mean Platelet Vol. 11.3 fl (6.2-12.0); Monocyte# 0.74 X10^3/uL; Monocyte% 10.3 % (0-10); NRBC Flagged by Analyzer 0 % (0-5); Neutrophil # 4.27 X10^3/uL (2.7-7.7); Neutrophil % 59.5 % (47-70); Platelet Count 259 K/mm3 (150-450); RBC Distribution Width CV 13.3 % (11.6-14.6); RBC Distribution Width SD 43.5 fl (35.1-43.9); White Blood Count 7.2 K/mm3 (4.4-11.0)
[2024-04-14 12:42] LABS: Microalbumin:Creatinine Ratio 183.3 mg/g CRE (<30 mg/g CRE)
[2024-04-14 12:54] LABS: AST(SGOT) 17 U/L (15-37); Alanine Aminotransfer ALT/SGPT 18 U/L (13-56); Albumin, Serum 3.8 g/dL (3.2-5.0); Alkaline Phosphatase 62 U/L (45-117); Anion Gap 5 (5-15); BUN 15 mg/dL (7-18); BUN/Creat Ratio 11.8 RATIO (10-20); Calcium,Total 9.9 mg/dL (8.5-10.1); Chloride 105 mmol/L (98-107); Cholesterol 105 mg/dL (200); Creatinine, Serum 1.27 mg/dL (0.55-1.02); EST Glomerular Filtration Rate 42 mL/min (>60); Est Glom Filt Rate - Afr Amer 51 mL/min (>60); Globulin 3.8 g/dL (2.2-4.2); Glucose 132 mg/dL (74-106); High Density Lipoprotein 41 mg/dL; Potassium 5.1 mmol/L (3.5-5.1); Protein, Total 7.6 g/dL (6.4-8.2); Sodium Level 137 mmol/L (136-145); Triglycerides 100 mg/dL; Very Low Density Lipoprotein 20 mg/dL (5-40)
== END | disposition home or self-care (01) ==
LOC: BIMLAB 08:51
PROVIDERS: PCP Internal Medicine; Referring Provider Internal Medicine; Visit Provider Internal Medicine
DX: I10 Essential (primary) hypertension (principal); E11.69 Type 2 diabetes mellitus with other specified complication
CPT/HCPCS: 36415; 80053; 80061; 82043; 82248; 82570; 83036; 85025

== ENCOUNTER 2024-06-03 15:29 | Observation (INO) | payer MEDICARE, SELFPAY ==
[2024-06-03] VITALS (9 sets, daily range): BP systolic 112–140; BP diastolic 44–61; PULSE 67–85; RESP 16–20; TEMP 36.2; O2SAT 94–99; BMI 21.2
--- NOTE | 2024-06-03 15:42 | EKG12_ITS ---
Test Reason : Blood Pressure : */* mmHG Vent. Rate : 79 BPM Atrial Rate : 79 BPM P-R Int : 150 ms QRS Dur : 78 ms QT Int : 428 ms P-R-T Axes : 105 49 45 degrees QTcB Int : 490 ms Normal sinus rhythm Prolonged QT Abnormal ECG Confirmed by Александр Quintana ([id number]), editor publications DEL WILSON ([id number]) on 06/06/2024 10:26:45 AM Referred By: Confirmed By: Александр Quintana
--- NOTE | 2024-06-03 15:49 | EX.ED.DYSGE1 ---
HPI <MERLINE Musa - Last Filed: 06/03/24 19:17> History of Present Illness Chief Complaint: Dizziness Narrative Narrative: 88-year-old female with PMH of HTN, HLD, DM2, CABG, mitral valve replacement, A-fib, hypothyroidism, essential tremor presents with nausea vomiting and room spinning dizziness x 4 days. She called EMS when symptoms began and her vital signs were normal and she declined transport. The spinning sensation occurs with head movements causing nausea and sometimes vomiting. She has no chest pain, shortness of breath, headache, or focal motor or sensory changes. She went to urgent care this morning and was prescribed meclizine. The spinning sensation and vomiting became worse despite medication so she called EMS. Patient's family member arrived to provide more history. She states the patient has been under a lot of stress because her had a major stroke on and is now in a penitentiary. She lives at home and is independent in her great-grandson also lives there. 4 days ago the patient developed dizzy spells. She fell and hit her head on the floor. It was not witnessed but her great grandson heard her fall and called EMS who evaluated and she declined transport due to long ER wait times. She continued to have intermittent dizzy spells and vomiting and loose stools so her family member thought it could be norovirus or something similar and was pushing hydration. She was very weak and almost fell again several times. A family member took her to [facility] ER and her vital signs were normal in triage but she left due to the wait. She was seen at [facility] urgent care this morning and had negative strep testing and pending COVID/flu testing and was prescribed meclizine but after taking that dizzy symptoms became worse. 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 Cancer of right breast Essential (primary) hypertension Anxiety and depression Malignant neoplasm of lower-outer quadrant of right female breast Breast cancer Microcalcification of right breast on mammogram Change in bowel habit Seborrheic keratosis Depression Type 2 diabetes mellitus Paroxysmal atrial fibrillation Atherosclerosis of coronary artery of [place] heart without angina pectoris Rheumatic mitral stenosis with insufficiency Diabetes type 2, uncontrolled Tremor Syncope IBS (irritable bowel syndrome) GERD (gastroesophageal reflux disease) Hypothyroidism Hyperlipemia Home Medications ?Medication ?Instructions ?Recorded ?Last Taken ?Type aspirin 81 mg tablet,delayed 81 mg PO DAILY heart health 07/29/17 Unknown History release (Adult Aspirin Regimen) blood sugar diagnostic 03/17/20 Unknown History acetaminophen 325 mg capsule 325 mg PO ONCE PRN pain 01/06/22 Unknown History (Tylenol) lorazepam 0.5 mg tablet 0.5 mg PO DAILY PRN anxiety #3 tabs 04/09/22 Unknown Rx blood sugar diagnostic (OneTouch #100 ea 06/02/22 Unknown Rx Verio test strips) lancets 33 gauge (Unilet Lancet) #100 ea 06/02/22 Unknown Rx levothyroxine 75 mcg tablet See Rx Instructions .Route 06/04/23 Unknown Rx .COMPLEX #90 tabs hydrochlorothiazide 12.5 mg tablet See Rx Instructions .Route 06/30/23 Unknown Rx .COMPLEX #90 tabs rosuvastatin 40 mg tablet (Crestor) 40 mg PO QHS cholesterol #90 tabs 07/02/23 Unknown Rx citalopram 10 mg tablet 10 mg PO DAILY #90 tabs 07/22/23 Unknown Rx metoprolol tartrate 25 mg tablet 12.5 mg (1/2 x 25 mg) PO BID 3 01/09/24 Unknown Rx months #90 tabs sitagliptin phosphate 100 mg tablet 100 mg PO DAILY diabetes #90 tabs 01/18/24 Unknown Rx metformin 500 mg tablet,extended 1,000 mg (2 x 500 mg) PO BID 3 04/20/24 Unknown Rx release 24 hr months #360 tabs Allergy/AdvReac Type Severity Reaction Status Date / Time cortisone Allergy Hives Verified 04/20/24 08:56 erythromycin base Allergy Swelling Verified 04/20/24 08:56 Family History Mother Heart disease Myocardial infarction Father Tuberculosis Brother Diabetes Sister Heart disease Surgical History history right simple mastectomy (04/26/19) history right stereotactic biopsy (04/05/19) History of mitral valve replacement with bioprosthetic valve (11/23/09) H/O coronary artery bypass surgery (11/23/09) History of carpal tunnel release History of knee surgery History of hysterectomy Social History Smoking Status: Never smoker alcohol intake: never substance use type: does not use what type of physical activity do you participate in: none ROS <MERLINE Musa - Last Filed: 06/03/24 19:17> ROS ED ROS Narrative Constitutional: Negative for fever, chills, malaise. CVS: Negative for chest pain, syncope. Respiratory: Negative for shortness of breath. GI: Positive for nausea, vomiting. No abdominal pain. Neuro: Negative for headache, motor/sensory dysfunction. EXAM <MERLINE Musa - Last Filed: 06/03/24 19:17> Physical Exam Narrative Exam Narrative: CONST: Patient appears uncomfortable and then began dry heaving. EYES: Normal inspection. PERRL, EOMI, bidirectional horizontal nystagmus. NECK: Normal inspection. RESP: No respiratory distress, CTAB. CVS: Regular rate and rhythm, no murmur, no gallop. ABD: Soft and nontender, no guarding or rebound, nondistended. SKIN: Color normal, no rash, warm, dry, intact. EXTREMITIES: Normal appearance, chronic resting tremor of right arm from essential tremor. NEURO: Alert and answering questions appropriately. PSYCH: Normal affect. Const Vital Signs: 06/03/24 15:30 06/03/24 16:43 06/03/24 17:00 Temperature 97.2 F L Temperature Source Oral Pulse Rate 84 85 Respiratory Rate 18 16 Blood Pressure 140/44 H 133/49 H Blood Pressure Mean 76 77 Pulse Ox 99 95 Oxygen Delivery Method Room Air Room Air 06/03/24 18:00 06/03/24 19:00 06/03/24 19:40 Temperature 97.2 F L Temperature Source Pulse Rate 67 69 69 Respiratory Rate 20 H 19 H 19 H Blood Pressure 139/52 H 112/52 L 112/52 L Blood Pressure Mean 81 72 72 Pulse Ox 95 94 94 Oxygen Delivery Method Room Air Room Air 06/03/24 20:00 06/03/24 22:00 06/03/24 23:00 Temperature Temperature Source Pulse Rate 72 72 73 Respiratory Rate 18 20 H 18 Blood Pressure 136/61 H 128/58 H 123/53 H Blood Pressure Mean 86 81 76 Pulse Ox 97 96 Oxygen Delivery Method Room Air Room Air Room Air <Dr. Catarino Hart DO - Last Filed: 06/03/24 23:49> Physical Exam Const Vital Signs: 06/03/24 15:30 06/03/24 16:43 06/03/24 17:00 Temperature 97.2 F L Temperature Source Oral Pulse Rate 84 85 Respiratory Rate 18 16 Blood Pressure 140/44 H 133/49 H Blood Pressure Mean 76 77 Pulse Ox 99 95 Oxygen Delivery Method Room Air Room Air 06/03/24 18:00 06/03/24 19:00 06/03/24 19:40 Temperature 97.2 F L Temperature Source Pulse Rate 67 69 69 Respiratory Rate 20 H 19 H 19 H Blood Pressure 139/52 H 112/52 L 112/52 L Blood Pressure Mean 81 72 72 Pulse Ox 95 94 94 Oxygen Delivery Method Room Air Room Air 06/03/24 20:00 06/03/24 22:00 06/03/24 23:00 Temperature Temperature Source Pulse Rate 72 72 73 Respiratory Rate 18 20 H 18 Blood Pressure 136/61 H 128/58 H 123/53 H Blood Pressure Mean 86 81 76 Pulse Ox 97 96 Oxygen Delivery Method Room Air Room Air Room Air MDM <MERLINE Musa - Last Filed: 06/03/24 19:17> [facility] Narrative Medical decision making narrative: History gathered from: Patient and family members Differential: Central versus peripheral vertigo, viral illness, arrhythmia 88-year-old female was evaluated for 4 days of vertigo and nausea and vomiting. No headache. No chest pain or shortness of breath. No history of similar symptoms. She was given meclizine by urgent care but symptoms worsened after taking it. She is awake alert and hemodynamically stable. She would occasionally dry heaves during the exam. She has bidirectional horizontal nystagmus. No focal neurological deficits. Patient was treated with IV fluids and Zofran without improvement so was given IV Ativan. Labs mild leukocytosis of 11.8, chronic mild kidney disease with creatinine 1.26, glucose 179 consistent with diabetes, otherwise normal. EKG is nonischemic and troponin is negative. CTA head and neck is negative. Patient's vomiting has resolved. The nurse states when she tried to assist her to the bathroom she was very off balance and could not walk independently. I discussed the case with hospitalist for admission. Consults: Hospitalist Attending note: I have personally performed a face to face assessment of the patient and have reviewed the ANNE note. I personally made/approved the management plan and take responsibility for the patient management. I performed a substantive portion of the visit including all aspects of the following. My guy findings include: Worsening vertigo symptoms 4 days ago. No headaches. Has sore throat slight left ear discomfort prior. No drainage. No history of similar. Went to urgent care today prescribed meclizine however symptoms worsened afterwards. Nausea and vomiting. No stroke history. Exam no focal deficits however there was bidirectional nystagmus of the eyes. NIH 0. Patient initially treated with Zofran with no improvement of symptoms therefore IV Ativan ordered. Stroke workup initial including CT angiogram head and neck. Will require admission to rule out central causes of vertigo. Lab Data Attestation: I reviewed the patient's lab results. Labs: Laboratory Results - last 24 hr 06/03/24 06/03/24 15:53 17:50 WBC 11.8 H RBC 4.49 Hgb 13.1 Hct 40.1 MCV 89.3 MCH 29.2 MCHC 32.7 RDW Std Deviation 43.6 RDW Coeff of [place] 13.3 Plt Count 241 MPV 11.0 Immature Gran % (Auto) 0.200 Neut % (Auto) 45.2 L Lymph % (Auto) 40.7 [place] % (Auto) 13.3 H Eos % (Auto) 0.3 Baso % (Auto) 0.3 Absolute Neuts (auto) 5.3 Absolute Lymphs (auto) 4.79 H Nucleated RBC % 0 Differential Comment SCANNED Diff Path Review May foll Sodium 136 Potassium 3.9 Chloride 105 Carbon Dioxide 22.0 Anion Gap 9 BUN 16 Creatinine 1.26 H Estim Creat Clear Calc 27.68 Est GFR (MDRD) Af Amer 52 L Est GFR (MDRD) Non-Af 43 L BUN/Creatinine Ratio 12.7 Glucose 179 H Calcium 9.8 Total Bilirubin 0.70 Direct Bilirubin 0.22 AST 26 ALT 21 Alkaline Phosphatase 58 Troponin I High Sens 13 Total Protein 7.6 Albumin 3.7 Globulin 3.9 TSH 3.330 Urine Color Yellow Urine Clarity Clear Urine pH 6.5 Ur Specific [place] 1.010 Urine Protein 30 H Urine Glucose (UA) 50 H Urine Ketones Negative Urine Occult Blood 10 H Urine Nitrite Negative Urine Bilirubin Negative Urine Urobilinogen Normal Ur Leukocyte Esterase Negative Urine RBC 0 SEEN Urine WBC 0 SEEN Ur Squamous Epith Cells 0 SEEN Urine Bacteria 0 SEEN Urine Mucus 0 SEEN Radiography Diagnostic Testing: Clinical Impression(s) from Imaging Studies Head/Neck CTA 06/03/24 16:08 IMPRESSION: Normal CTA Head and neck with contrast. Electronically Signed: Jeramy Figueroa MD at 18:50 EST , Chest X-Ray 06/03/24 16:28 IMPRESSION: No acute disease status post median sternotomy and CABG Electronically Signed: Duarte Davila MD at 17:32 EST , EKG Initial EKG: Attestation: I personally reviewed and interpreted this EKG as follows: Interpretation: Sinus Rhythm and No Acute Injury Pattern Comments: Normal sinus rhythm at 79 bpm Prolonged QTc of 490 ms No acute ischemic changes <Dr. Catarino Hart, DO - Last Filed: 06/03/24 23:49> [facility] MDM Narrative Medical decision making narrative: History gathered from: Patient and family members Differential: Central versus peripheral vertigo, viral illness, arrhythmia 88-year-old female was evaluated for 4 days of vertigo and nausea and vomiting. No headache. No chest pain or shortness of breath. No history of similar symptoms. She was given meclizine by urgent care but symptoms worsened after taking it. She is awake alert and hemodynamically stable. She would occasionally dry heaves during the exam. She has bidirectional horizontal nystagmus. No focal neurological deficits. Patient was treated with IV fluids and Zofran without improvement so was given IV Ativan. Labs mild leukocytosis of 11.8, chronic mild kidney disease with creatinine 1.26, glucose 179 consistent with diabetes, otherwise normal. EKG is nonischemic and troponin is negative. CTA head and neck is negative. Patient's vomiting has resolved. The nurse states when she tried to assist her to the bathroom she was very off balance and could not walk independently. I discussed the case with hospitalist for admission. Consults: Hospitalist Attending note: I have personally performed a face to face assessment of the patient and have reviewed the ANNE note. I personally made/approved the management plan and take responsibility for the patient management. I performed a substantive portion of the visit including all aspects of the following. My guy findings include: Worsening vertigo symptoms 4 days ago. No headaches. Has sore throat slight left ear discomfort prior. No drainage. No history of similar. Went to urgent care today prescribed meclizine however symptoms worsened afterwards. Nausea and vomiting. No stroke history. Exam no focal deficits however there was bidirectional nystagmus of the eyes. NIH 0. Patient initially treated with Zofran with no improvement of symptoms therefore IV Ativan ordered. Stroke workup initial including CT angiogram head and neck. Will require admission to rule out central causes of vertigo. CT angiogram negative. Symptoms stable left breast with pertinent return of symptoms. Discussed with hospitalist for admission. Lab Data Labs: Laboratory Results - last 24 hr 06/03/24 06/03/24 15:53 17:50 WBC 11.8 H RBC 4.49 Hgb 13.1 Hct 40.1 MCV 89.3 MCH 29.2 MCHC 32.7 RDW Std Deviation 43.6 RDW Coeff of [place] 13.3 Plt Count 241 MPV 11.0 Immature Gran % (Auto) 0.200 Neut % (Auto) 45.2 L Lymph % (Auto) 40.7 [place] % (Auto) 13.3 H Eos % (Auto) 0.3 Baso % (Auto) 0.3 Absolute Neuts (auto) 5.3 Absolute Lymphs (auto) 4.79 H Nucleated RBC % 0 Differential Comment SCANNED Diff Path Review May foll Sodium 136 Potassium 3.9 Chloride 105 Carbon Dioxide 22.0 Anion Gap 9 BUN 16 Creatinine 1.26 H Estim Creat Clear Calc 27.68 Est GFR (MDRD) Af Amer 52 L Est GFR (MDRD) Non-Af 43 L BUN/Creatinine Ratio 12.7 Glucose 179 H Calcium 9.8 Total Bilirubin 0.70 Direct Bilirubin 0.22 AST 26 ALT 21 Alkaline Phosphatase 58 Troponin I High Sens 13 Total Protein 7.6 Albumin 3.7 Globulin 3.9 TSH 3.330 Urine Color Yellow Urine Clarity Clear Urine pH 6.5 Ur Specific [place] 1.010 Urine Protein 30 H Urine Glucose (UA) 50 H Urine Ketones Negative Urine Occult Blood 10 H Urine Nitrite Negative Urine Bilirubin Negative Urine Urobilinogen Normal Ur Leukocyte Esterase Negative Urine RBC 0 SEEN Urine WBC 0 SEEN Ur Squamous Epith Cells 0 SEEN Urine Bacteria 0 SEEN Urine Mucus 0 SEEN Radiography Diagnostic Testing: Clinical Impression(s) from Imaging Studies Head/Neck CTA 06/03/24 16:08 IMPRESSION: Normal CTA Head and neck with contrast. Electronically Signed: Jeramy Figueroa MD at 18:50 EST , Chest X-Ray 06/03/24 16:28 IMPRESSION: No acute disease status post median sternotomy and CABG Electronically Signed: Duarte Davila MD at 17:32 EST , Discharge Plan Triage Chief Complaint: Dizziness ED Midlevel Provider: Joyce Pleitez ED Provider: Catarino Hart Dx/Rx/DC Orders Clinical Impression: Vertigo, Nausea and vomiting, Ataxic gait Prescriptions: No Action aspirin [Adult Aspirin Regimen] 81 mg tablet,delayed release (DR/EC) 81 mg PO DAILY acetaminophen [Tylenol] 325 mg capsule 325 mg PO ONCE PRN (Reason: pain) citalopram 10 mg tablet 10 mg PO DAILY Qty: 90 3RF metformin 500 mg tablet extended release 24 hr 1,000 mg PO BID 90 Days Qty: 360 1RF (DME) blood sugar diagnostic 1 EACH strip 0 ( .Route .MEDSUPPLY Rx Instructions: check glucose daily for type 2 DM lorazepam 0.5 mg tablet 0.5 mg PO DAILY PRN (Reason: anxiety) Qty: 3 0RF (DME) OneTouch Verio test strips Strip See Rx Instructions .ROUTE .MEDSUPPLY Qty: 100 3RF Rx Instructions: check blood glucose once daily for type 2 DM (DME) lancets [Unilet Lancet] 33 gauge misc See Rx Instructions .Route Qty: 100 0RF Rx Instructions: As directed levothyroxine 75 mcg tablet See Rx Instructions .ROUTE .COMPLEX Qty: 90 3RF Dose Instruction: TAKE 1 TABLET BY MOUTH DAILY except on sundays. take ONE-HALF TABLET on sundays Rx Instructions: TAKE 1 TABLET BY MOUTH DAILY except on sundays. take ONE-HALF TABLET on sundays hydrochlorothiazide 12.5 mg tablet See Rx Instructions .ROUTE .COMPLEX Qty: 90 1RF Dose Instruction: TAKE 1 TABLET BY MOUTH DAILY Rx Instructions: TAKE 1 TABLET BY MOUTH DAILY rosuvastatin [Crestor] 40 mg tablet 40 mg PO QHS Qty: 90 3RF metoprolol tartrate 25 mg tablet 12.5 mg PO BID 90 Days Qty: 90 1RF sitagliptin phosphate 100 mg tablet 100 mg PO DAILY Qty: 90 3RF Primary Care Provider: Renetta Barr Referrals: Renetta Barr MD [Primary Care Provider] - Print Language: Irish
[2024-06-03] MEDS: 0.9% Normal Saline (1000mL) 1,000 ML 1000 ML IV (15:51)
[2024-06-03] MEDS: Ondansetron 4 MG/2 ML Vial IV (15:51)
[2024-06-03 16:08] LABS: Absolute Lymphocyte Count 4.79 X10^3/uL (0.83-4.51); Absolute Neutrophil Count 5.3 X10^3/uL (2.0-7.7); Basophil# 0.04 X10^3/uL; Basophil% 0.3 % (0-1); Eosinophil# 0.04 X10^3/uL; Eosinophils% 0.3 % (0-5); Hematocrit 40.1 % (37-47); Hemoglobin 13.1 g/dL (12.0-15.0); Lymphocyte # 4.79 X10^3/ul (0.83-4.51); Lymphocyte % 40.7 % (19-41); Mean Corp Hgb Conc 32.7 g/dL (32-36); Mean Corpuscular Hgb 29.2 pg (27.0-32.0); Mean Corpuscular Volume 89.3 fL (81-99); Monocyte# 1.56 X10^3/uL; Monocyte% 13.3 % (0-10); NRBC Flagged by Analyzer 0 % (0-5); Neutrophil # 5.32 X10^3/uL (2.7-7.7); Neutrophil % 45.2 % (47-70); POSITIVE DIFFERENTIAL YES; Platelet Count 241 K/mm3 (150-450); RBC Distribution Width CV 13.3 % (11.6-14.6); RBC Distribution Width SD 43.6 fl (35.1-43.9); Red Blood Count 4.49 M/mm3 (4.2-5.4); White Blood Count 11.8 K/mm3 (4.4-11.0)
--- NOTE | 2024-06-03 16:08 | CT_ITS ---
STUDY: CTA HEAD AND NECK WITH CONTRAST REASON FOR EXAM: Female, 88 years old. vertigo, fell 3 days ago hitting head, hx SDH, breast cancer RADIATION DOSAGE (If Supplied By Facility): CTDIvol = ( 26.98 ) mGy, DLP = ( 1374.94 ) mGycm TECHNIQUE: CT angiography was performed with a multi-detector CT scanner. Data acquisition was obtained from the skull base through the vertex following intravenous administration of IV 100mL [id number]-300. MIP images were reconstructed from the axial data set. Post-processing of the angiographic images was performed, with multiplanar reformation and 3D reconstruction. Individualized dose optimization techniques were used for this CT. The protocol utilizes one or more of the following dose reduction techniques: automated exposure control, adjustment of mA and/or kV according to patient size,and/or use of iterative reconstruction technique. COMPARISON: CT brain December 29, 2021. FINDINGS: Normal bilateral petrous carotid arteries. Normal right cavernous carotid artery with a normal supraclinoid bifurcation. Normal left cavernous carotid artery with a normal supraclinoid bifurcation. Normal right A1 segments of the anterior cerebral artery. Normal left A1 segments of the anterior cerebral artery. Normal intact anterior communicating artery (ACOM). Normal bilateral A2 segments of the anterior cerebral arteries. Normal right M1 and M2 segments of the middle cerebral arteries, with a normal M1 bifurcation. Normal left M1 and M2 segments of the middle cerebral arteries, with a normal M1 bifurcation. There is non-visualization of the right posterior communicating artery (PCOM). There is non-visualization of the left posterior communicating artery (PCOM). Normal bilateral vertebral arteries. Normal basilar artery with a normal basilar bifurcation. The visualized bilateral superior cerebellar (SCA) arteries are normal. Normal bilateral P1, P2 and visualized P3 segments of the posterior cerebral arteries. There is no demonstrated aneurysm of the [place]. There is no demonstrated abnormality of the visualized brain. AORTIC ARCH: Normal visualized aortic arch. Normal origins of the brachiocephalic, left common carotid, and left subclavian arteries. RIGHT CAROTID ARTERIES: Normal right common carotid artery (CCA). Normal right common carotid bulb. There is extensive atherosclerotic plaque formation of the origin of the right internal carotid artery with an estimated stenosis of greater than 70%. Normal visualized cervical portion of the right internal carotid artery. Normal origin of the right external carotid artery (ECA). LEFT CAROTID ARTERIES: Normal left common carotid artery (CCA). Normal left common carotid bulb. There is mild atherosclerotic plaque formation of the origin of the left internal carotid artery with less than 50% cross sectional diameter stenosis. Normal visualized cervical portion of the left internal carotid artery. Normal origin of the left external carotid artery (ECA). VERTEBRAL ARTERIES: Normal bilateral vertebral arteries. CT/CTA Head AND Neck W/ Contrast IMPRESSION: Normal CTA Head and neck with contrast. Electronically Signed: Jeramy Figueroa MD at 18:50 EST ,
[2024-06-03 16:12] LABS: Differential Indicated SCAN CRITERIA MET
[2024-06-03] MEDS: LORazepam 2 MG/ML Syringe 1 MG IV (16:12)
[2024-06-03 16:28] LABS: Anion Gap 9 (5-15); BUN 16 mg/dL (7-18); BUN/Creat Ratio 12.7 RATIO (10-20); Calcium,Total 9.8 mg/dL (8.5-10.1); Chloride 105 mmol/L (98-107); Creatinine, Serum 1.26 mg/dL (0.55-1.02); EST Glomerular Filtration Rate 43 mL/min (>60); Est Glom Filt Rate - Afr Amer 52 mL/min (>60); Estimated Creatinine Clearance 27.68 ml/min; Glucose 179 mg/dL (74-106); Potassium 3.9 mmol/L (3.5-5.1); Sodium Level 136 mmol/L (136-145); Troponin-I HS 13 pg/mL (3.0-54.0)
--- NOTE | 2024-06-03 16:28 | RAD_ITS ---
STUDY: X-RAY CHEST REASON FOR EXAM: Female, 88 years old. dizzy, weak TECHNIQUE: AP portable COMPARISON: November 30, 2009 FINDINGS: The lungs are clear and expanded. There is no demonstrated pleural abnormality. Normal size heart. Normal mediastinum and maya. Normal visualized pulmonary arteries. Mildly calcified aortic arch and descending thoracic aorta. Postop change status post median sternotomy and CABG Normal visualized thoracic spine. Normal visualized ribs, clavicles, and shoulders. There is no demonstrated abnormality of the visualized soft tissue structures of the upper abdomen. RAD/Chest 1 View (Portable) IMPRESSION: No acute disease status post median sternotomy and CABG Electronically Signed: Duarte Davila MD at 17:32 EST ,
[2024-06-03 16:44] LABS: Differential Comment SCANNED
[2024-06-03 17:55] LABS: Bacteria 0 SEEN /hpf (None Seen); Mucous, Urine 0 SEEN /hpf (<or=2+); Red Blood Cells-Urine 0 SEEN /hpf (0-5); Squamous Epithelial Cells - UA 0 SEEN /hpf (5-10); White Blood Cells 0 SEEN /hpf (0-5)
[2024-06-03 18:07] LABS: Color, Urine Yellow (Yellow); Glucose, Dipstick 50 mg/dl (Normal); Ketone-Dipstick Negative (Negative); Leukocyte Esterase-Dipstick Negative /ul (Negative); Nitrite-Dipstick Negative (Negative); Occult Blood-Urine 10 /ul (Negative); Protein-Dipstick 30 mg/dl (Negative); Urine Bilirubin Dipstick Negative (Negative); Urine Clarity Clear (Clear); Urine Urobilinogen Normal (Normal); Urine pH 6.5 (5.0 - 8.0)
--- NOTE | 2024-06-03 18:17 | ED.RN ---
[facility] Patient states she normally ambulates at home by self. Nurse Reviewer socks were placed. Patient was unsteady during transfer to [facility] and was leaning to right side. Patient was able to urinate and give sample with staff assistance. Patient was assisted to bed with staff.
--- NOTE | 2024-06-03 19:14 | HP.PCM.HOS_ITS ---
HPI - General General Date of Admission: 06/03/24 Date of Service: 06/03/24 Chief Complaint: Persistent dizziness with nausea and vomiting HPI Narrative LAKEISHA SHIRLEY, is a 88 F who presented to [facility] ED on 06/03/2024 with persistent dizziness and nausea with vomiting. Patient has history significant for A-fib not on anticoagulation, CAD with CABG and type 2 diabetes. She lives at home with her but her unfortunately had a major stroke on and is at [facility] for rehab currently. Patient is independent at baseline. She notes that she has had dizziness with the sensation of room spinning and nausea with vomiting for the past 4 days. She has had a few minor falls due to this. EMS went to her house twice in the last 3 days but she did not want to come into the hospital. However with the third EMS visit today she was agreeable to come in. She also was taken to urgent care by family member earlier today and prescribed meclizine but this did not help. On arrival to the ED she was normotensive and otherwise hemodynamically stable on room air. CBC and BMP were unremarkable. CTA head/neck was unremarkable. Chest x-ray unremarkable. Given her history and risk factors, hospitalist was contacted for admission. I saw the patient at bedside in the ED, granddaughter was present. Patient was fatigued appearing but otherwise sitting up comfortably in bed and answering questions appropriately. She currently denies any dizziness or lightheadedness at rest. Notes that she has been going into the [place] [facility] to see her to help feed him over the past several days without significant issue. However, states she has had minimal appetite and has not been eating much for a week or so. Granddaughter notes that family has noticed that patient seems very stressed since her 's stroke. Patient denies prior history of dizziness like this. Unclear as to why she is not on a blood thinner for paroxysmal A- fib. She otherwise denies any recent infectious symptoms. No other acute concerns. [facility] Medical History (Updated 06/03/24 @ 19:37 by Marixa Freitas) Anxiety Diabetes Non-smoker Atrial fibrillation Myocardial infarct Hypertension Migraines Chronic diarrhea Essential tremor Flu vaccine need Insomnia Skin tag Frequent falls Cellulitis Insect bites Hyperkalemia Tremor B12 deficiency Traumatic subdural hematoma (03/17/20) Stenosis of right carotid artery Cancer of right breast Essential (primary) hypertension Anxiety and depression Malignant neoplasm of lower-outer quadrant of right female breast Breast cancer Microcalcification of right breast on mammogram Change in bowel habit Seborrheic keratosis Depression Type 2 diabetes mellitus Paroxysmal atrial fibrillation Atherosclerosis of coronary artery of [place] heart without angina pectoris Rheumatic mitral stenosis with insufficiency Diabetes type 2, uncontrolled Tremor Syncope IBS (irritable bowel syndrome) GERD (gastroesophageal reflux disease) Hypothyroidism Hyperlipemia Home Medications ?Medication ?Instructions ?Recorded ?Last Taken ?Type aspirin 81 mg tablet,delayed 81 mg PO DAILY heart health 07/29/17 Unknown History release (Adult Aspirin Regimen) blood sugar diagnostic 03/17/20 Unknown History acetaminophen 325 mg capsule 325 mg PO ONCE PRN pain 01/06/22 Unknown History (Tylenol) lorazepam 0.5 mg tablet 0.5 mg PO DAILY PRN anxiety #3 tabs 04/09/22 Unknown Rx blood sugar diagnostic (OneTouch #100 ea 06/02/22 Unknown Rx Verio test strips) lancets 33 gauge (Unilet Lancet) #100 ea 06/02/22 Unknown Rx levothyroxine 75 mcg tablet See Rx Instructions .Route 06/04/23 Unknown Rx .COMPLEX #90 tabs hydrochlorothiazide 12.5 mg tablet See Rx Instructions .Route 06/30/23 Unknown Rx .COMPLEX #90 tabs rosuvastatin 40 mg tablet (Crestor) 40 mg PO QHS cholesterol #90 tabs 07/02/23 Unknown Rx citalopram 10 mg tablet 10 mg PO DAILY #90 tabs 07/22/23 Unknown Rx metoprolol tartrate 25 mg tablet 12.5 mg (1/2 x 25 mg) PO BID 3 01/09/24 Unknown Rx months #90 tabs sitagliptin phosphate 100 mg tablet 100 mg PO DAILY diabetes #90 tabs 01/18/24 Unknown Rx metformin 500 mg tablet,extended 1,000 mg (2 x 500 mg) PO BID 3 04/20/24 Unknown Rx release 24 hr months #360 tabs Allergy/AdvReac Type Severity Reaction Status Date / Time cortisone Allergy Hives Verified 04/20/24 08:56 erythromycin base Allergy Swelling Verified 04/20/24 08:56 Family History Mother Heart disease Myocardial infarction Father Tuberculosis Brother Diabetes Sister Heart disease Surgical History history right simple mastectomy (04/26/19) history right stereotactic biopsy (04/05/19) History of mitral valve replacement with bioprosthetic valve (11/23/09) H/O coronary artery bypass surgery (11/23/09) History of carpal tunnel release History of knee surgery History of hysterectomy Social History Smoking Status: Never smoker alcohol intake: never substance use type: does not use what type of physical activity do you participate in: none ROS Constitutional Constitutional: Reports fatigue and weakness; Denies chills or fever(s) Eyes Eyes: Denies blurry vision, change in vision or double vision ENT HEENT: Denies nasal congestion or nasal discharge Cardiovascular Cardiovascular: Denies chest pain, lightheadedness, palpitations or rapid heart rate Respiratory/Chest Respiratory/Chest: Denies cough, shortness of breath at rest or wheezing Gastrointestinal Gastrointestinal: Denies abdominal pain Genitourinary Genitourinary: Denies dysuria Musculoskeletal Musculoskeletal: Denies arthralgias or myalgias Neurologic Neurologic: Reports disequilibrium, dizziness and tremor(s); Denies focal weakness, headache(s), numbness or paresthesias Vital Signs Vital Signs Vital Signs: 06/03/24 15:30 06/03/24 16:43 06/03/24 17:00 Temperature 97.2 F L Temperature Source Oral Pulse Rate 84 85 Respiratory Rate 18 16 Blood Pressure 140/44 H 133/49 H Blood Pressure Mean 76 77 Pulse Ox 99 95 Oxygen Delivery Method Room Air Room Air 06/03/24 18:00 06/03/24 19:00 Temperature Temperature Source Pulse Rate 67 69 Respiratory Rate 20 H 19 H Blood Pressure 139/52 H 112/52 L Blood Pressure Mean 81 72 Pulse Ox 95 94 Oxygen Delivery Method Room Air Room Air Weight Weight: 56.2 kg Body Mass Index (BMI) 21.2 Physical Exam Const alert, oriented x3 and no apparent distress Constitutional Narrative: Elderly female, thin appearing, moderately fatigued appearing but otherwise sitting up comfortably in bed, answering questions with short appropriate responses, in no acute distress. General Appearance: cooperative and comfortable HEENT normocephalic, head/scalp atraumatic, hearing grossly normal bilaterally and nasal mucous membranes and turbinates normal HEENT Narrative: Dry mucous membranes. Eyes PERRL, EOMs intact bilaterally and conjunctivae normal Neck full ROM Chest inspection of chest normal Resp normal respiratory effort, normal air movement, no use of accessory muscles and clear to auscultation bilaterally Cardio regular rate, regular rhythm, no murmurs and peripheral pulses 2+ throughout GI normal to inspection, nondistended, normoactive bowel sounds, soft to palpation, non-tender and non-distended Back/Spine normal ROM Extremity normal to inspection, full ROM and no pedal edema Skin no rashes or lesions noted Neuro CN's II-XII intact bilaterally, moves all extremities and no focal motor deficits Coordination / Balance: [id number] test normal and [id number] test normal Speech: speech normal Motor Exam: strength 5/5 throughout Psych mental status grossly normal Psych Narrative: Flat affect. Results Lab / Micro Data 06/03/24 15:53 06/03/24 15:53 Labs: Laboratory Results - last 24 hr 06/03/24 15:53: WBC 11.8 H, RBC 4.49, Hgb 13.1, Hct 40.1, MCV 89.3, MCH 29.2, MCHC 32.7, RDW Std Deviation 43.6, RDW Coeff of Juliana 13.3, Plt Count 241, MPV 11.0, Immature Gran % (Auto) 0.200, Neut % (Auto) 45.2 L, Lymph % (Auto) 40.7, M ki % (Auto) 13.3 H, Eos % (Auto) 0.3, Baso % (Auto) 0.3, Absolute Neuts (auto) 5.3, Absolute Lymphs (auto) 4.79 H, Nucleated RBC % 0, Differential Comment SCANNED, Diff Path Review September, Sodium 136, Potassium 3.9, Chloride 105, Carbon Dioxide 22.0, Anion Gap 9, BUN 16, Creatinine 1.26 H, Estim Creat Clear Calc 27.68, Est GFR (MDRD) Af Amer 52 L, Est GFR (MDRD) Non-Af 43 L, BUN/Creatinine Ratio 12.7, Glucose 179 H, Calcium 9.8, Troponin I High Sens 13 06/03/24 17:50: Urine Color Yellow, Urine Clarity Clear, Urine pH 6.5, Ur Specific [place] 1.010, Urine Protein 30 H, Urine Glucose (UA) 50 H, Urine Ketones Negative, Urine Occult Blood 10 H, Urine Nitrite Negative, Urine Bilirubin Negative, Urine Urobilinogen Normal, Ur Leukocyte Esterase Negative, Urine RBC 0 SEEN, Urine WBC 0 SEEN, Ur Squamous Epith Cells 0 SEEN, Urine Bacteria 0 SEEN, Urine Mucus 0 SEEN Imaging Radiology Impression Head/Neck CTA 06/03/24 16:08 IMPRESSION: Normal CTA Head and neck with contrast. Electronically Signed: Jeramy Figueroa MD at 18:50 EST Reading Location ID and State: [facility] / [place] Tel , Service support , Chest X-Ray 06/03/24 16:28 IMPRESSION: No acute disease status post median sternotomy and CABG Electronically Signed: Duarte Davila MD at 17:32 EST Reading Location ID and State: [facility] / [place] Tel , Service support , Assessment & Plan Assessment/Plan (1) Vertigo: (2) Nausea and vomiting: (3) Ataxic gait: PLAN: Plan Patient is an 88-year-old female who presented with community on 06/03/2024 with persistent dizziness and nausea with vomiting. 1. Persistent dizziness with nausea and vomiting, CVA rule out ? Admit under observation status to PCU. Teleneurology consulted. Orders placed per stroke order set. CTA head/neck was unremarkable. MRI brain and echo with bubble study ordered. Lipid profile ordered. Last A1c on 04/14 7.0%. TSH on admit normal. PT/OT/case management consulted. Continue home aspirin and high intensity statin. 2. Acute stress state with history of anxiety/depression ? Patient reports significant stress with anxiety since her had a major stroke on . She has been going to the [place] [facility] at [facility] regularly to see him but family notes she has seemed more anxious than her normal. Continue home citalopram. Chronic medical conditions: ? Paroxysmal A-fib: Follows with [facility]. Not on anticoagulation it appears due to age and fall risk. Holding home Lopressor for permissive hypertension. ? History of CAD with CABG, hypertension, hyperlipidemia, history of mitral replacement: Continue home aspirin and statin. Holding home Lopressor and hydrochlorothiazide for permissive hypertension. ? Type 2 diabetes mellitus: Last A1c 7.0% in March. Holding home oral diabetic meds. Will treat with sliding scale insulin with meals while inpatient. ? CKD stage IIIa: Creatinine 1.26 on admit, at baseline. ? Essential tremor: Noted. Holding home Lopressor as noted above. ? Hypothyroidism: TSH normal on admit. Continue home Synthroid. DVT prophylaxis: SCDs CODE STATUS: DNR CCA, DNI Expected disposition: TBD Total clinical time spent by myself addressing the patient's medical issues, reviewing all the data, and collaborating with patient's care team: 75 minutes. Charges/Coding Visit Charges Inpatient E&M: 01299 Init Hosp L3
--- NOTE | 2024-06-03 19:20 | ECHOD_ITS ---
Reason For Study: TIA/Stroke Procedure This was a 2D Doppler, Color Flow transthoracic echocardiogram. Exam performed portable in patient room. Left Ventricle Normal LV size. Left ventricular systolic function is normal. The left ventricular ejection fraction is 60 %. Stage 1 diastolic dysfunction. No regional wall motion abnormalities noted. Right Ventricle Normal RV size. Normal systolic function. Atria Normal left atrium. Normal right atrium. Mitral Valve There is mild to moderate mitral annular calcification. Mean transmitral valve gradient 3.7 mmHg. Bioprosthetic mitral valve. Tricuspid Valve Normal tricuspid valve. Mild (1+) tricuspid valve insufficiency. Pulmonary artery systolic pressure is 40 mmHg. Aortic Valve Trisinus/trileaflet aortic valve. Pulmonic Valve Normal pulmonic valve. Great Vessels Calcified aortic root. The pulmonary artery is normal size. Inferior vena cava collapse with respiration. Pericardium/Pleural No pericardial effusion. MMode/2D Measurements & Calculations LVIDd: 3.2 cm IVSd: 1.2 cm LVOT diam: 1.7 cm LVIDs: 1.7 cm LVPWd: 1.1 cm LVOT area: 2.2 cm2 RVDd: 3.3 cm FS: 46.0 % asc Aorta Diam: 2.9 cm LAV(MOD-bp): 39.6 ml LVAd ap4: 12.0 cm2 LAV(MOD-bp) Indexed: 24.9 ml/m2 LVLd ap4: 5.6 cm LAV(MOD-sp2): 27.7 ml EDV(MOD-sp4): 20.9 ml LAV(MOD-sp4): 41.7 ml EDV(sp4-el): 21.8 ml LVAs ap4: 4.8 cm2 LVLs ap4: 3.9 cm ESV(MOD-sp4): 5.1 ml ESV(sp4-el): 5.1 ml EF(MOD-sp4): 75.5 % EF(sp4-el): 76.6 % SV(MOD-sp4): 15.8 ml SV(sp4-el): 16.7 ml LA A4 area: 17.1 cm2 SI(MOD-sp4): 9.9 ml/m2 LA dimension(2D): 4.1 cm RA A4 area: 9.3 cm2 TAPSE: 0.83 cm Time Measurements MV dec time: 0.39 sec Doppler Measurements & Calculations MV E max luther: 95.2 cm/sec Lat Peak E' Luther: 8.3 cm/sec Med Peak E' Luther: 3.8 cm/sec MV A max luther: 145.5 cm/sec E/E' lat: 11.4 E/E' med: 25.2 MV E/A: 0.65 MV V2 max: 138.0 cm/sec Ao V2 max: 217.6 cm/sec MV max P.9 mmHg MV dec slope: 242.7 cm/sec2 Ao max P.6 mmHg MV V2 mean: 88.8 cm/sec Ao V2 mean: 162.1 cm/sec MV mean P.7 mmHg Ao mean P.4 mmHg MV V2 VTI: 33.3 cm Ao V2 VTI: 33.6 cm AV (velocity ratio): 1.1 MVA(VTI): 2.4 cm2 YONATHAN(I,D): 2.4 cm2 YONATHAN(V,D): 1.9 cm2 LV V1 max: 191.1 cm/sec SV(LVOT): 79.3 ml PA V2 max: 85.9 cm/sec LV V1 max P.6 mmHg LV V1 mean P.0 mmHg LV V1 mean: 153.6 cm/sec LV V1 VTI: 36.2 cm TR max luther: 305.8 cm/sec TR max P.4 mmHg ECHO/Echo Complete Interpretation Summary Normal LV size. Left ventricular systolic function is normal. The left ventricular ejection fraction is 60 %. Bioprosthetic mitral valve. Stage 1 diastolic dysfunction. Pulmonary artery systolic pressure is 40 mmHg. Ordering Physician: Shaggy Holman Referring Physician: Renetta Barr Performed By: Eileen Machado, MICHAEL, RVT
[2024-06-03 20:04] LABS: AST(SGOT) 26 U/L (15-37); Alanine Aminotransfer ALT/SGPT 21 U/L (13-56); Albumin, Serum 3.7 g/dL (3.2-5.0); Alkaline Phosphatase 58 U/L (45-117); Bilirubin, Direct 0.22 mg/dL (0.00-0.30); Globulin 3.9 g/dL (2.2-4.2); Protein, Total 7.6 g/dL (6.4-8.2)
--- NOTE | 2024-06-03 20:23 | CASEMGMT ---
Care Management Face to Face with patient for initial transition planning/care coordination assessment in the ED.? This technical report writer introduced self and role at [facility]. Patient lying in bed, alert and oriented. Patient willing to participate in assessment and is able to answer all questions appropriately.? Care providers, pharmacy, and demographics verified. Admitting Diagnosis: ataxic gait Other diagnosis history: diabetes type 2, syncope, AFIB PCP: [facility] Specialists: [place] Preferred Pharmacy: [facility] Insurance: [employer] Prescription Benefit:?yes Living Will/HPOA: Patient has both HPOA and Living Will LNOK: , granddaughter Living Arrangements: ?patient lives with her great grandson in a 2 story home.? Patient states she never uses upstairs, does use basement for laundry.? 4 steps to get in , 10 steps to basement.? Patient able to complete all ADLs, meals, laundry, cleaning and med management Transportation: patient drives DME: walker, cane, wheelchair, grab bar in bathtub, bedside commode, blood pressure cuff, pulse ox HHC: none SNF/Rehab: none Community Resources: none Behavioral Health History: anxiety and depression, currently on Celexa Patient goals: Patient wishes to discharge home. Disposition Plan: admission to acute; RN CM/SW to follow for discharge planning needs that may arise. Barbara Brooks, [employer], MACHINE [employer]
[2024-06-04] VITALS (9 sets, daily range): BP systolic 111–137; BP diastolic 55–77; PULSE 74–99; RESP 16–21; TEMP 36.1–36.6; O2SAT 95–98; BMI 17.6
[2024-06-04 01:25] LABS: Bedside Glucose 118 mg/dL (74-106)
[2024-06-04] MEDS: Levothyroxine 75 MCG Tablet PO (05:07)
[2024-06-04 06:27] LABS: Hematocrit 37.6 % (37-47); Hemoglobin 12.1 g/dL (12.0-15.0); Mean Corp Hgb Conc 32.2 g/dL (32-36); Mean Corpuscular Hgb 28.8 pg (27.0-32.0); Mean Corpuscular Volume 89.5 fL (81-99); Mean Platelet Vol. 10.6 fl (6.2-12.0); Platelet Count 219 K/mm3 (150-450); RBC Distribution Width CV 13.5 % (11.6-14.6); RBC Distribution Width SD 44.4 fl (35.1-43.9); White Blood Count 6.9 K/mm3 (4.4-11.0)
[2024-06-04 06:34] LABS: Bedside Glucose 119 mg/dL (74-106)
[2024-06-04 06:56] LABS: Anion Gap 5 (5-15); BUN 12 mg/dL (7-18); BUN/Creat Ratio 12.5 RATIO (10-20); Calcium,Total 9.2 mg/dL (8.5-10.1); Chloride 107 mmol/L (98-107); Cholesterol 77 mg/dL (200); Creatinine, Serum 0.96 mg/dL (0.55-1.02); EST Glomerular Filtration Rate 59 mL/min (>60); Est Glom Filt Rate - Afr Amer 71 mL/min (>60); Estimated Creatinine Clearance 31.08 ml/min; Glucose 121 mg/dL (74-106); High Density Lipoprotein 33 mg/dL; Sodium Level 138 mmol/L (136-145); Triglycerides 106 mg/dL; Very Low Density Lipoprotein 21 mg/dL (5-40)
[2024-06-04] MEDS: Aspirin E.C. 81 MG Tablet PO (09:11)
[2024-06-04] MEDS: Citalopram 10 MG Tablet PO (09:11)
[2024-06-04] MEDS: Glucerna Shake 120 ML LIQUID PO ×2 (09:14→11:59)
[2024-06-04] MEDS: LORazepam 1 MG Tablet 2 MG PO (10:12)
--- NOTE | 2024-06-04 10:40 | CON.PCM.NE_ITS ---
Assessment and Plan: Neuro Assessment/Plan LAKEISHA SHIRLEY is a 88 F with a past medical history of A-fib not on anticoagulation, CAD with CABG and type 2 diabetes, being evaluated by Teleneurology for dizziness. MRI Brain is negative for stroke on my review. History consistent with peripheral vertigo, suspect BPPV. Diagnosis: peripheral vertigo, suspect BPPV Plan: - PT/OT evaluation - Would refer to vestibular PT and attempt Winter- Hallpike/Epely with PT while admitted - No need to follow up with neurology - We will sign off I personally attended this patient and spent a total time of 35 minutes evaluating this patient including clinical assessment, review of chart, medical history imaging, and determining appropriate treatment and workup. HPI Consult Data Date of Consult: 06/04/24 HPI Narrative HPI Narrative: LAKEISHA SHIRLEY, is a 88 F with history of A-fib not on anticoagulation, CAD with CABG and type 2 diabetes who presents with dizziness/difficulty walking, nausea x4 days. Reports now 5 days of vertigo/room spinning sensation when she is up and trying to walk. Sensation is not present at rest, but worsens with head movements (she notices this most when lying down flat). She has had some nausea when dizzy feeling comes on. Also reports few falls/near falls with dizziness. Denies any weakness, numbness, tingling, speech problems, headache. CTA of the head/neck in the ER was unremarkable. She does have history of Afib and does not take AC. She was admitted for further work up. [facility] Medical History Anxiety Diabetes Non-smoker Atrial fibrillation Myocardial infarct Hypertension Migraines Chronic diarrhea Essential tremor Flu vaccine need Insomnia Skin tag Frequent falls Cellulitis Insect bites Hyperkalemia Tremor B12 deficiency Traumatic subdural hematoma (03/17/20) Stenosis of right carotid artery Cancer of right breast Essential (primary) hypertension Anxiety and depression Malignant neoplasm of lower-outer quadrant of right female breast Breast cancer Microcalcification of right breast on mammogram Change in bowel habit Seborrheic keratosis Depression Type 2 diabetes mellitus Paroxysmal atrial fibrillation Atherosclerosis of coronary artery of [place] heart without angina pectoris Rheumatic mitral stenosis with insufficiency Diabetes type 2, uncontrolled Tremor Syncope IBS (irritable bowel syndrome) GERD (gastroesophageal reflux disease) Hypothyroidism Hyperlipemia Home Medications ?Medication ?Instructions ?Recorded ?Last Taken ?Type aspirin 81 mg tablet,delayed 81 mg PO DAILY heart health 07/29/17 Unknown History release (Adult Aspirin Regimen) blood sugar diagnostic 03/17/20 Unknown History acetaminophen 325 mg capsule 325 mg PO ONCE PRN pain 01/06/22 Unknown History (Tylenol) lorazepam 0.5 mg tablet 0.5 mg PO DAILY PRN anxiety #3 tabs 04/09/22 Unknown Rx blood sugar diagnostic (OneTouch #100 ea 06/02/22 Unknown Rx Verio test strips) lancets 33 gauge (Unilet Lancet) #100 ea 06/02/22 Unknown Rx levothyroxine 75 mcg tablet See Rx Instructions .Route 06/04/23 Unknown Rx .COMPLEX #90 tabs hydrochlorothiazide 12.5 mg tablet See Rx Instructions .Route 06/30/23 Unknown Rx .COMPLEX #90 tabs rosuvastatin 40 mg tablet (Crestor) 40 mg PO QHS cholesterol #90 tabs 07/02/23 Unknown Rx citalopram 10 mg tablet 10 mg PO DAILY #90 tabs 07/22/23 Unknown Rx metoprolol tartrate 25 mg tablet 12.5 mg (1/2 x 25 mg) PO BID 3 01/09/24 Unknown Rx months #90 tabs sitagliptin phosphate 100 mg tablet 100 mg PO DAILY diabetes #90 tabs 01/18/24 Unknown Rx metformin 500 mg tablet,extended 1,000 mg (2 x 500 mg) PO BID 3 04/20/24 Unknown Rx release 24 hr months #360 tabs Allergy/AdvReac Type Severity Reaction Status Date / Time cortisone Allergy Hives Verified 04/20/24 08:56 erythromycin base Allergy Swelling Verified 04/20/24 08:56 Family History Mother Heart disease Myocardial infarction Father Tuberculosis Brother Diabetes Sister Heart disease Surgical History history right simple mastectomy (04/26/19) history right stereotactic biopsy (04/05/19) History of mitral valve replacement with bioprosthetic valve (11/23/09) H/O coronary artery bypass surgery (11/23/09) History of carpal tunnel release History of knee surgery History of hysterectomy Social History Smoking Status: Never smoker alcohol intake: never substance use type: does not use what type of physical activity do you participate in: none Vital Signs Vital Signs Vital Signs: 06/03/24 15:30 06/03/24 16:43 06/03/24 17:00 Temperature 97.2 F L Temperature Source Oral Pulse Rate 84 85 Respiratory Rate 18 16 Respiratory Effort Respiratory Depth Respiratory Pattern Blood Pressure 140/44 H 133/49 H Blood Pressure Mean 76 77 Blood Pressure Source Blood Pressure Position Blood Pressure Location Pulse Ox 99 95 Oxygen Delivery Method Room Air Room Air 06/03/24 18:00 06/03/24 19:00 06/03/24 19:40 Temperature 97.2 F L Temperature Source Pulse Rate 67 69 69 Respiratory Rate 20 H 19 H 19 H Respiratory Effort Respiratory Depth Respiratory Pattern Blood Pressure 139/52 H 112/52 L 112/52 L Blood Pressure Mean 81 72 72 Blood Pressure Source Blood Pressure Position Blood Pressure Location Pulse Ox 95 94 94 Oxygen Delivery Method Room Air Room Air 06/03/24 20:00 06/03/24 22:00 06/03/24 23:00 Temperature Temperature Source Pulse Rate 72 72 73 Respiratory Rate 18 20 H 18 Respiratory Effort Respiratory Depth Respiratory Pattern Blood Pressure 136/61 H 128/58 H 123/53 H Blood Pressure Mean 86 81 76 Blood Pressure Source Blood Pressure Position Blood Pressure Location Pulse Ox 97 96 Oxygen Delivery Method Room Air Room Air Room Air 06/04/24 00:00 06/04/24 00:49 06/04/24 01:04 Temperature 97.8 F Temperature Source Temporal Pulse Rate 74 81 Respiratory Rate 21 H 16 Respiratory Effort Respiratory Depth Respiratory Pattern Blood Pressure 128/55 H 137/77 H Blood Pressure Mean 79 97 Blood Pressure Source Monitor Blood Pressure Position Semi-Fowlers Blood Pressure Location Left Arm Pulse Ox 95 95 Oxygen Delivery Method Room Air Room Air Room Air 06/04/24 04:50 06/04/24 05:44 06/04/24 08:27 Temperature 97.0 F L 98 F Temperature Source Temporal Oral Pulse Rate 83 87 Respiratory Rate 18 16 Respiratory Effort Respiratory Depth Respiratory Pattern Blood Pressure 132/67 H 135/60 H Blood Pressure Mean 88 85 Blood Pressure Source Monitor Monitor Blood Pressure Position Semi-Fowlers Semi-Fowlers Blood Pressure Location Left Arm Left Arm Pulse Ox 98 97 97 Oxygen Delivery Method Room Air Room Air Room Air 06/04/24 08:52 Temperature Temperature Source Pulse Rate Respiratory Rate Respiratory Effort Normal Non-Labored Respiratory Depth Normal Respiratory Pattern Normal Blood Pressure Blood Pressure Mean Blood Pressure Source Blood Pressure Position Blood Pressure Location Pulse Ox Oxygen Delivery Method Room Air Weight Weight: 46.8 kg Body Mass Index (BMI) 17.6 EEG Results Procedure Details EEG Procedure Details: LAKEISHA SHIRLEY is a 88 year old F with a past medical history of , who presents for evaluation of Electroencephalogram on DATE at TIME NIHSS NIHSS Nursing Documentation NIHSS Nursing Documentation: NIHSS: Ischemic Stroke/TIA Start: 06/04/24 00:26 Text: For PCU Patients: NIH and Neuro Check every 4 Status: Active hours, PRN and with change in RN caregiver. Freq: [id number] Protocol: Activity Type Activity Date Activity User E-sign Co-sign Detail Recorded Client Recorded Date Recorded By Document 06/04/24 08:23 KRAIG [id number] 06/04/24 08:27 KRAIG 06/04/24 08:23 NIH Stroke Scale [NIHSS] A score of 0 is normal or asymptomatic . Total possible score is 42. Inpatient: RN or Physician to activate a stroke alert for onset of new stroke symptoms or with NIHSS increase >/= 3 points. Following change in neurological status, NIHSS will be performed per physician order or more frequently PRN. -1a. Level of Consciousness Alert; keenly responsive -1b. LOC Questions Answers BOTH questions correctly. -1c. LOC Commands Performs both tasks correctly . -2. Best Gaze Normal -3. Visual No visual loss -4. Facial Palsy Normal symmetrical movements -5a. Left Arm No drift; arm holds 90 (or 45 ) degrees for full 10 seconds -5b. Right Arm No drift; arm holds 90 (or 45 ) degrees for full 10 seconds -6a. Left Leg No drift; leg holds 30-degree position for full 5 seconds -6b. Right Leg No drift; leg holds 30-degree position for full 5 seconds -7. Limb Ataxia Absent -8. Sensory Normal; no sensory loss -9. Best Language No aphasia; normal -10. Dysarthria Normal -11. Extinction and Inattention No abnormality -Total 0 Query Text:A score of 0 is normal or asymptomatic. Total possible score is 42 . ED: Notify Physician for NIHSS increase by > / = 3 points. Inpatient: RN or Physician to activate a stroke alert for NIHSS increase of > / = 3 points. Coma Scale [Assess] -Eye Opening Spontaneous -Motor Obeys Commands -Verbal Oriented [Total] -Coma Scale Total 15 Physical Exam Neuro oriented x3 and CN's II-XII intact bilaterally Sensorium / Orientation: awake, alert, oriented to person, oriented to place and oriented to time Cranial Nerves: CN normal except as noted and CN VIII (vestibulocochlea) CN VIII Findings: Positive for other (Normal - no nystagmus or skew) Coordination / Balance: [id number] test normal and [id number] test normal Speech: speech normal Motor Exam: strength 5/5 throughout, no pronator drift and tremor Type: Positive for postural (Bilateral hand postural >intention tremor. Side to side tremor of the head) Lab / Micro Data 06/04/24 05:59 06/04/24 05:59 Labs: Laboratory Results - last 24 hr 06/03/24 15:53: WBC 11.8 H, RBC 4.49, Hgb 13.1, Hct 40.1, MCV 89.3, MCH 29.2, MCHC 32.7, RDW Std Deviation 43.6, RDW Coeff of Juliana 13.3, Plt Count 241, MPV 11.0, Immature Gran % (Auto) 0.200, Neut % (Auto) 45.2 L, Lymph % (Auto) 40.7, M ki % (Auto) 13.3 H, Eos % (Auto) 0.3, Baso % (Auto) 0.3, Absolute Neuts (auto) 5.3, Absolute Lymphs (auto) 4.79 H, Nucleated RBC % 0, Differential Comment SCANNED, Diff Path Review September foll, Sodium 136, Potassium 3.9, Chloride 105, Carbon Dioxide 22.0, Anion Gap 9, BUN 16, Creatinine 1.26 H, Estim Creat Clear Calc 27.68, Est GFR (MDRD) Af Amer 52 L, Est GFR (MDRD) Non-Af 43 L, BUN/Creatinine Ratio 12.7, Glucose 179 H, Calcium 9.8, Total Bilirubin 0.70, Direct Bilirubin 0.22, AST 26, ALT 21, Alkaline Phosphatase 58, Troponin I High Sens 13, Total Protein 7.6, Albumin 3.7, Globulin 3.9, TSH 3.330 06/03/24 17:50: Urine Color Yellow, Urine Clarity Clear, Urine pH 6.5, Ur Specific [place] 1.010, Urine Protein 30 H, Urine Glucose (UA) 50 H, Urine Ketones Negative, Urine Occult Blood 10 H, Urine Nitrite Negative, Urine Bilirubin Negative, Urine Urobilinogen Normal, Ur Leukocyte Esterase Negative, Urine RBC 0 SEEN, Urine WBC 0 SEEN, Ur Squamous Epith Cells 0 SEEN, Urine Bacteria 0 SEEN, Urine Mucus 0 SEEN 06/04/24 01:03: POC Glucose 118 H 06/04/24 05:59: WBC 6.9, RBC 4.20, Hgb 12.1, Hct 37.6, MCV 89.5, MCH 28.8, MCHC 32.2, RDW Std Deviation 44.4 H, RDW Coeff of Juliana 13.5, Plt Count 219, MPV 10.6, Sodium 138, Potassium 4.0, Chloride 107, Carbon Dioxide 26.0, Anion Gap 5, BUN 12, Creatinine 0.96, Estim Creat Clear Calc 31.08, Est GFR (MDRD) Af Amer 71, E st GFR (MDRD) Non-Af 59 L, BUN/Creatinine Ratio 12.5, Glucose 121 H, Calcium 9.2, Triglycerides 106, Cholesterol 77, LDL Cholesterol 23, VLDL Cholesterol 21, HDL Cholesterol 33 L 06/04/24 06:16: POC Glucose 119 H Imaging Radiology Impression Head/Neck CTA 06/03/24 16:08 IMPRESSION: Normal CTA Head and neck with contrast. Electronically Signed: Jeramy Figueroa MD at 18:50 EST , Chest X-Ray 06/03/24 16:28 IMPRESSION: No acute disease status post median sternotomy and CABG Electronically Signed: Duarte Davila MD at 17:32 EST , Active Medications Active Medications Active Medications: Current Medications Generic Name Dose Route Start Last Admin Trade Name Freq PRN Reason Stop Dose Admin Acetaminophen 650 mg 06/04/24 00:26 Acetaminophen 325 Mg Tablet PO Q6H PRN PRN Pain 1-10 Or Fever>100.7 Aspirin 81 mg 06/04/24 10:00 06/04/24 09:11 Aspirin E.C. 81 Mg Tablet PO 81 mg DAILY UZMA Administration Atorvastatin Calcium 40 mg 06/04/24 22:00 Atorvastatin Calcium 40 Mg Tablet PO QHS [facility] Citalopram Hydrobromide 10 mg 06/04/24 10:00 06/04/24 09:11 Citalopram 10 Mg Tablet PO 10 mg DAILY [facility] Administration Glucagon 1 mg 06/04/24 00:26 Glucagon 1 Mg/Ml Syringe IM X1 PRN Hypoglycemia Protocol Hydralazine HCl 5 mg 06/04/24 00:26 Hydralazine 20 Mg/Ml Vial IV 06/05/24 00:26 Q30M PRN maintain BP parameters with HR <60 Dextrose 250 mls @ 0 mls/hr 06/04/24 00:26 Dextrose 10%-Water IV .Q0M PRN HYPOGLYCEMIA Protocol As Directed Insulin Human Lispro 0 unit 06/04/24 00:26 06/04/24 06:16 Insulin Lispro 100 Unit/Ml Insuln.Pen SC Not Given ACHS [facility] Protocol Labetalol HCl 10 - 20 mg 06/04/24 00:26 Labetalol 20mg/4ml Syringe IV 06/05/24 00:26 Q10M PRN PRN maintain BP parameters with HR >/=60 Levothyroxine Sodium 75 mcg 06/04/24 06:00 06/04/24 05:07 Levothyroxine 75 Mcg Tablet PO 75 mcg [id number]@0600 [facility] Administration Levothyroxine Sodium 37.5 mcg 06/05/24 06:00 Levothyroxine 75 Mcg Tablet PO Power@0600 [facility] Melatonin 3 mg 06/04/24 00:26 Melatonin 3 Mg Tablet PO QHS PRN PRN INSOMNIA Nutritional Formula (Lactose Free) 120 ml 06/04/24 08:00 06/04/24 09:14 Glucerna Shake 120 Ml Liquid PO 120 ml TIDCM [facility] Administration Ondansetron HCl 4 mg 06/04/24 00:26 Ondansetron 4 Mg/2 Ml Vial IV Q8H PRN PRN NAUSEA/VOMITING Sodium Chloride 10 - 40 ml 06/04/24 00:38 0.9% Saline Lock 10 Ml Syringe IV UD PRN SALINE FLUSH
[2024-06-04] MEDS: FLU VACCINE **HIGH DOSE** TV 24-25 180 MCG/0.5 ML SYRINGE IM (11:43)
[2024-06-04] MEDS: Insulin Lispro 100 UNIT/ML INSULN.PEN SC (11:49)
[2024-06-04 12:07] LABS: Bedside Glucose 209 mg/dL (74-106)
--- NOTE | 2024-06-04 13:15 | CASEMGMT ---
Social Work MRI negative for stroke. PHQ9 depression screen not warranted at this time. KATHERINE Espinosa
--- NOTE | 2024-06-04 13:39 | CASEMGMT ---
Met with pt to complete FU form. Pt GD at bedside. FU form explained to pt at this time who voiced understanding and signed form. Original form placed in pt?s chart and copy provided to the pt. Dr. Gibbs states that Vestibular PT is recommended after DC. This RN CM discussed this with the pt and the pt GD. Pt GD states that she is a caregiver for the pt. Pt and pt daughter state that they feel safe with this plan. Pt and pt GD state that they would be interested in attending [facility] for OP Vestibular therapy. Rx signed by Dr. Gibbs. Physical Rx given to the pt's GD at this time. Copy of Rx placed in pt chart. Pt GD states that she would prefer this RN CM to schedule the appt. Pt states that she prefers morning time. TC to [facility]. [facility] is currently closed d/t the weekend. Pt and pt GD updated that an appt will have to be created Thursday, and that they are agreeable to do this. Pt and pt GD deny further questions, concerns, or needs at this time. Gena Castaneda RN, CM
--- NOTE | 2024-06-04 14:22 | DCINST_ITS ---
Discharge Instructions Diet Discharge Diet: Carb Control Diet (Sugar restricted diet) DC O2, CPAP, BIPAP needs Home O2 Discharge instructions: No Dressing / Incision Discharge Activity: Return to Normal Activity Weight Bearing Status: Full weight bearing Follow Up Care Test Results: Test results from this visit will be discussed in further detail at your follow- up appointment, if applicable. Discharge Plan Admission Admit Date/Time: 06/03/24 19:15 Primary Reason for Your Visit: Vertigo Attending Provider: Arsalan Mcpherson Primary Care Provider: Renetta Barr Consulting Providers: Arnaud Mishra; Nik Cain; Chantelle Verma; Cathy Cain; Georgiana Jackson; Twan Serrano; Radha Le; Taurus Weems; Kristofer Fonseca; Marlo Jefferson; Nazanin Neville; Harry Powell; Bailey Dahl; Micah Ramos; Duglas Giron; Wolfgang Haywood; Casey Mclaughlin; Ovi Darnell; Genevieve Ramesh; Toby Darby; Shaggy Holman Instructions Additional Instructions / Restrictions: Follow-up with vestibular physical therapy Discharge Orders/Prescriptions Prescriptions: New diazepam [Valium] 2 mg tablet 2 mg PO .AD Qty: 40 0RF Rx Instructions: 1 tab 3-4 times a day for dizziness-take for 5 days then use as needed every 6 hours, do not take with lorazepam Continued aspirin [Adult Aspirin Regimen] 81 mg tablet,delayed release (DR/EC) 81 mg PO DAILY acetaminophen [Tylenol] 325 mg capsule 325 mg PO ONCE PRN (Reason: pain) citalopram 10 mg tablet 10 mg PO DAILY Qty: 90 3RF metformin 500 mg tablet extended release 24 hr 1,000 mg PO BID 90 Days Qty: 360 1RF (DME) blood sugar diagnostic 1 EACH strip 0 ( .Route .MEDSUPPLY Rx Instructions: check glucose daily for type 2 DM (DME) OneTouch Verio test strips Strip See Rx Instructions .ROUTE .MEDSUPPLY Qty: 100 3RF Rx Instructions: check blood glucose once daily for type 2 DM (DME) lancets [Unilet Lancet] 33 gauge misc See Rx Instructions .Route Qty: 100 0RF Rx Instructions: As directed levothyroxine 75 mcg tablet See Rx Instructions .ROUTE .COMPLEX Qty: 90 3RF Dose Instruction: TAKE 1 TABLET BY MOUTH DAILY except on sundays. take ONE-HALF TABLET on sundays Rx Instructions: TAKE 1 TABLET BY MOUTH DAILY except on sundays. take ONE-HALF TABLET on sundays hydrochlorothiazide 12.5 mg tablet See Rx Instructions .ROUTE .COMPLEX Qty: 90 1RF Dose Instruction: TAKE 1 TABLET BY MOUTH DAILY Rx Instructions: TAKE 1 TABLET BY MOUTH DAILY rosuvastatin [Crestor] 40 mg tablet 40 mg PO QHS Qty: 90 3RF metoprolol tartrate 25 mg tablet 12.5 mg PO BID 90 Days Qty: 90 1RF sitagliptin phosphate 100 mg tablet 100 mg PO DAILY Qty: 90 3RF Discontinued lorazepam 0.5 mg tablet 0.5 mg PO DAILY PRN (Reason: anxiety) Qty: 3 0RF Referrals / Follow Up: Renetta Barr MD [Primary Care Provider] - Within 2 Weeks Disposition Disposition (needs filled in before D/C Order can be placed): Home, Self Care
--- NOTE | 2024-06-04 14:34 | PCM.DC.SUM ---
Providers Date of Admission: 06/03/24 Date of Discharge: 06/04/24 Primary Care Physician: Dr. Renetta Barr MD Consultations 06/04/24 00:26 Consult: Tele-Neurology Routine Consulting Provider: [facility] Reason for Consult: Acute Ischemic Stroke/TIA EMERGENT Consult: No MD Notified: Yes Date Notified: 06/04/24 Time Notified: 01:38 Method of Notification: Answering Service Nursing Unit Staff Notify [facility] of Tele-Neurology Consult: Yes Reason For Visit: STROKELIKE SYMPTOMS Diagnosis Discharge Diagnosis (1) Vertigo: Status: Acute Code(s): R42 - Dizziness and giddiness (2) Nausea and vomiting: Status: Acute Code(s): R11.2 - Nausea with vomiting, unspecified (3) Ataxic gait: Status: Acute Code(s): R26.0 - Ataxic gait Plan 1. Benign vertigo #2 chronic anxiety #3 atherosclerotic heart disease #4 type 2 diabetes #5 hypothyroidism Medications at Discharge Home Medications aspirin 81 mg tablet,delayed release (Adult Aspirin Regimen) 81 mg PO DAILY heart health 07/29/17 blood sugar diagnostic 03/17/20 acetaminophen 325 mg capsule (Tylenol) 325 mg PO ONCE PRN pain 01/06/22 blood sugar diagnostic (OneTouch Verio test strips) #100 ea 06/02/22 lancets 33 gauge (Unilet Lancet) #100 ea 06/02/22 levothyroxine 75 mcg tablet See Rx Instructions .Route .COMPLEX #90 tabs 06/04/23 hydrochlorothiazide 12.5 mg tablet See Rx Instructions .Route .COMPLEX #90 tabs 06/30/23 rosuvastatin 40 mg tablet (Crestor) 40 mg PO QHS cholesterol #90 tabs 07/02/23 citalopram 10 mg tablet 10 mg PO DAILY #90 tabs 07/22/23 metoprolol tartrate 25 mg tablet 12.5 mg (1/2 x 25 mg) PO BID 3 months #90 tabs 01/09/24 sitagliptin phosphate 100 mg tablet 100 mg PO DAILY diabetes #90 tabs 01/18/24 metformin 500 mg tablet,extended release 24 hr 1,000 mg (2 x 500 mg) PO BID 3 months #360 tabs 04/20/24 diazepam 2 mg tablet (Valium) 2 mg PO .AD #40 tabs 06/04/24 Right breast prosthesis #1 ea 06/06/24 Hospital Course Operations None Procedures None Summary of Care Provided Minutes Spent on Discharge: 31 Hospital Course: This 88-year-old white female was seen in the emergency room at [facility] with a chief complaint of difficulty ambulating due to dizziness. She also had associated nausea and vomiting. She has had the symptoms for 4 days. CBC and BMP are unremarkable, CT of the head and neck was unremarkable. Patient was admitted to PCU and an echocardiogram was obtained-there was noted to be a bioprosthetic mitral valve with normal EF and mild pulmonary hypertension. Patient was seen by PT and OT and teleneurology saw the patient. It was felt that the patient had vertigo and it was recommended that she follow-up with vestibular therapy as an outpatient. Brain MRI was unremarkable. On 06/04/2024: Patient was seen and examined: On examination she appeared in good health and spirits, she does not appear to be in any distress. Vital signs as documented. Skin warm and dry and without overt rashes. Neck without JVD, thyroid appears normal, trachea is midline, neck is supple. Lungs clear, normal air movement was noted. Heart exam notable for regular rhythm, normal sounds and absence of murmurs, rubs or gallops. Abdomen unremarkable and without evidence of organomegaly, masses, or abdominal aortic enlargement, bowel sounds are present in all 4 quadrants, no abdominal tenderness was noted. Extremities nonedematous, no cyanosis was noted, no clubbing was noted. Neuro: Cranial nerves II through XII are grossly intact, no focal motor deficits were noted, sensation to light touch and pinprick is intact, motor exam 5/5 throughout. Psych: Patient is alert and oriented x3, she does not appear anxious or depressed, she does not appear agitated. Patient was felt to be stable for discharge on 06/04/2024 Weight / BMI Weight Weight: 46.8 kg Body Mass Index (BMI) 17.6 ABG / Lab / Microbiology Data 06/04/24 05:59 06/04/24 05:59 Laboratory: Laboratory Results - last 24 hr 06/03/24 15:53: WBC 11.8 H, RBC 4.49, Hgb 13.1, Hct 40.1, MCV 89.3, MCH 29.2, MCHC 32.7, RDW Std Deviation 43.6, RDW Coeff of Juliana 13.3, Plt Count 241, MPV 11.0, Immature Gran % (Auto) 0.200, Neut % (Auto) 45.2 L, Lymph % (Auto) 40.7, Mckean % (Auto) 13.3 H, Eos % (Auto) 0.3, Baso % (Auto) 0.3, Absolute Neuts (auto) 5.3, Absolute Lymphs (auto) 4.79 H, Nucleated RBC % 0, Differential Comment SCANNED, Diff Path Review September, Sodium 136, Potassium 3.9, Chloride 105, Carbon Dioxide 22.0, Anion Gap 9, BUN 16, Creatinine 1.26 H, Estim Creat Clear Calc 27.68, Est GFR (MDRD) Af Amer 52 L, Est GFR (MDRD) Non-Af 43 L, BUN/Creatinine Ratio 12.7, Glucose 179 H, Calcium 9.8, Total Bilirubin 0.70, Direct Bilirubin 0.22, AST 26, ALT 21, Alkaline Phosphatase 58, Troponin I High Sens 13, Total Protein 7.6, Albumin 3.7, Globulin 3.9, TSH 3.330 06/03/24 17:50: Urine Color Yellow, Urine Clarity Clear, Urine pH 6.5, Ur Specific [place] 1.010, Urine Protein 30 H, Urine Glucose (UA) 50 H, Urine Ketones Negative, Urine Occult Blood 10 H, Urine Nitrite Negative, Urine Bilirubin Negative, Urine Urobilinogen Normal, Ur Leukocyte Esterase Negative, Urine RBC 0 SEEN, Urine WBC 0 SEEN, Ur Squamous Epith Cells 0 SEEN, Urine Bacteria 0 SEEN, Urine Mucus 0 SEEN 06/04/24 01:03: POC Glucose 118 H 06/04/24 05:59: WBC 6.9, RBC 4.20, Hgb 12.1, Hct 37.6, MCV 89.5, MCH 28.8, MCHC 32.2, RDW Std Deviation 44.4 H, RDW Coeff of Juliana 13.5, Plt Count 219, MPV 10.6, Sodium 138, Potassium 4.0, Chloride 107, Carbon Dioxide 26.0, Anion Gap 5, BUN 12, Creatinine 0.96, Estim Creat Clear Calc 31.08, Est GFR (MDRD) Af Amer 71, Est GFR (MDRD) Non-Af 59 L, BUN/Creatinine Ratio 12.5, Glucose 121 H, Calcium 9.2, Triglycerides 106, Cholesterol 77, LDL Cholesterol 23, VLDL Cholesterol 21, HDL Cholesterol 33 L 06/04/24 06:16: POC Glucose 119 H 06/04/24 11:49: POC Glucose 209 H Radiography Diagnostic Testing: Radiology Impression Head/Neck CTA 06/03/24 16:08 IMPRESSION: Normal CTA Head and neck with contrast. Electronically Signed: Jeramy Figueroa MD at 18:50 EST , Chest X-Ray 06/03/24 16:28 IMPRESSION: No acute disease status post median sternotomy and CABG Electronically Signed: Duarte Davila MD at 17:32 EST , Echocardiogram 06/03/24 19:20 Interpretation Summary Normal LV size. Left ventricular systolic function is normal. The left ventricular ejection fraction is 60 %. Bioprosthetic mitral valve. Stage 1 diastolic dysfunction. Pulmonary artery systolic pressure is 40 mmHg. Ordering Physician: Shaggy Holman Referring Physician: Renetta Barr Performed By: Eileen Machado, RDCS, RVT Brain MRI 06/04/24 19:20 IMPRESSION: No evidence for acute infarct. Mild chronic involutional and white matter changes. Electronically Signed: Radha Frank MD at 12:33 EST , D/C Instructions Discharge Diet: Carb Control Diet (Sugar restricted diet) Weight Bearing Status: Full weight bearing DC O2, CPAP, BIPAP Needs Home O2 Discharge instructions: No Meaningful Use Info Meaningful Use Meaningful Use Diagnoses (Choose all that apply): None applicable Ischemic Stroke Statin Dosing Therapy Reference: STATIN DOSE THERAPY REFERENCE: * Patients > 75 years receive moderate or high dose statin therapy. * Patients 75 years or YOUNGER should receive HIGH intensity statin dose unless contraindicated. You will be required to document reason for non-treatment if statin daily dose does not meet guidelines. HIGH DOSE STATIN THERAPY DAILY Atorvastatin > than or = to 40 mg Rosuvastatin > than or = to 20 mg Amlodipine + Atorvastatin > than or = to 2.5/40 mg Ezetimibe + Simvastatin 10/80 mg Simvastatin 80mg Discharge Plan Admission Admit Date/Time: 06/03/24 19:15 Primary Reason for Your Visit: Vertigo Attending Provider: Arsalan Mcpherson Primary Care Provider: Renetta Barr Consulting Providers: Arnaud Mishra; Nik Cain; Chantelle Verma; Cathy Cain; Georgiana Jackson; Twan Serrano; Radha Le; Taurus Weems; Kristofer Fonseca; Marlo Jefferson; Nazanin Neville; Harry Powell; Bailey Dahl; Micah Ramos; Duglas Giron; Wolfgang Haywood; Casey Mclaughlin; Ovi Darnell; Genevieve Ramesh; Toby Darby; Shaggy Holman Instructions Additional Instructions / Restrictions: Follow-up with vestibular physical therapy Discharge Orders/Prescriptions Prescriptions: New diazepam [Valium] 2 mg tablet 2 mg PO .AD Qty: 40 0RF Rx Instructions: 1 tab 3-4 times a day for dizziness-take for 5 days then use as needed every 6 hours, do not take with lorazepam Continued aspirin [Adult Aspirin Regimen] 81 mg tablet,delayed release (DR/EC) 81 mg PO DAILY acetaminophen [Tylenol] 325 mg capsule 325 mg PO ONCE PRN (Reason: pain) citalopram 10 mg tablet 10 mg PO DAILY Qty: 90 3RF metformin 500 mg tablet extended release 24 hr 1,000 mg PO BID 90 Days Qty: 360 1RF (DME) blood sugar diagnostic 1 EACH strip 0 ( .Route .MEDSUPPLY Rx Instructions: check glucose daily for type 2 DM (DME) OneTouch Verio test strips Strip See Rx Instructions .ROUTE .MEDSUPPLY Qty: 100 3RF Rx Instructions: check blood glucose once daily for type 2 DM (DME) lancets [Unilet Lancet] 33 gauge misc See Rx Instructions .Route Qty: 100 0RF Rx Instructions: As directed levothyroxine 75 mcg tablet See Rx Instructions .ROUTE .COMPLEX Qty: 90 3RF Dose Instruction: TAKE 1 TABLET BY MOUTH DAILY except on sundays. take ONE-HALF TABLET on sundays Rx Instructions: TAKE 1 TABLET BY MOUTH DAILY except on sundays. take ONE-HALF TABLET on sundays hydrochlorothiazide 12.5 mg tablet See Rx Instructions .ROUTE .COMPLEX Qty: 90 1RF Dose Instruction: TAKE 1 TABLET BY MOUTH DAILY Rx Instructions: TAKE 1 TABLET BY MOUTH DAILY rosuvastatin [Crestor] 40 mg tablet 40 mg PO QHS Qty: 90 3RF metoprolol tartrate 25 mg tablet 12.5 mg PO BID 90 Days Qty: 90 1RF sitagliptin phosphate 100 mg tablet 100 mg PO DAILY Qty: 90 3RF Discontinued lorazepam 0.5 mg tablet 0.5 mg PO DAILY PRN (Reason: anxiety) Qty: 3 0RF No Action (DME) Right breast prosthesis See Rx Instructions .Route .MEDSUPPLY Qty: 1 0RF Rx Instructions: As directed Referrals / Follow Up: Renetta Barr MD [Primary Care Provider] - Within 2 Weeks Disposition Disposition (needs filled in before D/C Order can be placed): Home, Self Care Charges/Coding Visit Charges Inpatient E&M: 19073 Disch Hosp >30min
--- NOTE | 2024-06-04 19:20 | MRI_ITS ---
HISTORY: CVA rule out, dizzy, vomiting. TECHNIQUE: Multiplanar and multisequence MR images of the brain were obtained without contrast. 277 images. COMPARISON: CT prior day. FINDINGS: BRAIN PARENCHYMA: Mild periventricular white matter changes. Mild chronic right parietal infarct. No abnormal focus of restricted diffusion. No acute intracranial hemorrhage identified. CSF SPACES: Mild volume loss. No significant midline shift or other mass effect.No extra-axial fluid collection. VASCULAR SYSTEM: Major intracranial flow voids are maintained. PARANASAL SINUSES AND MASTOID AIR CELLS: Very mild paranasal sinus mucosal thickening. ORBITS: Bilateral lens resections. MRI/Brain without Contrast IMPRESSION: No evidence for acute infarct. Mild chronic involutional and white matter changes. Electronically Signed: Radha Frank MD at 12:33 EST ,
[2024-06-04 20:31] LABS: Bedside Glucose 87 mg/dL (74-106)
[2024-06-04 23:19] LABS: Bedside Glucose 87 mg/dL (74-106)
--- NOTE | 2024-06-05 14:04 | CASEMGMT ---
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 Telephone call to the patient at this time. Patient states that she is currently at home sitting in her chair with her family members. Patient states that she is doing fine at this time. Patient denies any current dizziness. Patient states that she has been using a walker for ambulation. However, patient states that she fell last night, even with her granddaughter Monique being at home with her. Patient states that she took a Valium and that this helped her dizziness at the time. Patient states that she has been taking all of her other medications as prescribed. Patient also reports that her blood sugar levels have been under control. Patient denies the need to go into any urgent care or come back into the emergency department. Patient states that she's doing well now. Patient states that she has a granddaughter, Monique that is a nurse who helps her at home. Patient also states that she has a granddaughter, Nadia that helps her at home. Patient states that she normally lives with her great-grandson Kermit. Kermit is currently at the patient's home and declines to want to talk to this food general manager. Pts great-granddaughter, Selena, states that she would like to speak to this food general manager. Selena states that the patient is stable and that they do not want to come back into the hospital for revaluation. Selena states that she is interested in home health care being established, as Outpatient Therapy will not suffice at this time. The patient states that she is interested in home health care being established as well. Patient declines wanting to review a list of local in network home health care agencies and states that she is wanting to go through [facility]. Patient and patient family are aware that the home healthcare company is closed today and that they will be able to look at the referral tomorrow. Patient states that she would like fdc, PT, & OT. Patient states that she would feel safe with Home Health Care being established as all of her family members rotate caring for her at home as well. Patient states that her is currently in a alf and had a large stroke on May 18, 2024. Patient states that she has been under a lot of stress with this but states that she is happy with the support she is getting from her other family members. Patient denies any further questions or concerns at this time. Telephone call to the patient granddaughter, Monique. Monique states that she would like home health care to be established due to the patient's fall last night. Monique states that the patient wants to maintain as much independence as possible, and would prefer Home Health Care versus further rehabilitation at a fdc facility. Monique also states that she is interested in private duty information, resources provided. Monique states that she is also interested in transportation services, resources provided. Monique states that she is one of the primary Caregivers for the patient and would like to be notified if and when the home healthcare company can accept and start care. Telephone call to [facility] home health care at this time and referral made for skill nursing, PT, and OT. CM to follow up tomorrow, when the home health care company is open. Monique States appreciation and declines any further questions or concerns at this time. CM to follow.
--- NOTE | 2024-06-06 11:11 | CASEMGMT ---
Briana from [facility] returns call and states that they are able to accept the pt for SOC Thursday. SW added to the referral. Briana states that she will call the pt and the pt JEREMÍAS Amaya to update them on the plan of care moving forward.
[2024-06-06 13:32] LABS: Pathologist Review Reviewed
== END 2024-06-04 14:30 | disposition home or self-care (01) ==
LOC: ED 16:40 → PCU 06-04 03:55
PROVIDERS: Physician Assistant; Admitting Provider Hospitalist; Emergency Provider Emergency Medicine; PCP Internal Medicine; Visit Provider Internal Medicine
DX: R42 Dizziness and giddiness (principal); I27.20 Pulmonary hypertension, unspecified; I48.0 Paroxysmal atrial fibrillation; E11.22 Type 2 diabetes mellitus with diabetic chronic kidney disease; N18.31 Chronic kidney disease, stage 3a; R11.2 Nausea with vomiting, unspecified; I12.9 Hypertensive chronic kidney disease with stage 1 through stage 4 chronic kidney disease, or unspecified chronic kidney disease; E03.9 Hypothyroidism, unspecified; I25.10 Atherosclerotic heart disease of native coronary artery without angina pectoris; R26.0 Ataxic gait; Z95.3 Presence of xenogenic heart valve; Z79.84 Long term (current) use of oral hypoglycemic drugs; E78.5 Hyperlipidemia, unspecified; G25.0 Essential tremor; Z23 Encounter for immunization; Z79.890 Hormone replacement therapy; Z79.899 Other long term (current) drug therapy; Z79.82 Long term (current) use of aspirin
CPT/HCPCS: 36415; 70496; 70498; 70551; 71045; 80048; 80061; 80076; 81001; 82962; 84443; 84484; 85025; 85027; 90662; 92523; 93005; 93306; 94668; 94762; 96361; 96374; 96375; 97161; 97165; 99221; 99285; Q9967; G0378; J2405

== ENCOUNTER 2024-08-17 08:45 | Outpatient (CLI) | payer MEDICARE, SELFPAY ==
[2024-08-17 12:51] LABS: Absolute Neutrophil Count 3.5 X10^3/uL (2.0-7.7); Basophil# 0.06 X10^3/uL; Basophil% 0.9 % (0-1); Eosinophil# 0.13 X10^3/uL; Hematocrit 39.6 % (37-47); Lymphocyte % 31.3 % (19-41); Mean Corp Hgb Conc 32.8 g/dL (32-36); Mean Corpuscular Hgb 29.7 pg (27.0-32.0); Mean Corpuscular Volume 90.4 fL (81-99); Mean Platelet Vol. 11.4 fl (6.2-12.0); Monocyte# 0.66 X10^3/uL; Monocyte% 10.3 % (0-10); NRBC Flagged by Analyzer 0 % (0-5); Neutrophil # 3.53 X10^3/uL (2.7-7.7); Neutrophil % 55.2 % (47-70); Platelet Count 249 K/mm3 (150-450); RBC Distribution Width CV 13.6 % (11.6-14.6); RBC Distribution Width SD 45.1 fl (35.1-43.9); Red Blood Count 4.38 M/mm3 (4.2-5.4); White Blood Count 6.4 K/mm3 (4.4-11.0)
[2024-08-17 13:18] LABS: Hemoglobin A1c 6.8 % (<=5.6)
[2024-08-17 13:23] LABS: Anion Gap 8 (5-15); BUN 17 mg/dL (4-19); Calcium,Total 9.9 mg/dL (7.6-11.0); Carbon Dioxide 26.4 mmol/L (21.0-32.0); Chloride 104 mmol/L (98-108); Creatinine, Serum 1.11 mg/dL (0.70-1.20); EST Glomerular Filtration Rate 48 (>60); Glucose 133 mg/dL (70-99); Potassium 5.6 mmol/L (3.3-5.1); Sodium Level 138 mmol/L (133-145); Vitamin B12 306 pg/mL (180-914)
== END 2024-08-17 23:59 | disposition home or self-care (01) ==
LOC: BIMLAB 08:45
PROVIDERS: Nurse Practitioner Family; PCP Internal Medicine; Referring Provider Internal Medicine; Visit Provider Internal Medicine
DX: E11.69 Type 2 diabetes mellitus with other specified complication (principal); E03.9 Hypothyroidism, unspecified; E53.8 Deficiency of other specified B group vitamins; I25.10 Atherosclerotic heart disease of native coronary artery without angina pectoris
CPT/HCPCS: 36415; 80048; 82607; 83036; 84443; 85025

== ENCOUNTER → 2024-09-30 | Outpatient (CLI) | payer MEDICARE, SELFPAY ==
[2024-09-30 14:06] LABS: Anion Gap 9 (5-15); BUN 17 mg/dL (4-19); BUN/Creat Ratio 15.4 RATIO (10-20); Calcium,Total 9.8 mg/dL (7.6-11.0); Carbon Dioxide 23.6 mmol/L (21.0-32.0); Chloride 106 mmol/L (98-108); Creatinine, Serum 1.12 mg/dL (0.70-1.20); EST Glomerular Filtration Rate 48 (>60); Glucose 144 mg/dL (70-99); Potassium 5.2 mmol/L (3.3-5.1); Sodium Level 138 mmol/L (133-145)
== END | disposition home or self-care (01) ==
LOC: BIMLAB 08:13
PROVIDERS: PCP Internal Medicine; Referring Provider Internal Medicine; Visit Provider Internal Medicine
DX: I10 Essential (primary) hypertension (principal)
CPT/HCPCS: 36415; 80048

== ENCOUNTER → 2024-10-12 | Outpatient (CLI) | payer MEDICARE, SELFPAY ==
[2024-10-12 13:17] LABS: Anion Gap 11 (5-15); BUN 21 mg/dL (4-19); BUN/Creat Ratio 14.4 RATIO (10-20); Calcium,Total 10.1 mg/dL (7.6-11.0); Carbon Dioxide 25.4 mmol/L (21.0-32.0); Chloride 100 mmol/L (98-108); Creatinine, Serum 1.46 mg/dL (0.70-1.20); EST Glomerular Filtration Rate 35 (>60); Glucose 163 mg/dL (70-99); Sodium Level 137 mmol/L (133-145)
== END | disposition home or self-care (01) ==
LOC: BIMLAB 08:09
PROVIDERS: PCP Internal Medicine; Referring Provider Internal Medicine; Visit Provider Internal Medicine
DX: E87.5 Hyperkalemia (principal)
CPT/HCPCS: 36415; 80048

== ENCOUNTER → 2025-01-18 | Outpatient (CLI) | payer MEDICARE, SELFPAY ==
[2025-01-18 11:50] LABS: Anion Gap 11 (5-15); BUN 17 mg/dL (4-19); BUN/Creat Ratio 15.2 RATIO (10-20); Calcium,Total 9.8 mg/dL (7.6-11.0); Carbon Dioxide 23.4 mmol/L (21.0-32.0); Chloride 102 mmol/L (98-108); Glucose 148 mg/dL (70-99); Potassium 4.9 mmol/L (3.3-5.1)
== END | disposition home or self-care (01) ==
LOC: LAB 10:04
PROVIDERS: PCP Internal Medicine; Referring Provider Internal Medicine; Visit Provider Internal Medicine
DX: E11.69 Type 2 diabetes mellitus with other specified complication (principal); E03.9 Hypothyroidism, unspecified
CPT/HCPCS: 36415; 80048; 84443

== ENCOUNTER → 2025-05-15 | Outpatient (CLI) | payer MEDICARE, SELFPAY ==
[2025-05-15 10:12] LABS: Hematocrit 39.3 % (37-47); Hemoglobin 12.5 g/dL (12.0-15.0); Immature Granulocytes Count 0.010 X10^3/uL (0.0-0.0); Mean Corp Hgb Conc 31.8 g/dL (32-36); Mean Corpuscular Volume 89.7 fL (81-99); Mean Platelet Vol. 10.9 fl (6.2-12.0); NRBC Flagged by Analyzer 0 % (0-5); Platelet Count 246 K/mm3 (150-450); RBC Distribution Width CV 14.0 % (11.6-14.6); RBC Distribution Width SD 45.9 fl (35.1-43.9); Red Blood Count 4.38 M/mm3 (4.2-5.4); White Blood Count 6.5 K/mm3 (4.4-11.0)
[2025-05-15 10:38] LABS: Creatinine, Urine (random) 58.30 mg/dL (28.00-217.00); Microalbumin,Random Urine 25.1 mg/L (<20 mg/L)
[2025-05-15 10:53] LABS: AST(SGOT) 21 U/L (<=31); Alanine Aminotransfer ALT/SGPT 11 U/L (<=34); Albumin, Serum 4.2 g/dL (3.4-4.8); Alkaline Phosphatase 65 U/L (35-104); Anion Gap 9 (5-15); BUN 21 mg/dL (4-19); BUN/Creat Ratio 17.1 RATIO (10-20); Calcium,Total 9.8 mg/dL (7.6-11.0); Carbon Dioxide 24.4 mmol/L (21.0-32.0); Chloride 105 mmol/L (98-108); Cholesterol 164 mg/dL (<=200); Globulin 3.1 g/dL (2.2-4.2); Glucose 137 mg/dL (70-99); Low Density Lipoprotein Calc. 100 mg/dL; Potassium 4.9 mmol/L (3.3-5.1); Triglycerides 111 mg/dL; Very Low Density Lipoprotein 22 mg/dL (5-40); cholesterol:hdl ratio screen 3.75
== END | disposition home or self-care (01) ==
LOC: LAB 08:36
PROVIDERS: PCP Internal Medicine; Referring Provider Internal Medicine; Visit Provider Internal Medicine
DX: E11.69 Type 2 diabetes mellitus with other specified complication (principal); E78.5 Hyperlipidemia, unspecified; E03.9 Hypothyroidism, unspecified
CPT/HCPCS: 36415; 80053; 80061; 82043; 82570; 84443; 85025